=== PATIENT | female | born 1995 | race Two or more races ===

== ENCOUNTER 2016-04-21 17:56 | Emergency (ER) | payer SELFPAY ==
[2016-04-21 18:32] VITALS: BP 106/60
== END 2016-04-21 19:15 | disposition left against medical advice (07) ==
LOC: ED 17:56
DX: F41.0 Panic disorder [episodic paroxysmal anxiety] (principal)

== ENCOUNTER → 2016-10-16 14:54 | Emergency (ER) | payer SELFPAY ==
[2016-10-16 15:16] VITALS: BP 111/80
== END | disposition left against medical advice (07) ==
LOC: ED 14:54
DX: R30.9 Painful micturition, unspecified (principal); Z53.21 Procedure and treatment not carried out due to patient leaving prior to being seen by health care provider

== ENCOUNTER 2016-11-11 11:49 | Emergency (ER) | payer SELFPAY ==
[2016-11-11] MEDS ORDERED: Ondansetron INJ* 2 MG/ML VIAL IV ONE (13:29)
[2016-11-11] MEDS ORDERED: NS 0.9% 1000 ML* 1,000 ML IV ONE (13:29)
[2016-11-11 14:02] LABS: Hematocrit 39 % (35-47); Mean Corpuscular HGB Conc 33 g/dl (31-36); Mean Corpuscular Hemoglobin 30 pg (27-31); Mean Corpuscular Volume 92 fL (80-97); Mean Platelet Volume 11 um3 (7.4-10.4); Red Cell Distribution Width 13 % (10.5-15); White Blood Count 7.3 10^3/ul (3.5-10.8)
[2016-11-11 14:24] LABS: ALT 8 U/L (7-52); AST 11 U/L (13-39); Albumin 4.5 g/dL (3.2-5.2); Alkaline Phosphatase 53 U/L (34-104); Anion Gap 6 mmol/L (2-11); BUN/Creatinine Ratio 18.8 (8-20); Blood Urea Nitrogen 15 mg/dL (6-24); C Reactive Protein < 1.00 mg/L (< 5.00); CO2 Carbon Dioxide 25 mmol/L (22-32); Calcium 9.3 mg/dL (8.6-10.3); Chloride 109 mmol/L (101-111); EGFR African American 117.6 (>60); EGFR Non-African American 91.4 (>60); Globulin 2.3 g/dL (2-4); Glucose 73 mg/dL (70-100); Lipase 22 U/L (11.0-82.0); Magnesium 1.9 mg/dL (1.9-2.7); Potassium 3.8 mmol/L (3.5-5.0); Sodium 140 mmol/L (133-145); Total Protein 6.8 g/dL (6.4-8.9)
[2016-11-11] MEDS ORDERED: Ketorolac INJ* 30 MG/ML 1 ML VIAL IV ONE (15:24)
[2016-11-11] MEDS ORDERED: Morphine INJ* 4 MG/ML 1 ML SYRINGE IV ONE (15:24)
[2016-11-11 15:40] LABS: Urine Bacteria 1+ (Absent); Urine Bilirubin Negative (Negative); Urine Glucose Negative (Negative); Urine Nitrite Negative (Negative)
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
[2016-11-11 18:46] VITALS: BP 101/56
== END 2016-11-11 18:45 | disposition home or self-care (01) ==
LOC: ED 11:49
DX: R10.2 Pelvic and perineal pain (principal); R11.0 Nausea
CPT/HCPCS: 36415; 80053; 81003; 81015; 83690; 83735; 84702; 85025; 86140; 87077; 87086; 87186; 87480; 87491; 87510; 87591; 87661; 96374; 96375; 99282; J1885; J2270; J2405

== ENCOUNTER 2016-11-12 13:33 | Emergency (ER) | payer SELFPAY ==
[2016-11-12 16:37] LABS: Hematocrit 37 % (35-47); Hemoglobin 12.4 g/dl (12.0-16.0); Mean Corpuscular HGB Conc 33 g/dl (31-36); Mean Corpuscular Hemoglobin 30 pg (27-31); Mean Corpuscular Volume 90 fL (80-97); Mean Platelet Volume 10 um3 (7.4-10.4); Red Blood Count 4.15 10^6/ul (4.0-5.4); Red Cell Distribution Width 13 % (10.5-15); White Blood Count 6.1 10^3/ul (3.5-10.8)
[2016-11-12 17:10] LABS: ALT 7 U/L (7-52); AST 11 U/L (13-39); Albumin 4.3 g/dL (3.2-5.2); Alkaline Phosphatase 50 U/L (34-104); Anion Gap 5 mmol/L (2-11); BUN/Creatinine Ratio 16.9 (8-20); Blood Urea Nitrogen 12 mg/dL (6-24); C Reactive Protein < 1.00 mg/L (< 5.00); CO2 Carbon Dioxide 26 mmol/L (22-32); Calcium 9.2 mg/dL (8.6-10.3); Chloride 108 mmol/L (101-111); Glucose 82 mg/dL (70-100); Potassium 4.1 mmol/L (3.5-5.0); Sodium 139 mmol/L (133-145); Total Protein 6.3 g/dL (6.4-8.9)
--- NOTE | 2016-11-12 17:57 | RAD ---
Indication: Pelvic pain. Real-time sonography of the pelvis was performed. The uterus measures 7.0 x 3.5 x 4.0 cm. Endometrial echo measures 6 mm. The right ovary measures 3.1 x 2.7 x 2.2 cm. Left ovary measures 3.7 x 2.4 x 1.1 cm. Trace amount of free fluid is noted in the cul-de-sac. Doppler interrogation demonstrates flow in both ovaries. IMPRESSION: Unremarkable pelvic sonogram with trace free fluid.
[2016-11-12 19:21] LABS: Urine Bacteria 1+ (Absent); Urine Bilirubin Negative (Negative); Urine Glucose Negative (Negative); Urine Nitrite Negative (Negative)
[2016-11-12 19:43] VITALS: BP 104/70
--- NOTE | 2016-11-15 09:45 | PN ---
Progress Note - Progress Note Date of Service: 11/14/16 Note: Urine culture grew E. Coli Patient placed on Bactrim prior to discharge Bactrim is sensitive to organism. Nothing further at this time. Arabella Mak PA-C
--- NOTE | 2016-11-26 07:34 | ED ---
Berlin Castle Thomas, scribed for Emre Hamilton MD on 11/12/16 at 1617 . Abdominal Pain/Female - HPI Summary HPI Summary: The pt is a 20 y/o F presenting to the ED c/o lower abd pain that began weeks ago but has worsened since yesterday. She [place] [facility] [place], when she was seen by Dr. Alvarenga for the same complaint. The pain radiates into her pelvic region. The pain is rated 10/10. The pain is aggravated by lying on her R side. The pain is alleviated by nothing. Pt additionally c/o R-sided numbness, pleuritic CP, nausea, and vomiting. Pt denies vaginal discharge and vaginal bleeding. The patient had a kidney infection two months ago. PMHx: kidney infection, ovarian cysts. PSHx: none. SHx: smoking, no alcohol, no illicit drugs. The patient reports that her constellation of symptoms is very similar to her last kidney infection. The patient has not had a menstrual period in multiple months because she has Nexplanon implant. - History of Current Complaint Chief Complaint: EDGeneral Stated Complaint: RT SIDE BODY NUMBNESS Time Seen by Provider: 11/12/16 16:02 Hx Obtained From: Patient, Medical Records Onset/Duration: Lasting Weeks, Still Present, Worse Since - yesterday Timing: Constant Severity Currently: Severe Pain Intensity: 10 Pain Scale Used: 0-10 Numeric Location: Other - Lower abd Radiates: Yes Radiates to: Other - Pelvic Aggravating Factor(s): Other: - lying on her R side Alleviating Factor(s): Nothing Associated Signs and Symptoms: Positive: Chest Pain - pleuritic, Nausea, Vomiting, Other: - POS: R-sided numbness. Negative: Fever, Vaginal Bleeding, Vaginal Discharge Allergies/Adverse Reactions: Allergies Allergy/AdvReac Type Severity Reaction Status Date / Time No Known Allergies Allergy Verified 11/12/16 16:35 PMH/Surg Hx/FS Hx/Imm Hx Previously Healthy: No Endocrine/Hematology History: Denies: Hx Anticoagulant Therapy, Hx Blood Disorders Respiratory History: Denies: Hx Asthma History: Reports: Hx Kidney Infection, Other Problems/Disorders - HX PCOS Musculoskeletal History: Reports: Other Musculoskeletal History - Lt foot fx Psychiatric History: Reports: Hx Anxiety, Hx Depression - Surgical History Surgery Procedure, Year, and Place: none Infectious Disease History: Denies: Traveled Outside the [place] in Last 30 Days - Family History Known Family History: Positive: Unknown - Patient is adopted - Social History Alcohol Use: None Hx Substance Use: No Substance Use Type: Reports: None Hx Tobacco Use: No Smoking Status (MU): Never Smoked Tobacco Review of Systems Constitutional: Negative Negative: Fever Positive: Chest Pain - pleuritic Positive: Abdominal Pain - lower abd, 10/10, worse since yesterday, radiates to pelvic region, Vomiting, Nausea Negative: discharge, other - NEG: vaginal bleeding Positive: Numbness - R-sided All Other Systems Reviewed And Are Negative: Yes Physical Exam - Summary Physical Exam Summary: VITAL SIGNS: Reviewed. GENERAL: Patient is a well-developed and nourished female who is lying comfortable in the stretcher. ~Patient is not in any acute respiratory distress. HEAD AND FACE: Normocephalic and atraumatic. EYES: PERRLA, EOMI x 2, No injected conjunctiva. EARS: Hearing grossly intact. Ear canals and tympanic membranes are WNL. MOUTH: Oropharynx within normal limits. NECK: Supple, trachea is midline, no adenopathy, no JVD. CHEST: Symmetric, no tenderness at palpation LUNGS: Clear to auscultation bilaterally. No wheezing or crackles. CVS: RRR, S1 and S2 present, no murmurs or gallops appreciated. ABDOMEN: There is some tenderness to the pelvic area. Soft, no signs of distention. Positive bowel sounds. No rebound no guarding, and no masses palpated. No abdominal bruit or pulsations. EXTREMITIES: FROM in all major joints, no edema, no cyanosis or clubbing. NEURO: Alert and oriented x 3. No acute neurological deficits. Speech is normal. SKIN: Dry and warm Triage Information Reviewed: Yes Vital Signs On Initial Exam: Initial Vitals Temp Pulse Resp BP Pulse Ox 98.4 F 97 18 105/78 100 11/12/16 13:41 11/12/16 13:41 11/12/16 13:41 11/12/16 13:41 11/12/16 13:41 Vital Signs Reviewed: Yes Diagnostics - Vital Signs Vital Signs Temp Pulse Resp BP Pulse Ox 11/12/16 13:41 98.4 F 97 18 105/78 100 - Laboratory Lab Results: Lab Results 0811/12/16 11/12/16 Range/Units 16:30 16:30 18:44 WBC 6.1 (3.5-10.8) 10^3/ul RBC 4.15 (4.0-5.4) 10^6/ul Hgb 12.4 (12.0-16.0) g/dl Hct 37 (35-47) % MCV 90 (80-97) fL MCH 30 (27-31) pg MCHC 33 (31-36) g/dl RDW 13 (10.5-15) % Plt Count 161 (150-450) 10^3/ul MPV 10 (7.4-10.4) um3 Neut % (Auto) 40.5 (38-83) % Lymph % (Auto) 45.7 (25-47) % [place] % (Auto) 8.5 (1-9) % Eos % (Auto) 4.4 (0-6) % Baso % (Auto) 0.9 (0-2) % Absolute Neuts (auto) 2.5 (1.5-7.7) 10^3/ul Absolute Lymphs (auto) 2.8 (1.0-4.8) 10^3/ul Absolute Monos (auto) 0.5 (0-0.8) 10^3/ul Absolute Eos (auto) 0.3 (0-0.6) 10^3/ul Absolute Basos (auto) 0.1 (0-0.2) 10^3/ul Absolute Nucleated RBC 0.01 10^3/ul Nucleated RBC % 0.2 Sodium 139 (133-145) mmol/L Potassium 4.1 (3.5-5.0) mmol/L Chloride 108 (101-111) mmol/L Carbon Dioxide 26 (22-32) mmol/L Anion Gap 5 (2-11) mmol/L BUN 12 (6-24) mg/dL Creatinine 0.71 (0.51-0.95) mg/dL Est GFR ( Amer) 135.0 (>60) Est GFR (Non-Af Amer) 105.0 (>60) BUN/Creatinine Ratio 16.9 (8-20) Glucose 82 (70-100) mg/dL Calcium 9.2 (8.6-10.3) mg/dL Total Bilirubin 0.60 (0.2-1.0) mg/dL AST 11 L (13-39) U/L ALT 7 (7-52) U/L Alkaline Phosphatase 50 (34-104) U/L C-Reactive Protein < 1.00 (< 5.00) mg/L Total Protein 6.3 L (6.4-8.9) g/dL Albumin 4.3 (3.2-5.2) g/dL Globulin 2.0 (2-4) g/dL Albumin/Globulin Ratio 2.2 (1-3) Urine Color Straw Urine Appearance Clear Urine pH 8.0 (5-9) Ur Specific [place] 1.009 L (1.010-1.030) Urine Protein Negative (Negative) Urine Ketones Negative (Negative) Urine Blood 1+ H (Negative) Urine Nitrate Negative (Negative) Urine Bilirubin Negative (Negative) Urine Urobilinogen Negative (Negative) Ur Leukocyte Esterase Negative (Negative) Urine WBC (Auto) Trace(0-5/hpf) (Absent) Urine RBC (Auto) Trace(0-2/hpf) (Absent) Ur Squamous Epith Cells Present H (Absent) Urine Bacteria 1+ H (Absent) Urine Glucose Negative (Negative) C.trachomatis (Amp Det) (Negative) N.gonorrhoeae (Amp Det) (Negative) 11/12/16 Range/Units 18:44 WBC (3.5-10.8) 10^3/ul RBC (4.0-5.4) 10^6/ul Hgb (12.0-16.0) g/dl Hct (35-47) % MCV (80-97) fL MCH (27-31) pg MCHC (31-36) g/dl RDW (10.5-15) % Plt Count (150-450) 10^3/ul MPV (7.4-10.4) um3 Neut % (Auto) (38-83) % Lymph % (Auto) (25-47) % [place] % (Auto) (1-9) % Eos % (Auto) (0-6) % Baso % (Auto) (0-2) % Absolute Neuts (auto) (1.5-7.7) 10^3/ul Absolute Lymphs (auto) (1.0-4.8) 10^3/ul Absolute Monos (auto) (0-0.8) 10^3/ul Absolute Eos (auto) (0-0.6) 10^3/ul Absolute Basos (auto) (0-0.2) 10^3/ul Absolute Nucleated RBC 10^3/ul Nucleated RBC % Sodium (133-145) mmol/L Potassium (3.5-5.0) mmol/L Chloride (101-111) mmol/L Carbon Dioxide (22-32) mmol/L Anion Gap (2-11) mmol/L BUN (6-24) mg/dL Creatinine (0.51-0.95) mg/dL Est GFR ( Amer) (>60) Est GFR (Non-Af Amer) (>60) BUN/Creatinine Ratio (8-20) Glucose (70-100) mg/dL Calcium (8.6-10.3) mg/dL Total Bilirubin (0.2-1.0) mg/dL AST (13-39) U/L ALT (7-52) U/L Alkaline Phosphatase (34-104) U/L C-Reactive Protein (< 5.00) mg/L Total Protein (6.4-8.9) g/dL Albumin (3.2-5.2) g/dL Globulin (2-4) g/dL Albumin/Globulin Ratio (1-3) Urine Color Urine Appearance Urine pH (5-9) Ur Specific Brandon (1.010-1.030) Urine Protein (Negative) Urine Ketones (Negative) Urine Blood (Negative) Urine Nitrate (Negative) Urine Bilirubin (Negative) Urine Urobilinogen (Negative) Ur Leukocyte Esterase (Negative) Urine WBC (Auto) (Absent) Urine RBC (Auto) (Absent) Ur Squamous Epith Cells (Absent) Urine Bacteria (Absent) Urine Glucose (Negative) C.trachomatis (Amp Det) Negative (Negative) N.gonorrhoeae (Amp Det) Negative (Negative) Result Diagrams: 11/12/16 16:30 11/12/16 16:30 Lab Statement: Any lab studies that have been ordered have been reviewed, and results considered in the medical decision making process. - Additional Comments Diagnostic Additional Comments: Transvaginal US. Interpreted by radiologist. Impression: Unremarkable pelvic sonogram with trace free fluid. Re-Evaluation - Re-Evaluation First Eval Re-Evaluation Time: 18:02 Change: Improved Comment: She is feeling better and her symptoms have resolved. At this point, we are only waiting on UA. She is ambulating and eating and drinking without N/ V. Abdominal Pain Fem Course/Dx - Course Course Of Treatment: The pt is a 20 y/o F presenting to the ED c/o lower abd pain that began weeks ago but has worsened since yesterday. She was a patient [place] [facility] [place], when she was seen by Dr. Alvarenga for the same complaint. The pain radiates into her pelvic region. The pain is rated 10/10. The pain is aggravated by lying on her R side. The pain is alleviated by nothing. Pt additionally c/o R-sided numbness, pleuritic CP, nausea, and vomiting. Pt denies vaginal discharge and vaginal bleeding. The patient had a kidney infection two months ago. PMHx: kidney infection, ovarian cysts. PSHx: none. SHx : smoking, no alcohol, no illicit drugs. The patient reports that her constellation of symptoms is very similar to her last kidney infection. The patient has not had a menstrual period in multiple months because she has Nexplanon implant. Tests are without significant abnormality. Transvaginal US reveals Unremarkable pelvic sonogram with trace free fluid. The patient is asymptomatic in the ED. She had a pelvic exam yesterday for which GC and chlamydia was sent, but they are still pending. The UA is still pending, results are nehative for UTI. At this point, since the patient is asymptomatic, we will discharge the patient with follow up by PCP. The patient declined another pelvic exam. The patient is alert and oriented x3 and rates her current level of pain 0/10. The patient is ambulating in the ED and eating and drinking without nausea and vomiting. - Diagnoses Provider Diagnoses: Back pain Discharge - Discharge Plan Condition: Stable Disposition: HOME Patient Education Materials: Back Pain (ED) Referrals: [facility] [place] - 3 Days The documentation as recorded by the [place] liang Thomas accurately reflects the service I personally performed and the decisions made by me, Emre Hamilton MD.
== END 2016-11-12 19:41 | disposition home or self-care (01) ==
LOC: ED 13:33
DX: M54.9 Dorsalgia, unspecified (principal); N39.0 Urinary tract infection, site not specified; B96.20 Unspecified Escherichia coli [E. coli] as the cause of diseases classified elsewhere; R10.30 Lower abdominal pain, unspecified; R07.9 Chest pain, unspecified; R11.2 Nausea with vomiting, unspecified
CPT/HCPCS: 36415; 76830; 80053; 81003; 81015; 85025; 86140; 87077; 87086; 87186; 87491; 87591; 99282

== ENCOUNTER 2016-12-01 14:19 | Emergency (ER) | payer SELFPAY ==
[2016-12-01 14:31] VITALS: BP 117/59
[2016-12-01] MEDS ORDERED: NS 0.9% 1000 ML* 1,000 ML IV ONE (16:21)
[2016-12-01] MEDS ORDERED: diPHENhydraMINE IV* 50 MG/ML 1 ml VIAL (BENADRYL) IV ONE (16:21)
[2016-12-01] MEDS ORDERED: Ondansetron INJ* 2 MG/ML VIAL IV ONE (16:21)
[2016-12-01 16:36] LABS: Hematocrit 42 % (35-47); Hemoglobin 14.2 g/dl (12.0-16.0); Mean Corpuscular HGB Conc 34 g/dl (31-36); Mean Corpuscular Hemoglobin 30 pg (27-31); Mean Corpuscular Volume 89 fL (80-97); Mean Platelet Volume 10 um3 (7.4-10.4); Red Blood Count 4.71 10^6/ul (4.0-5.4); Red Cell Distribution Width 14 % (10.5-15); White Blood Count 7.6 10^3/ul (3.5-10.8)
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
[2016-12-01] MEDS ORDERED: Ketorolac INJ* 30 MG/ML 1 ML VIAL IV PUSH ONE (17:12)
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
== END 2016-12-01 20:05 | disposition home or self-care (01) ==
LOC: ED 14:19
DX: S06.0X9A Concussion with loss of consciousness of unspecified duration, initial encounter (principal); S05.12XA Contusion of eyeball and orbital tissues, left eye, initial encounter; R51 Headache; R11.2 Nausea with vomiting, unspecified; Z72.0 Tobacco use; Y09 Assault by unspecified means; Y93.9 Activity, unspecified; Y92.9 Unspecified place or not applicable; M26.609 Unspecified temporomandibular joint disorder, unspecified side
CPT/HCPCS: 36415; 70450; 70486; 85025; 85610; 85730; 96374; 96375; 99283; J1200; J1885; J2405

== ENCOUNTER 2017-03-03 16:49 | Emergency (ER) | payer MEDICAID ==
[2017-03-03 19:28] LABS: Hematocrit 38 % (35-47); Hemoglobin 12.7 g/dl (12.0-16.0); Mean Corpuscular HGB Conc 33 g/dl (31-36); Mean Corpuscular Hemoglobin 30 pg (27-31); Mean Corpuscular Volume 90 fL (80-97); Mean Platelet Volume 11 um3 (7.4-10.4); Red Blood Count 4.24 10^6/ul (4.0-5.4); Red Cell Distribution Width 14 % (10.5-15)
[2017-03-03 19:44] LABS: ALT 10 U/L (7-52); AST 14 U/L (13-39); Albumin 4.4 g/dL (3.2-5.2); Alkaline Phosphatase 55 U/L (34-104); Anion Gap 4 mmol/L (2-11); BUN/Creatinine Ratio 16.9 (8-20); Blood Urea Nitrogen 12 mg/dL (6-24); CO2 Carbon Dioxide 28 mmol/L (22-32); Calcium 9.2 mg/dL (8.6-10.3); Chloride 104 mmol/L (101-111); EGFR African American 133.6 (>60); EGFR Non-African American 103.9 (>60); Globulin 2.7 g/dL (2-4); Glucose 85 mg/dL (70-100); Potassium 3.7 mmol/L (3.5-5.0); Sodium 136 mmol/L (133-145); Total Protein 7.1 g/dL (6.4-8.9)
[2017-03-03 20:34] LABS: Urine Bacteria Absent (Absent); Urine Bilirubin Negative (Negative); Urine Glucose Negative (Negative); Urine Nitrite Negative (Negative)
[2017-03-03 21:46] VITALS: BP 104/68
--- NOTE | 2017-03-03 22:01 | ED ---
Blade Castle Gabriel, scribed for Jose Perry MD on 03/03/17 at 1829 . Abdominal Pain/Female - HPI Summary HPI Summary: This patient is a 21 year old F presenting to [facility] with a chief complaint of ABD pain since 2 days ago. The patient rates the pain 8/10 in severity and describes it as constant. Symptoms aggravated by sleeping on her stomach. Patients LNMP was 02/07/17 and only lasted one day. Patient denies urination problems and bm problems. - History of Current Complaint Chief Complaint: EDAbdPain Stated Complaint: ABD PAIN Time Seen by Provider: 03/03/17 18:08 Hx Obtained From: Patient Hx Last Menstrual Period: 02/07/17 Onset/Duration: Lasting Days - 2, Still Present Timing: Constant Pain Intensity: 8 Pain Scale Used: 0-10 Numeric Location: Diffuse Aggravating Factor(s): Other: - position Associated Signs and Symptoms: Positive: Negative - problems urinating and bm problems Allergies/Adverse Reactions: Allergies Allergy/AdvReac Type Severity Reaction Status Date / Time No Known Allergies Allergy Verified 12/01/16 14:31 PMH/Surg Hx/FS Hx/Imm Hx Previously Healthy: No Endocrine/Hematology History: Denies: Hx Anticoagulant Therapy, Hx Blood Disorders Respiratory History: Denies: Hx Asthma History: Reports: Hx Kidney Infection, Other Problems/Disorders - HX PCOS Musculoskeletal History: Reports: Other Musculoskeletal History - Lt foot fx Neurological History: Reports: Other Neuro Impairments/Disorders - 5 concussions Psychiatric History: Reports: Hx Anxiety - no meds, has counselor - does not feel she's interactive, Hx Depression - Surgical History Surgery Procedure, Year, and Place: none Infectious Disease History: No Infectious Disease History: Denies: Traveled Outside the [place] in Last 30 Days - Family History Known Family History: Positive: Unknown - Patient is adopted - Social History Alcohol Use: None Hx Substance Use: Yes Substance Use Type: Reports: Marijuana Hx Tobacco Use: Yes Smoking Status (MU): Current Some Day Smoker Review of Systems Gastrointestinal: Negative - BM problems Positive: Abdominal Pain Positive: no symptoms reported All Other Systems Reviewed And Are Negative: Yes Physical Exam - Summary Physical Exam Summary: Appearance: The patient is well-nourished in no acute distress and in no acute pain. Skin: The skin is warm and dry and skin color reflects adequate perfusion. HEENT: ~The head is normocephalic and atraumatic. The pupils are equal and reactive. The conjunctivae are clear and without drainage. ~Nares are patent and without drainage. ~Mouth reveals moist mucous membranes and the throat is without erythema and exudate. ~The external ears are intact. The ear canals are patent and without drainage. The tympanic membranes are intact. Neck: the neck is supple with full range of motion and non-tender. There are no carotid bruits. ~There is no neck vein distension. Respiratory: Chest is non-tender. ~Lungs are clear to auscultation and breath sounds are symmetrical and equal. Cardiovascular: Heart is regular rate and rhythm. ~There is no murmur or rub auscultated. ~~There is no peripheral edema and pulses are symmetrical and equal. Abdomen: The abdomen is soft. ~There are normal bowel sounds heard in all four quadrants and there is no organomegaly palpated. Mild periumbilical tenderness Musculoskeletal: There is no back tenderness noted. ~Extremities are non-tender with full range of motion. ~There is good capillary refill. ~There is no peripheral edema or calf tenderness elicited. Neurological: Patient is alert and oriented to person, place and time. ~The patient has symmetrical motor strength in all four extremities. ~Cranial nerves are grossly intact. Deep tendon reflexes are symmetrical and equal in all four extremities. Psychiatric: The patient has an appropriate affect and does not exhibit any anxiety or depression. Triage Information Reviewed: Yes Vital Signs On Initial Exam: Initial Vitals Temp Pulse Resp BP Pulse Ox 98.2 F 80 16 105/60 99 03/03/17 16:51 03/03/17 16:51 03/03/17 16:51 03/03/17 16:51 03/03/17 16:51 Vital Signs Reviewed: Yes Diagnostics - Vital Signs Vital Signs Temp Pulse Resp BP Pulse Ox 03/03/17 16:51 98.2 F 80 16 105/60 99 - Laboratory Lab Results: Lab Results 03/03/17 03/03/17 03/03/17 Range/Units 19:20 19:20 20:00 WBC 9.0 (3.5-10.8) 10^3/ul RBC 4.24 (4.0-5.4) 10^6/ul Hgb 12.7 (12.0-16.0) g/dl Hct 38 (35-47) % MCV 90 (80-97) fL MCH 30 (27-31) pg MCHC 33 (31-36) g/dl RDW 14 (10.5-15) % Plt Count 170 (150-450) 10^3/ul MPV 11 H (7.4-10.4) um3 Neut % (Auto) 52.7 (38-83) % Lymph % (Auto) 36.9 (25-47) % [place] % (Auto) 8.2 (1-9) % Eos % (Auto) 1.4 (0-6) % Baso % (Auto) 0.8 (0-2) % Absolute Neuts (auto) 4.7 (1.5-7.7) 10^3/ul Absolute Lymphs (auto) 3.3 (1.0-4.8) 10^3/ul Absolute Monos (auto) 0.7 (0-0.8) 10^3/ul Absolute Eos (auto) 0.1 (0-0.6) 10^3/ul Absolute Basos (auto) 0.1 (0-0.2) 10^3/ul Absolute Nucleated RBC 0 10^3/ul Nucleated RBC % 0 Sodium 136 (133-145) mmol/L Potassium 3.7 (3.5-5.0) mmol/L Chloride 104 (101-111) mmol/L Carbon Dioxide 28 (22-32) mmol/L Anion Gap 4 (2-11) mmol/L BUN 12 (6-24) mg/dL Creatinine 0.71 (0.51-0.95) mg/dL Est GFR ( Amer) 133.6 (>60) Est GFR (Non-Af Amer) 103.9 (>60) BUN/Creatinine Ratio 16.9 (8-20) Glucose 85 (70-100) mg/dL Calcium 9.2 (8.6-10.3) mg/dL Total Bilirubin 0.60 (0.2-1.0) mg/dL AST 14 (13-39) U/L ALT 10 (7-52) U/L Alkaline Phosphatase 55 (34-104) U/L C-Reactive Protein 1.10 (< 5.00) mg/L Total Protein 7.1 (6.4-8.9) g/dL Albumin 4.4 (3.2-5.2) g/dL Globulin 2.7 (2-4) g/dL Albumin/Globulin Ratio 1.6 (1-3) Beta HCG, Quant < 0.60 mIU/mL Urine Color Yellow Urine Appearance Cloudy Urine pH 6.0 (5-9) Ur Specific [place] 1.021 (1.010-1.030) Urine Protein Negative (Negative) Urine Ketones Negative (Negative) Urine Blood Negative (Negative) Urine Nitrate Negative (Negative) Urine Bilirubin Negative (Negative) Urine Urobilinogen Negative (Negative) Ur Leukocyte Esterase 1+ H (Negative) Urine WBC (Auto) 2+(11-20/hpf) H (Absent) Urine RBC (Auto) Absent (Absent) Ur Squamous Epith Cells Present H (Absent) Amorphous Crystals Present H (Absent) Urine Bacteria Absent (Absent) Urine Glucose Negative (Negative) Urine Ascorbic Acid * H (Negative) Result Diagrams: 03/03/17 19:20 03/03/17 19:20 Lab Statement: Any lab studies that have been ordered have been reviewed, and results considered in the medical decision making process. Abdominal Pain Fem Course/Dx - Course Course Of Treatment: Ms. Jerez presented with abdominal pain for several days which she said was quite bad. She did not look uncomfortable and was barely tender. Her W/U was normal. She may need further testing if she doesn't improve or if she worsens but at this point, I see no evidence for a dangerous process. - Diagnoses Provider Diagnoses: Abdominal pain Discharge - Discharge Plan Condition: Stable Disposition: HOME Patient Education Materials: Acute Abdominal Pain (ED) Referrals: No Primary Care Phys,NOPCP [Primary Care Provider] - Additional Instructions: Follow up with primary care provider in 3-4 days. RETURN TO THE EMERGENCY DEPARTMENT FOR CHANGING OR WORSENING SYMPTOMS. The documentation as recorded by the Blade liang Gabriel accurately reflects the service I personally performed and the decisions made by me, Jose Perry MD.
--- NOTE | 2017-03-06 09:03 | PN ---
Progress Note - Progress Note Date of Service: 03/06/17 Note: Patient urine culture grew Gardnerella vaginalis >100,000. left vm telling to call back if having any symptoms and will send script flagyl 500mg bid x7 days.
== END 2017-03-03 21:16 | disposition home or self-care (01) ==
LOC: ED 16:49
DX: R10.9 Unspecified abdominal pain (principal); F17.200 Nicotine dependence, unspecified, uncomplicated; N39.0 Urinary tract infection, site not specified; B96.89 Other specified bacterial agents as the cause of diseases classified elsewhere
CPT/HCPCS: 36415; 80053; 81003; 81015; 84702; 85025; 86140; 87077; 87086; 99282

== ENCOUNTER 2017-04-25 10:26 | Emergency (ER) | payer MEDICAID, OTHER ==
[2017-04-25 13:36] VITALS: BP 0/0
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
== END 2017-04-25 13:30 | disposition left against medical advice (07) ==
LOC: ED 10:26
DX: S10.91XA Abrasion of unspecified part of neck, initial encounter (principal); Z53.21 Procedure and treatment not carried out due to patient leaving prior to being seen by health care provider; Z72.0 Tobacco use; X58.XXXA Exposure to other specified factors, initial encounter; Y92.9 Unspecified place or not applicable
CPT/HCPCS: 99282

== ENCOUNTER 2017-05-16 16:59 | Emergency (ER) | payer OTHER ==
[2017-05-16 19:17] LABS: ABS Basophils 0.1 10^3/ul (0-0.2); ABS Eosinophils 0.3 10^3/ul (0-0.6); ABS Monocytes 1.2 10^3/ul (0-0.8); ABS Neutrophils 4.8 10^3/ul (1.5-7.7); ABS Nucleated RBC 0 10^3/ul; Hematocrit 37 % (35-47); Hemoglobin 12.5 g/dl (12.0-16.0); Lymphocyte % 38.3 % (25-47); Mean Corpuscular HGB Conc 34 g/dl (31-36); Mean Corpuscular Hemoglobin 30 pg (27-31); Mean Corpuscular Volume 89 fL (80-97); Mean Platelet Volume 10 um3 (7.4-10.4); Nucleated Red Blood Cells % 0.1; Platelet Count 188 10^3/ul (150-450); Red Blood Count 4.13 10^6/ul (4.0-5.4); Red Cell Distribution Width 13 % (10.5-15); White Blood Count 10.3 10^3/ul (3.5-10.8)
[2017-05-16] MEDS ORDERED: Metoclopramide IV* 5 MG/ML 2 ML VIAL IV SLOW PU ONE (19:26)
[2017-05-16 19:35] LABS: EGFR Non-African American 100.6 (>60)
[2017-05-16 20:08] LABS: Urine Appearance Cloudy; Urine Blood Negative (Negative); Urine Color Yellow; Urine Ketones Negative (Negative); Urine Protein Negative (Negative); Urine Specific Gravity 1.019 (1.010-1.030); Urine Urobilinogen Negative (Negative)
[2017-05-16 21:56] VITALS: BP 103/65
--- NOTE | 2017-05-16 21:58 | RAD ---
HISTORY: Pelvic pain in a female COMPARISONS: None TECHNIQUE: Multiple transverse and longitudinal ultrasound images were obtained of the pelvis using grayscale, color flow, spectral and M-mode sonographic imaging. FINDINGS: UTERUS: The uterus is normal in shape, size, contour, and echotexture. GESTATION: A gestational sac with a mean diameter of 5 mm is seen this corresponds to a gestational age of 5 weeks and 0 days. No pole or other products of conception are visualized. CUL-DE-SAC: There is a large amount of free fluid in the cul-de-sac. RIGHT OVARY: The right ovary measures 3.5 x 2.4 x 2.6 cm. Within the right ovary there is a mostly anechoic and avascular structure measuring 2.1 cm in greatest dimension most consistent with a corpus luteum in this clinical setting. LEFT OVARY: The left ovary measures 3.1 x 1.1 x 3.2 cm. IMPRESSION: Empty 5 mm gestational sac as described above. Differential diagnosis includes too early to visualize, spontaneous or ectopic . Please correlate to serial beta-hCG. There is also a large amount of free fluid in the cul-de-sac.
--- NOTE | 2017-05-16 22:05 | ED ---
[place] [facility], scribed for Amrit Castaneda MD on 05/16/17 at 1928 . Abdominal Pain/Female - HPI Summary HPI Summary: The patient is a 21 year old female presenting with intermittent abdominal pain for the last two days. She complains of nausea, vomiting, and diarrhea. She denies dysuria. LMP 04/07/17 (5.5 weeks ago). The patient is sexually active and does not use preventive measures. She denies prior pregnancies. - History of Current Complaint Chief Complaint: EDAbdPain Stated Complaint: ABD PAIN Time Seen by Provider: 05/16/17 19:08 Hx Obtained From: Patient Hx Last Menstrual Period: 04/07/17 Onset/Duration: Lasting Days - 2, Still Present Timing: Intermittent Episode Lasting Severity Currently: Moderate Pain Intensity: 3 Pain Scale Used: 0-10 Numeric Aggravating Factor(s): Nothing Alleviating Factor(s): Nothing Associated Signs and Symptoms: Positive: Nausea, Vomiting, Diarrhea. Negative: Urinary Symptoms Allergies/Adverse Reactions: Allergies Allergy/AdvReac Type Severity Reaction Status Date / Time No Known Allergies Allergy Verified 12/01/16 14:31 PMH/Surg Hx/FS Hx/Imm Hx Endocrine/Hematology History: Denies: Hx Anticoagulant Therapy, Hx Blood Disorders Respiratory History: Denies: Hx Asthma History: Reports: Hx Kidney Infection, Other Problems/Disorders - HX PCOS Musculoskeletal History: Reports: Other Musculoskeletal History - Lt foot fx Neurological History: Reports: Other Neuro Impairments/Disorders - 5 concussions Psychiatric History: Reports: Hx Anxiety - no meds, has counselor - does not feel she's interactive, Hx Depression - Surgical History Surgery Procedure, Year, and Place: none Infectious Disease History: No Infectious Disease History: Denies: Traveled Outside the [place] in Last 30 Days - Family History Known Family History: Positive: Unknown - Patient is adopted - Social History Alcohol Use: None Hx Substance Use: Yes Substance Use Type: Reports: Marijuana Hx Tobacco Use: Yes Smoking Status (MU): Current Some Day Smoker Review of Systems Negative: Fever Positive: Abdominal Pain, Vomiting, Diarrhea, Nausea Negative: dysuria All Other Systems Reviewed And Are Negative: Yes Physical Exam - Summary Physical Exam Summary: VITAL SIGNS: Reviewed. GENERAL:~Patient is a well-developed and nourished FEMALE who is lying comfortable in the stretcher. Patient is not in any acute respiratory distress. HEAD AND FACE: No signs of trauma. No ecchymosis, hematomas or skull depressions. No sinus tenderness. EYES: PERRLA, EOMI x 2, No injected conjunctiva, no nystagmus. EARS: Hearing grossly intact. Ear canals and tympanic membranes are within normal limits. MOUTH: Oropharynx within normal limits. NECK: Supple, trachea is midline, no adenopathy, no JVD, no carotid bruit, no c- spine tenderness, neck with full ROM. CHEST: Symmetric, no tenderness at palpation LUNGS: Clear to auscultation bilaterally. No wheezing or crackles. CVS: Regular rate and rhythm, S1 and S2 present, no murmurs or gallops appreciated. ABDOMEN: Soft, non-tender. No signs of distention. No rebound no guarding, and no masses palpated. Bowel sounds are normal. EXTREMITIES: FROM in all major joints, no edema, no cyanosis or clubbing. NEURO: Alert and oriented x 3. No acute neurological deficits. Speech is normal and follows commands. SKIN: Dry and warm Triage Information Reviewed: Yes Vital Signs On Initial Exam: Initial Vitals Temp Pulse Resp BP Pulse Ox 98.3 F 80 16 117/55 100 05/16/17 17:02 05/16/17 17:02 05/16/17 17:02 05/16/17 17:02 05/16/17 17:02 Vital Signs Reviewed: Yes Diagnostics - Vital Signs Vital Signs Temp Pulse Resp BP Pulse Ox 05/16/17 17:02 98.3 F 80 16 117/55 100 - Laboratory Lab Results: Lab Results 05/16/17 Range/Units 19:05 WBC 10.3 (3.5-10.8) 10^3/ul RBC 4.13 (4.0-5.4) 10^6/ul Hgb 12.5 (12.0-16.0) g/dl Hct 37 (35-47) % MCV 89 (80-97) fL MCH 30 (27-31) pg MCHC 34 (31-36) g/dl RDW 13 (10.5-15) % Plt Count 188 (150-450) 10^3/ul MPV 10 (7.4-10.4) um3 Neut % (Auto) 46.5 (38-83) % Lymph % (Auto) 38.3 (25-47) % [place] % (Auto) 11.2 H (1-9) % Eos % (Auto) 3.0 (0-6) % Baso % (Auto) 1.0 (0-2) % Absolute Neuts (auto) 4.8 (1.5-7.7) 10^3/ul Absolute Lymphs (auto) 4.0 (1.0-4.8) 10^3/ul Absolute Monos (auto) 1.2 H (0-0.8) 10^3/ul Absolute Eos (auto) 0.3 (0-0.6) 10^3/ul Absolute Basos (auto) 0.1 (0-0.2) 10^3/ul Absolute Nucleated RBC 0 10^3/ul Nucleated RBC % 0.1 Result Diagrams: 05/16/17 19:05 05/16/17 19:05 Lab Statement: Any lab studies that have been ordered have been reviewed, and results considered in the medical decision making process. - Additional Comments Diagnostic Additional Comments: Ultrasound Fetus: According to the electronic technologist, the ultrasound pelvis shows an intrauterine sac with no pole Abdominal Pain Fem Course/Dx - Course Course Of Treatment: The patient is a 21 year old female presenting with intermittent abdominal pain for the last two days. She complains of nausea, vomiting, and diarrhea. She denies dysuria. Bloodwork was obtained. Beta HCG is 4561. Urinalysis is negative for UTI. She was given a liter of LR and Reglan. According to the electronic technologist, the ultrasound pelvis shows an intrauterine sac with no pole. The patient will be discharged home with OB /DECORATING MACHINE TENDER follow up. - Diagnoses Provider Diagnoses: Early stage of Discharge - Discharge Plan Condition: Stable Disposition: HOME Prescriptions: Metoclopramide TAB* [Reglan TAB*] 10 mg PO Q6H PRN #20 tab PRN Reason: Nausea/Vomiting Patient Education Materials: First Trimester (ED) Referrals: [facility] PHYSICIAN REFERRAL [Outside] - 3 Days Christiano Khan MD [Medical Doctor] - 3 Days Additional Instructions: Please use the [facility] Physician Referral Service to make an appointment with an OB/ DECORATING MACHINE TENDER and follow up in the next three days. I have given you a referral to Dr. Khan, and you can follow up with him if you like. Return to the emergency department for any new or worsening symptoms. The documentation as recorded by the [place] liang Thomas accurately reflects the service I personally performed and the decisions made by me, Amrit Castaneda MD.
== END 2017-05-16 22:03 | disposition home or self-care (01) ==
LOC: ED 16:59
DX: O26.891 Other specified pregnancy related conditions, first trimester (principal); R10.9 Unspecified abdominal pain; O21.0 Mild hyperemesis gravidarum; O99.331 Smoking (tobacco) complicating pregnancy, first trimester; Z3A.01 Less than 8 weeks gestation of pregnancy
CPT/HCPCS: 36415; 76801; 80053; 81003; 83690; 84702; 85025; 86141; 96361; 96374; 99283; J2765

== ENCOUNTER 2017-05-22 11:32 | Emergency (ER) | payer OTHER ==
[2017-05-22 13:01] LABS: ABS Basophils 0 10^3/ul (0-0.2); ABS Eosinophils 0.1 10^3/ul (0-0.6); ABS Lymphocytes 2.8 10^3/ul (1.0-4.8); ABS Monocytes 0.8 10^3/ul (0-0.8); ABS Neutrophils 8.8 10^3/ul (1.5-7.7); ABS Nucleated RBC 0 10^3/ul; Eosinophil % 0.9 % (0-6); Hematocrit 38 % (35-47); Hemoglobin 12.8 g/dl (12.0-16.0); Mean Corpuscular HGB Conc 34 g/dl (31-36); Mean Corpuscular Hemoglobin 30 pg (27-31); Mean Corpuscular Volume 89 fL (80-97); Mean Platelet Volume 10 um3 (7.4-10.4); Nucleated Red Blood Cells % 0; Platelet Count 182 10^3/ul (150-450); Red Blood Count 4.26 10^6/ul (4.0-5.4); Red Cell Distribution Width 13 % (10.5-15); White Blood Count 12.5 10^3/ul (3.5-10.8)
[2017-05-22 13:15] LABS: INR 0.95 (0.77-1.02)
[2017-05-22 13:15] LABS: Urine Appearance Clear; Urine Blood Negative (Negative); Urine Color Yellow; Urine Ketones 1+ (Negative); Urine Protein Negative (Negative); Urine Specific Gravity 1.019 (1.010-1.030); Urine Urobilinogen Negative (Negative)
[2017-05-22 13:25] LABS: EGFR Non-African American 109.2 (>60)
--- NOTE | 2017-05-22 14:34 | RAD ---
INDICATION: Early with bleeding COMPARISON: None TECHNIQUE: Transvaginal scans were performed for early determination. FINDINGS: There is an early intrauterine gestational sac corresponding to a 5 week 6 day gestation. A yolk sac, pole, and cardiac pulsations are confirmed. An accurate heart rate could not be obtained due to the early age of the gestation. An estimate of age based on crown-rump length cannot be obtained due to the early age of the gestation. The adnexa appear normal with a 2.3 cm right-sided corpus luteum cyst. Overall measurements the right ovary 3.5 a 2.2 x 2.6 cm and measures left ovary are 3.0 x 1.3 x 2.2 cm. There is a small amount of fluid in cul-de-sac. IMPRESSION: EARLY INTRAUTERINE GESTATION ESTIMATED AT APPROXIMATELY 5 WEEKS 6 DAYS. CLOSE FOLLOW-UP AND CORRELATION WITH SERIAL BETA-HCGS IS REQUIRED.
--- NOTE | 2017-05-22 16:09 | ED ---
[place] Thomas, scribed for Jose Perry MD on 05/22/17 at 1325 . - HPI Summary HPI Summary: The patient is a 6-week 21 year old female complaining of vaginal bleeding. This is the patients first and her last menstrual period was in early April. The patient additionally complains of cramping earlier in the week. The patient denies dysuria. G1,P0. - History of Current Complaint Chief Complaint: EDOBProblems Stated Complaint: VAGINAL BLEEDING/6 WKS BLEEDING Time Seen by Provider: 05/22/17 12:57 Hx Obtained From: Patient Chief Complaint: Vaginal Bleeding Onset/Duration: Started Hours Ago Severity: Mild Current Severity: Mild Pain Intensity: 5 Associated Signs and Symptoms: Positive: Vaginal Bleeding or Discharge. Negative: Urinary Symptoms - Allergies/Home Medications Allergies/Adverse Reactions: Allergies Allergy/AdvReac Type Severity Reaction Status Date / Time No Known Allergies Allergy Verified 12/01/16 14:31 PMH/Surg Hx/FS Hx/Imm Hx Endocrine/Hematology History: Denies: Hx Anticoagulant Therapy, Hx Blood Disorders Respiratory History: Denies: Hx Asthma History: Reports: Hx Kidney Infection, Other Problems/Disorders - HX PCOS Musculoskeletal History: Reports: Other Musculoskeletal History - Lt foot fx Neurological History: Reports: Other Neuro Impairments/Disorders - 5 concussions Psychiatric History: Reports: Hx Anxiety - no meds, has counselor - does not feel she's interactive, Hx Depression - Surgical History Surgery Procedure, Year, and Place: none Infectious Disease History: No Infectious Disease History: Denies: Traveled Outside the [place] in Last 30 Days - Family History Known Family History: Positive: Unknown - Patient is adopted - Social History Alcohol Use: None Hx Substance Use: Yes Substance Use Type: Reports: Marijuana Hx Tobacco Use: Yes Smoking Status (MU): Current Some Day Smoker Review of Systems Negative: Epistaxis Positive: other - vaginal bleeding. Negative: dysuria All Other Systems Reviewed And Are Negative: Yes Physical Exam - Summary Physical Exam Summary: Appearance: The patient is well-nourished in no acute distress and in no acute pain. Skin: The skin is warm and dry and skin color reflects adequate perfusion. HEENT: ~The head is normocephalic and atraumatic. The pupils are equal and reactive. The conjunctivae are clear and without drainage. ~Nares are patent and without drainage. ~Mouth reveals moist mucous membranes and the throat is without erythema and exudate. ~The external ears are intact. The ear canals are patent and without drainage. The tympanic membranes are intact. Neck: the neck is supple with full range of motion and non-tender. There are no carotid bruits. ~There is no neck vein distension. Respiratory: Chest is non-tender. ~Lungs are clear to auscultation and breath sounds are symmetrical and equal. Cardiovascular: Heart is regular rate and rhythm. ~There is no murmur or rub auscultated. ~~There is no peripheral edema and pulses are symmetrical and equal. Abdomen: The abdomen is soft and non-tender. ~There are normal bowel sounds heard in all four quadrants and there is no organomegaly palpated. Musculoskeletal: There is no back tenderness noted. ~Extremities are non-tender with full range of motion. ~There is good capillary refill. ~There is no peripheral edema or calf tenderness elicited. Neurological: Patient is alert and oriented to person, place and time. ~The patient has symmetrical motor strength in all four extremities. ~Cranial nerves are grossly intact. Deep tendon reflexes are symmetrical and equal in all four extremities. Psychiatric: The patient has an appropriate affect and does not exhibit any anxiety or depression. - Physical Exam Triage Information Reviewed: Yes Vital Signs Reviewed: Yes Diagnostics - Vital Signs Vital Signs Temp Pulse Resp BP Pulse Ox 05/22/17 11:34 97.8 F 106 16 131/61 100 - Laboratory Lab Results: Lab Results 05/22/17 05/22/17 05/22/17 Range/Units 12:40 12:40 12:42 WBC 12.5 H (3.5-10.8) 10^3/ul RBC 4.26 (4.0-5.4) 10^6/ul Hgb 12.8 (12.0-16.0) g/dl Hct 38 (35-47) % MCV 89 (80-97) fL MCH 30 (27-31) pg MCHC 34 (31-36) g/dl RDW 13 (10.5-15) % Plt Count 182 (150-450) 10^3/ul MPV 10 (7.4-10.4) um3 Neut % (Auto) 70.2 (38-83) % Lymph % (Auto) 22.0 L (25-47) % [place] % (Auto) 6.5 (1-9) % Eos % (Auto) 0.9 (0-6) % Baso % (Auto) 0.4 (0-2) % Absolute Neuts (auto) 8.8 H (1.5-7.7) 10^3/ul Absolute Lymphs (auto) 2.8 (1.0-4.8) 10^3/ul Absolute Monos (auto) 0.8 (0-0.8) 10^3/ul Absolute Eos (auto) 0.1 (0-0.6) 10^3/ul Absolute Basos (auto) 0 (0-0.2) 10^3/ul Absolute Nucleated RBC 0 10^3/ul Nucleated RBC % 0 INR (Anticoag Therapy) 0.95 (0.77-1.02) APTT 32.1 (26.0-36.3) seconds Urine Color Yellow Urine Appearance Clear Urine pH 6.0 (5-9) Ur Specific [place] 1.019 (1.010-1.030) Urine Protein Negative (Negative) Urine Ketones 1+ H (Negative) Urine Blood Negative (Negative) Urine Nitrate Negative (Negative) Urine Bilirubin Negative (Negative) Urine Urobilinogen Negative (Negative) Ur Leukocyte Esterase Negative (Negative) Urine Glucose Negative (Negative) Urine Ascorbic Acid * H (Negative) Result Diagrams: 05/22/17 12:40 05/22/17 12:40 Lab Statement: Any lab studies that have been ordered have been reviewed, and results considered in the medical decision making process. - Additional Comments Diagnostic Additional Comments: Transvaginal ultrasound Interpreted by radiologist. Impression: EARLY INTRAUTERINE GESTATION ESTIMATED AT APPROXIMATELY 5 WEEKS 6 DAYS. CLOSE FOLLOW-UP AND CORRELATION WITH SERIAL BETA-HCGS IS REQUIRED. Dr. Perry has reviewed this report. Course/Dx - Course Course Of Treatment: Ms. Jerez saw some blood today and has been cramping intermittently for 2 days. She denies any other symptoms such as dysuria although she admits she hasn't been drinking a lot of fluids. She had an equivocal U/S about a week ago when she found out she was . Today she clearly has a viable IUP on U/S and a negative U/A. I advised her to drink a lot of fluids and to keep her staying machine operator appointment tomorrow. - Diagnoses Provider Diagnoses: Vaginal bleeding affecting early Discharge - Discharge Plan Condition: Stable Disposition: HOME Patient Education Materials: First Trimester Vaginal Bleed (ED) Referrals: Christiano Khan MD [Medical Doctor] - 05/23/17 Additional Instructions: Keep your appointment with Dr. Khan tomorrow. Drink lots of fluids. Return to the emergency department for any new or worsening symptoms. The documentation as recorded by the [place] [facility] Thomas accurately reflects the service I personally performed and the decisions made by me, Jose Perry MD.
[2017-05-22 16:15] VITALS: BP 106/54
== END 2017-05-22 16:14 | disposition home or self-care (01) ==
LOC: ED 11:32
DX: O20.9 Hemorrhage in early pregnancy, unspecified (principal); O99.331 Smoking (tobacco) complicating pregnancy, first trimester; Z3A.01 Less than 8 weeks gestation of pregnancy
CPT/HCPCS: 36415; 76817; 80053; 81003; 83605; 84702; 85025; 85610; 85730; 86850; 86900; 86901; 99282

== ENCOUNTER 2017-07-11 15:13 | Emergency (ER) | payer OTHER ==
[2017-07-11] MEDS ORDERED: Metoclopramide IV* 5 MG/ML 2 ML VIAL IV ONE (18:46)
[2017-07-11] MEDS ORDERED: NS 0.9% 1000 ML* 1,000 ML IV ONE (18:57)
[2017-07-11 19:02] LABS: ABS Basophils 0.2 10^3/ul (0-0.2); ABS Eosinophils 0.1 10^3/ul (0-0.6); ABS Lymphocytes 2.8 10^3/ul (1.0-4.8); ABS Monocytes 0.8 10^3/ul (0-0.8); ABS Neutrophils 8.4 10^3/ul (1.5-7.7); ABS Nucleated RBC 0 10^3/ul; Eosinophil % 1.2 % (0-6); Hematocrit 34 % (35-47); Hemoglobin 11.5 g/dl (12.0-16.0); Lymphocyte % 22.8 % (25-47); Mean Corpuscular HGB Conc 34 g/dl (31-36); Mean Corpuscular Hemoglobin 31 pg (27-31); Mean Corpuscular Volume 89 fL (80-97); Nucleated Red Blood Cells % 0; Platelet Count 173 10^3/ul (150-450); Red Blood Count 3.76 10^6/ul (4.0-5.4); Red Cell Distribution Width 13 % (10.5-15); White Blood Count 12.3 10^3/ul (3.5-10.8)
--- NOTE | 2017-07-11 19:03 | ED ---
GI/ HPI - HPI Summary HPI Summary: a p and 13 week patient here with nausea vomiting and diarrhea since Monday. Reports this started as "hunger pains" and when she tried to eat she started vomiting. States she's not been able to hold down anything including water and Cheerios since Monday. Has episodes or she feels hot alternating with cold and occasionally is dizzy. Denies vaginal bleeding, spotting, contractions. She is followed by Dr. Kelly with her [facility]. No known sick contacts. Immunizations are up-to-date. She has not been taking a vitamin as it makes her nauseous. She is currently not working and resides at a safe house. Denies alcohol, tobacco and drugs. She is otherwise healthy with no previous abdominal surgeries. No history of kidney stones. This does not feel the same. Denies dysuria, urinary frequency, flank pain, hematuria. - History of Current Complaint Chief Complaint: EDNauseaVomitDiarrh Time Seen by Provider: 07/11/17 18:10 Stated Complaint: VOMITING/FEVER Hx Obtained From: Patient Hx Last Menstrual Period: 04/07/17 Pain Intensity: 0 - Allergy/Home Medications Allergies/Adverse Reactions: Allergies Allergy/AdvReac Type Severity Reaction Status Date / Time No Known Allergies Allergy Verified 07/11/17 15:20 Home Medications: Home Medications Tablet 1 tab PO DAILY 07/11/17 [History Confirmed 07/11/17] PMH/Surg Hx/FS Hx/Imm Hx Previously Healthy: Yes Endocrine/Hematology History: Denies: Hx Anticoagulant Therapy, Hx Blood Disorders, Hx Diabetes, Hx Thyroid Disease, Autoimmune Disease Respiratory History: Denies: Hx Asthma GI History: Denies: Hx Gall Bladder Disease, Hx Gastroesophageal Reflux Disease, Hx Hiatal Hernia, Hx Irritable Bowel, Hx Ulcer History: Reports: Hx Kidney Infection, Hx Kidney Stones, Other Problems/ Disorders - HX PCOS Musculoskeletal History: Reports: Other Musculoskeletal History - Lt foot fx Neurological History: Reports: Other Neuro Impairments/Disorders - 5 concussions Psychiatric History: Reports: Hx Anxiety - no meds, has counselor - does not feel she's interactive, Hx Depression - Surgical History Surgery Procedure, Year, and Place: none - Immunization History Immunizations Up to Date: Yes Infectious Disease History: No Infectious Disease History: Denies: Traveled Outside the [place] in Last 30 Days - Family History Known Family History: Positive: Unknown - Patient is adopted - Social History Occupation: Unemployed - plans on starting work next week Lives: Assisted - safe house Alcohol Use: None Hx Substance Use: No Substance Use Type: Reports: None Hx Tobacco Use: Yes - not currently Smoking Status (MU): Former Smoker Review of Systems Positive: Fever - subjective, Chills - subjective, Fatigue Eyes: Negative Positive: Ear Ache - right side. Negative: Dental Pain, Sore Throat, Nasal Discharge Cardiovascular: Negative Respiratory: Negative Positive: Abdominal Pain - right lower quadrant, Vomiting, Diarrhea, Nausea Genitourinary: Negative Musculoskeletal: Negative Skin: Negative Positive: Weakness - generalized weakness and fatigue Psychological: Normal All Other Systems Reviewed And Are Negative: Yes Physical Exam Triage Information Reviewed: Yes Vital Signs On Initial Exam: Initial Vitals Temp Pulse Resp BP Pulse Ox 99.0 F 73 14 106/50 98 07/11/17 15:16 07/11/17 15:16 07/11/17 15:16 07/11/17 15:16 07/11/17 15:16 Vital Signs Reviewed: Yes Appearance: Positive: No Pain Distress - Appears fatigued however color is good , Well-Nourished Skin: Positive: Warm, Skin Color Reflects Adequate Perfusion, Dry Head/Face: Positive: Normal Head/Face Inspection Eyes: Positive: Normal, EOMI, Conjunctiva Clear - Anicteric sclera ENT: Positive: Normal ENT inspection, Hearing grossly normal, Pharynx normal - [place] moist, TMs normal, Uvula midline. Negative: Nasal congestion, Nasal drainage, TM bulging, TM dull, TM red, Tonsillar swelling, Tonsillar exudate, Trismus, Muffled voice, Hoarse voice, Sinus tenderness Neck: Positive: Supple, Nontender, No Lymphadenopathy Respiratory/Lung Sounds: Positive: Clear to Auscultation, Breath Sounds Present. Negative: Rales, Rhonchi, Wheezes Cardiovascular: Positive: Normal, RRR, S1, S2. Negative: Murmur, Rub Abdomen Description: Positive: No Organomegaly, Soft, Other: - Mild right lower quadrant tenderness to palpationno rebounding, negative so as, negative obturator. Negative: CVA Tenderness (R), CVA Tenderness (L), Distended, Guarding Bowel Sounds: Positive: Present Pelvic Exam: Positive: Other - Deferred Musculoskeletal: Positive: Normal, Strength/ROM Intact Neurological: Positive: Normal, Sensory/Motor Intact, Alert, Oriented to Person Place, Time, CN Intact II-III Psychiatric: Positive: Normal - Concerned but calm and cooperative Diagnostics - Vital Signs Vital Signs Temp Pulse Resp BP Pulse Ox 07/11/17 18:00 70 104/51 97 07/11/17 17:30 65 106/47 96 07/11/17 17:22 75 100/44 98 07/11/17 17:21 70 99 07/11/17 15:16 99.0 F 73 14 106/50 98 - Laboratory Result Diagrams: 07/11/17 18:51 07/11/17 18:51 Lab Statement: Any lab studies that have been ordered have been reviewed, and results considered in the medical decision making process. 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 BP improved after 1 Liter NS Discharge - Discharge Plan Referrals: No Primary Care Phys,NOPCP [Primary Care Provider] -
[2017-07-11 19:19] LABS: EGFR Non-African American 139.5 (>60)
--- NOTE | 2017-07-11 19:34 | RAD ---
INDICATION: RIGHT lower quadrant pain. 13 weeks . COMPARISON: March 24, 2016 CT. TECHNIQUE: Ultrasound of the right lower quadrant. Multiple cine loops obtained. REPORT AND IMPRESSION: Body habitus limits acoustic window. Only peristalsing bowel loops visualized at the RIGHT lower quadrant. Nondiagnostic exam due to nonvisualization of the appendix. No free fluid or lymphadenopathy visualized.
[2017-07-11 20:35] LABS: Urine Appearance Clear; Urine Blood Negative (Negative); Urine Color Yellow; Urine Ketones 2+ (Negative); Urine Protein Negative (Negative); Urine Specific Gravity 1.026 (1.010-1.030); Urine Urobilinogen Negative (Negative)
[2017-07-11] MEDS ORDERED: Potassium Chlor TAB* 20 MEQ TAB.ER PO ONE (21:11)
[2017-07-11 21:48] VITALS: BP 111/64
[2017-07-12] MEDS ORDERED: Magnesium Oxide TAB* 400 MG PO ONE (21:11)
== END 2017-07-11 21:53 | disposition home or self-care (01) ==
LOC: ED 15:13
DX: O26.91 Pregnancy related conditions, unspecified, first trimester (principal); Z3A.13 13 weeks gestation of pregnancy; R11.2 Nausea with vomiting, unspecified; R42 Dizziness and giddiness; Z87.891 Personal history of nicotine dependence; H92.01 Otalgia, right ear; R50.9 Fever, unspecified; R53.1 Weakness
CPT/HCPCS: 36415; 76705; 80053; 81003; 83605; 83690; 83735; 84443; 85025; 86140; 87502; 93005; 96361; 96374; 99284; A9270-GY; J2765

== ENCOUNTER 2017-07-18 17:05 | Emergency (ER) | payer SELFPAY ==
[2017-07-18 17:16] VITALS: BP 98/62
--- NOTE | 2017-07-18 18:14 | UC ---
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 First noticed 3d ago. She had a small blister develop over the knuckle with some localized redness and swelling. The blister popped and swelling and redness resolved. No known injury. No fever, n/v. No pain in the joint. - History of Current Complaint Hx Last Menstrual Period: 04/07/17 Pain Intensity: 3 <Greg Price - Last Filed: 07/18/17 18:09> <Mariam Grey - Last Filed: 07/18/17 18:54> - History of Current Complaint Chief Complaint: UCUpperExtremity Stated Complaint: R HAND FINGER INJURY - Allergies/Home Medications Allergies/Adverse Reactions: Allergies Allergy/AdvReac Type Severity Reaction Status Date / Time No Known Allergies Allergy Verified 07/18/17 17:16 PMH/Surg Hx/FS Hx/Imm Hx Previously Healthy: Yes Other History Of: Negative For: Anticoagulant Therapy - Surgical History Surgical History: Yes Surgery Procedure, Year, and Place: wisdom teeth extraction, t&a - Family History Known Family History: Positive: Unknown - Patient is adopted - Social History Alcohol Use: None Substance Use Type: None Smoking Status (MU): Former Smoker <Greg Price - Last Filed: 07/18/17 18:09> Review of Systems Constitutional: Negative Skin: Negative Eyes: Negative ENT: Negative Respiratory: Negative Cardiovascular: Negative Gastrointestinal: Negative Genitourinary: Negative Motor: Negative Neurovascular: Negative Musculoskeletal: Arthralgia Neurological: Negative Psychological: Negative Is Patient Immunocompromised?: No All Other Systems Reviewed And Are Negative: Yes <Greg Price - Last Filed: 07/18/17 18:09> Physical Exam Triage Information Reviewed: Yes Appearance: Well-Appearing Vital Signs: Initial Vital Signs Temp 98.8 F 07/18/17 17:12 Pulse 81 07/18/17 17:12 Resp 18 07/18/17 17:12 BP 98/62 07/18/17 17:12 Pulse Ox 100 07/18/17 17:12 Vital Signs Reviewed: Yes ENT Exam: Normal Neck exam: Normal Respiratory Exam: Normal Respiratory: Positive: Lungs clear Cardiovascular Exam: Normal Cardiovascular: Positive: RRR Abdominal Exam: Normal Musculoskeletal Exam: Normal Musculoskeletal: Positive: Other: - small effusion of R 3rd PIPJ, no erythema, FROM, non TTP Neurological Exam: Normal Psychological Exam: Normal Skin Exam: Normal <Greg Price - Last Filed: 07/18/17 18:09> Vital Signs: Initial Vital Signs Temp 98.8 F 07/18/17 17:12 Pulse 81 07/18/17 17:12 Resp 18 07/18/17 17:12 BP 98/62 07/18/17 17:12 Pulse Ox 100 07/18/17 17:12 <Mariam Grey - Last Filed: 07/18/17 18:54> Upper Extremity Course/Dx - Course Course Of Treatment: Otherwise healthy 21 yo female with recent effusion and erythema of R 3rd PIPJ which has resolved spontaneously without systemic symptoms. No further intervention required. - Differential Dx/Diagnosis Differential Diagnosis/HQI/PQRI: Bursitis, Fracture (Closed), Hematoma, Strain, Sprain Provider Diagnoses: 1. PIPJ effusion - resolving injury or superficial infection <Greg Price - Last Filed: 07/18/17 18:09> Discharge - Sign-Out/Discharge Documenting (check all that apply): Discharge - Billing Disposition and Condition Condition: STABLE Disposition: HOME <Greg Price - Last Filed: 07/18/17 18:09> - Billing Disposition and Condition Condition: STABLE Disposition: HOME <Mariam Grey - Last Filed: 07/18/17 18:54> - Discharge Plan Condition: Stable Disposition: HOME Patient Education Materials: Finger Sprain (ED) Forms: *Work Release Referrals: No Primary Care Phys,NOPCP [Primary Care Provider] - Additional Instructions: Instructions: 1. No further treatment needed, you may resume usual activities Attestation Statement User Type: Provider - I was available for consult. This patient was seen by the TIMOTHY. The patient was not presented to, seen by, or examined by me. -Ljj <Mariam Grey - Last Filed: 07/18/17 18:54>
== END 2017-07-18 18:13 | disposition home or self-care (01) ==
LOC: UCEAST 17:05
DX: M25.441 Effusion, right hand (principal); Z87.891 Personal history of nicotine dependence
CPT/HCPCS: 99211; G0463

== ENCOUNTER 2017-08-07 10:29 | Inpatient (IN) | payer OTHER ==
[2017-08-07] MEDS ORDERED: Ondansetron ODT TAB* 4 MG ONE (11:14)
[2017-08-07] MEDS ORDERED: NS 0.9% 1000 ML* 2,000 ML IV ONE ×2 (11:14→15:41)
[2017-08-07] MEDS ORDERED: Ondansetron ODT TAB* 4 MG PO ONE (11:14)
[2017-08-07 11:47] LABS: ABS Basophils 0.1 10^3/ul (0-0.2); ABS Eosinophils 0.2 10^3/ul (0-0.6); ABS Lymphocytes 1.9 10^3/ul (1.0-4.8); ABS Monocytes 0.5 10^3/ul (0-0.8); ABS Neutrophils 8.3 10^3/ul (1.5-7.7); ABS Nucleated RBC 0 10^3/ul; Eosinophil % 1.7 % (0-6); Hematocrit 33 % (35-47); Hemoglobin 11.5 g/dl (12.0-16.0); Lymphocyte % 17.7 % (25-47); Mean Corpuscular HGB Conc 35 g/dl (31-36); Mean Corpuscular Hemoglobin 31 pg (27-31); Mean Corpuscular Volume 90 fL (80-97); Mean Platelet Volume 10.5 um3 (7.4-10.4); Nucleated Red Blood Cells % 0; Platelet Count 160 10^3/ul (150-450); Red Blood Count 3.66 10^6/ul (4.0-5.4); Red Cell Distribution Width 13 % (10.5-15); White Blood Count 10.9 10^3/ul (3.5-10.8)
[2017-08-07 11:55] LABS: INR 0.9 (0.77-1.02)
[2017-08-07 12:02] LABS: EGFR Non-African American 152.2 (>60)
--- NOTE | 2017-08-07 13:34 | RAD ---
INDICATION: Right lower quadrant pain. COMPARISON: There are no prior studies available for comparison. TECHNIQUE: Multiple real-time images of the right lower quadrant were obtained using a graded compression technique. FINDINGS: There is a small amount of free intraperitoneal fluid adjacent to the right ovary. No localized fluid collection is seen. The appendix was not visualized limiting the study. IMPRESSION: THE APPENDIX WAS NOT VISUALIZED LIMITING THE STUDY.
--- NOTE | 2017-08-07 13:37 | RAD ---
INDICATION: Lower abdominal pain right greater than left, , history of kidney stones. COMPARISON: Correlation is made with a prior CT of the abdomen and pelvis from March 24, 2016. TECHNIQUE: Multiple real-time images of the kidneys were obtained. FINDINGS: The kidneys are normal in size shape and echogenicity. The right kidney measured 10.8 x 3.9 x 5.0 cm and the left kidney measured 10.8 x 5.0 x 5.1 cm. There are small echogenic foci measuring 3 to 4 mm in the upper pole of the right kidney and lower pole of the left kidney possibly representing small calculi. There is mild right hydronephrosis. There are bilateral ureteral vesicle jets. IMPRESSION: 1. MILD RIGHT HYDRONEPHROSIS. 2. POSSIBLE SMALL BILATERAL RENAL CALCULI.
--- NOTE | 2017-08-07 13:44 | RAD ---
INDICATION: Pelvic pain and bleeding Last menstrual period: Unknown Comparison: Pelvic ultrasound dated May 22, 2017 that yielded measurements corresponding to 5 weeks and 1 day gestation. Expected date of delivery as derived from the prior ultrasound is January 14, 2018 Multiple transabdominal real time images of the gravid uterus were obtained. This exam demonstrates a single intrauterine in the breech presentation. heart and limb motion were noted. The heart rate was 153 beats per minute. The placenta was located Posterior. There is no placenta previa. The amniotic fluid volume appeared to be within normal limits measuring 13.58 cm. The cervix is closed measuring 5 cm in length. Biparietal diameter (cm) 3.82 which corresponds to a gestational age of 17 weeks and 5 days. Head circumference (cm) 13.46 which corresponds to a gestational age of 17 weeks and 0 days. abdominal circumference(cm) 11.22 which corresponds to a gestational age of 7 weeks and 1. femur length (cm) 2.28 which corresponds to a gestational age of 17 weeks and 2 days. The composite estimated gestational age was 17 weeks and 2 days. The estimated weight at this time is 176 grams +/- 26 grams. IMPRESSION: Normal single intrauterine gestation in the breech position with composite growth parameters yielding an average gestational age of 7 weeks and 2 days.
[2017-08-07 13:54] LABS: Urine Appearance Clear; Urine Blood 1+ (Negative); Urine Color Yellow; Urine Ketones 1+ (Negative); Urine Protein Negative (Negative); Urine Red Blood Cell 3+(>10/hpf) (Absent); Urine Specific Gravity 1.013 (1.010-1.030); Urine Urobilinogen Negative (Negative); Urine White Blood Cell Trace(0-5/hpf) (Absent)
[2017-08-07] MEDS ORDERED: Morphine INJ* 10 MG/ML 1 ML CARPUJECT IV ONE ×3 (14:19→20:05)
[2017-08-07] MEDS ORDERED: Morphine VIAL* 4 MG/ML VIAL (1 ml vial) IV ONE ×2 (14:23→14:27)
[2017-08-07] MEDS: RHO D Immune Globulin (HUMAN)* 300 MCG = 1,500 I.U. INJ IM ONE ×2 (15:25→17:18)
[2017-08-07] MEDS ORDERED: NS 0.9% 1000 ML* 1,000 ML IV ONE (17:34)
--- NOTE | 2017-08-07 20:42 | RAD ---
INDICATION: Worsening right lower quadrant pain in a female. COMPARISON: Same day ultrasound of the right lower quadrant there was unable to visualize the appendix TECHNIQUE: Noncontrast MR imaging of the abdomen was acquired with axial T1, axial T2, coronal T1, coronal T2 and sagittal T2 imaging. No contrast was administered. FINDINGS: The appendix is most likely identified in the right lower quadrant just anterolateral to the right psoas muscle measuring 5 mm in diameter (axial image 23 series 7). On the same image there are trace foci of pericecal fluid. There is mild to moderate right-sided hydronephrosis. The gravid uterus contains a single intrauterine gestation. IMPRESSION: 1. Although there is trace fluid adjacent to the cecum and the appendix, the appendix is otherwise normal in appearance and normal in size. Acute appendicitis appears to be unlikely from an imaging perspective. 2. Mild to moderate right-sided hydronephrosis.
[2017-08-07 20:51] LABS: Urine Appearance Cloudy; Urine Blood Negative (Negative); Urine Color Yellow; Urine Ketones 2+ (Negative); Urine Protein Negative (Negative); Urine Specific Gravity 1.013 (1.010-1.030); Urine Urobilinogen Negative (Negative)
[2017-08-07] MEDS ORDERED: oxyCODONE TAB* 5 MG TAB PO ONE (21:58)
[2017-08-07] MEDS ORDERED: HYDROmorphone INJ* 2 MG/ML CARPUJECT SYRINGE IV SLOW PU PRN (23:17)
[2017-08-07] MEDS ORDERED: Ondansetron INJ* 2 MG/ML VIAL IV PRN (23:17)
--- NOTE | 2017-08-07 23:23 | CONSULT ---
Consult Consult: CITY DISPATCH SUPERVISOR Consult HPI: 21yo at 17 wks EGLety presents with worsening flank and especially RLQ since Monday. Unable to sleep over the weekend. Intermittent nausea with the pain. Pt has a history significant for kidney stones (left and bilateral) two previous times over the last couple years. Both times, admitted for pain mgmt. Last time, was in the hospital for 2 weeks. Never had surgery done. Pain today is consistent with prior admissions. ROS Gen: +nausea, no fever/chills CV: neg Resp: neg GI: nausea, difficulty with bowel movements due to pain from bearing down : noted a drop of blood on underwear previously this AM Neuro: neg Psych: neg PMH: kidney stones PSH: tonsils Soc: no tob/etoh/drugs All: NKDA Meds: PNV OB: , early SAB x2 VS: normal, afebrile Chest: CTA bilat CV: RRR Abd: gravid, top of fundus nontender, tender in entire lower abd RLQ > LLQ, bladder is tender Back: ++ CVAT bilateral Laboratory Tests 08/07/17 08/07/17 08/07/17 11:30 11:30 11:30 WBC 10.9 H RBC 3.66 L Hgb 11.5 L Hct 33 L MCV 90 MCH 31 MCHC 35 RDW 13 Plt Count 160 MPV 10.5 H Neut % (Auto) 75.8 Lymph % (Auto) 17.7 L [place] % (Auto) 4.2 Eos % (Auto) 1.7 Baso % (Auto) 0.6 Absolute Neuts (auto) 8.3 H Absolute Lymphs (auto) 1.9 Absolute Monos (auto) 0.5 Absolute Eos (auto) 0.2 Absolute Basos (auto) 0.1 Absolute Nucleated RBC 0 Nucleated RBC % 0 INR (Anticoag Therapy) 0.90 APTT 27.5 Sodium 136 L Potassium 3.5 Chloride 107 Carbon Dioxide 24 Anion Gap 5 BUN 5 L Creatinine 0.51 Est GFR ( Amer) 195.8 Est GFR (Non-Af Amer) 152.2 BUN/Creatinine Ratio 9.8 Glucose 78 Lactic Acid Calcium 8.9 Total Bilirubin 0.50 AST 10 L ALT 7 Alkaline Phosphatase 47 C-Reactive Protein 4.70 Total Protein 6.1 L Albumin 3.7 Globulin 2.4 Albumin/Globulin Ratio 1.5 Lipase < 10 L Urine Color Urine Appearance Urine pH Ur Specific [place] Urine Protein Urine Ketones Urine Blood Urine Nitrate Urine Bilirubin Urine Urobilinogen Ur Leukocyte Esterase Urine WBC (Auto) Urine RBC (Auto) Ur Squamous Epith Cells Urine Bacteria Urine Glucose Blood Type Antibody Screen 08/07/17 08/07/17 08/07/17 11:30 11:30 13:30 WBC RBC Hgb Hct MCV MCH MCHC RDW Plt Count MPV Neut % (Auto) Lymph % (Auto) [place] % (Auto) Eos % (Auto) Baso % (Auto) Absolute Neuts (auto) Absolute Lymphs (auto) Absolute Monos (auto) Absolute Eos (auto) Absolute Basos (auto) Absolute Nucleated RBC Nucleated RBC % INR (Anticoag Therapy) APTT Sodium Potassium Chloride Carbon Dioxide Anion Gap BUN Creatinine Est GFR ( Amer) Est GFR (Non-Af Amer) BUN/Creatinine Ratio Glucose Lactic Acid 0.7 Calcium Total Bilirubin AST ALT Alkaline Phosphatase C-Reactive Protein Total Protein Albumin Globulin Albumin/Globulin Ratio Lipase Urine Color Yellow Urine Appearance Clear Urine pH 7.0 Ur Specific [place] 1.013 Urine Protein Negative Urine Ketones 1+ A Urine Blood 1+ A Urine Nitrate Negative Urine Bilirubin Negative Urine Urobilinogen Negative Ur Leukocyte Esterase Negative Urine WBC (Auto) Trace(0-5/hpf) Urine RBC (Auto) 3+(>10/hpf) A Ur Squamous Epith Cells Present A Urine Bacteria Absent Urine Glucose Negative Blood Type O Negative Antibody Screen Negative 08/07/17 20:41 WBC RBC Hgb Hct MCV MCH MCHC RDW Plt Count MPV Neut % (Auto) Lymph % (Auto) [place] % (Auto) Eos % (Auto) Baso % (Auto) Absolute Neuts (auto) Absolute Lymphs (auto) Absolute Monos (auto) Absolute Eos (auto) Absolute Basos (auto) Absolute Nucleated RBC Nucleated RBC % INR (Anticoag Therapy) APTT Sodium Potassium Chloride Carbon Dioxide Anion Gap BUN Creatinine Est GFR ( Amer) Est GFR (Non-Af Amer) BUN/Creatinine Ratio Glucose Lactic Acid Calcium Total Bilirubin AST ALT Alkaline Phosphatase C-Reactive Protein Total Protein Albumin Globulin Albumin/Globulin Ratio Lipase Urine Color Yellow Urine Appearance Cloudy Urine pH 5.0 Ur Specific [place] 1.013 Urine Protein Negative Urine Ketones 2+ A Urine Blood Negative Urine Nitrate Negative Urine Bilirubin Negative Urine Urobilinogen Negative Ur Leukocyte Esterase Negative Urine WBC (Auto) Urine RBC (Auto) Ur Squamous Epith Cells Urine Bacteria Urine Glucose Negative Blood Type Antibody Screen US: normal 17 wk IUP, no abnormalities seen + renal calculi bilateral, +urine jets bilat Appy not visualized. MRI: Appendix appears unremarkable other than some surrounding fluid Imp: 21yo at 17 wks EGA with history of 2 prior kidney stone episodes and similar symptoms again now. Exam without any evidence of issues, and realistically there are no complications that result in this pattern of pain. Suspect the single spot of blood was likely from urine. Clean catch was without blood but also 8 hours later. Rec: Hospitalist service to admit for pain mgmt. Discussed with them at length. Only OB care recommended is daily heart tones. Recommend pain mgmt with acetaminophen and narcotics as needed and as it would be with a non patient. Since it has worked best for her in the past, Toradol at 17 weeks is reasonable. Would give 15-30mg IV Q6hrs prn. Recommend against continued NSAIDs after admission since it is not advised in later . Please do not hesitate to contact OB instrumentation tech if any questions during admission.
--- NOTE | 2017-08-07 23:24 | ED ---
Natalee Castle Nilda, scribed for Darinel Mariano MD on 08/07/17 at 1114 . Abdominal Pain/Female - HPI Summary HPI Summary: This patient is a 21 year old F presenting to [facility] with a chief complaint of constant severe lower-abd cramping with mild spotting for the past 4 days. Pt states pain was so severe 3 days ago that she could not ambulate, or lay on her back or her side without pain. Vaginal spotting occurred this morning. The patient rates the pain 8/10 in severity. Symptoms aggravated by movement and alleviated by nothing. Patient reports diarrhea (green, 4 days ago), N/V ( vomiting water, no food). Patient denies loss of appetite, decreased fluid intake, fever, chills, urinary burning or frequency, SOB, rhinorrhea, sore throat, and abnormal vaginal discharge. Pt states shes 17 weeks ( first , OB is Dr. Khan). Jan 14, 2018 is pts due date. PMHx renal calculi (hospitalized 3x, last was 6 months ago). No PSHx abd. Pt states symptoms (pain with ambulation) is similar to previous episode of renal calculi. - History of Current Complaint Chief Complaint: EDOBProblems Stated Complaint: CRAMPING/17 WEEKS PREG Hx Obtained From: Patient Hx Last Menstrual Period: 04/07/17 ?: Yes - 17 weeks Onset/Duration: Sudden Onset, Lasting Days, Still Present Timing: Constant Severity Currently: Severe Pain Intensity: 8 Pain Scale Used: 0-10 Numeric Location: Discrete At: LUQ, Discrete At: LLQ Radiates: No Character: Cramping Aggravating Factor(s): Movement Alleviating Factor(s): Nothing Associated Signs and Symptoms: Positive: Other: - vaginal spotting, diarrhea ( green, 4 days ago), N/V (vomiting water, no food). Patient denies loss of appetite, decreased fluid intake, fever, chills, urinary burning or frequency, SOB, rhinorrhea, sore throat, and abnormal vaginal discharge. Allergies/Adverse Reactions: Allergies Allergy/AdvReac Type Severity Reaction Status Date / Time No Known Allergies Allergy Verified 08/07/17 10:34 Home Medications: Home Medications Vit No.129/Iron/Folic [ One Daily] 1 tab PO DAILY 08/07/17 [ History Confirmed 08/07/17] PMH/Surg Hx/FS Hx/Imm Hx Endocrine/Hematology History: Denies: Hx Anticoagulant Therapy, Hx Blood Disorders, Hx Diabetes, Hx Thyroid Disease Respiratory History: Denies: Hx Asthma GI History: Denies: Hx Gall Bladder Disease, Hx Gastroesophageal Reflux Disease, Hx Hiatal Hernia, Hx Irritable Bowel, Hx Ulcer History: Reports: Hx Kidney Infection, Hx Kidney Stones, Other Problems/ Disorders - HX PCOS Musculoskeletal History: Reports: Other Musculoskeletal History - Lt foot fx Neurological History: Reports: Other Neuro Impairments/Disorders - 5 concussions Psychiatric History: Reports: Hx Anxiety - no meds, has counselor - does not feel she's interactive, Hx Depression - Surgical History Surgery Procedure, Year, and Place: wisdom teeth extraction, t&a Infectious Disease History: No Infectious Disease History: Denies: Traveled Outside the [place] in Last 30 Days - Family History Known Family History: Positive: Unknown - Patient is adopted - Social History Alcohol Use: None Hx Substance Use: No Substance Use Type: Reports: None Hx Tobacco Use: Yes - not currently Smoking Status (MU): Former Smoker Review of Systems Negative: Fever, Chills Negative: Sore Throat, Nasal Discharge Negative: Shortness Of Breath Positive: Abdominal Pain, Vomiting, Diarrhea, Nausea, Other - negative loss of appetite, decreased fluid intake Genitourinary: Other - , mild vaginal spotting Negative: burning, discharge, frequency All Other Systems Reviewed And Are Negative: Yes Physical Exam - Summary Physical Exam Summary: General: well-appearing, no pain distress Skin: warm, color reflects adequate perfusion, dry Head: normal Eyes: EOMI, LUISA ENT: normal, Oral mucosa is moist Neck: supple, nontender Respiratory: CTA, breath sounds present Cardiovascular: RRR Abdomen: soft, Gravid uterus just below the umbilicus. Tender all lower abd ( most tender in RUQ and suprapubic region) Bowel sounds: present Musculoskeletal: normal, strength/ROM intact Neurological: normal, sensory/motor intact, A&O x3 Psychological: affect/mood appropriate Triage Information Reviewed: Yes Vital Signs On Initial Exam: Initial Vitals Temp Pulse Resp BP Pulse Ox 98.2 F 75 16 103/52 100 08/07/17 10:32 08/07/17 10:32 08/07/17 10:32 08/07/17 10:32 08/07/17 10:32 Vital Signs Reviewed: Yes Diagnostics - Vital Signs Vital Signs Temp Pulse Resp BP Pulse Ox 08/07/17 10:32 98.2 F 75 16 103/52 100 - Laboratory Lab Results: Lab Results 08/07/17 08/07/17 08/07/17 Range/Units 11:30 11:30 11:30 WBC 10.9 H (3.5-10.8) 10^3/ul RBC 3.66 L (4.0-5.4) 10^6/ul Hgb 11.5 L (12.0-16.0) g/dl Hct 33 L (35-47) % MCV 90 (80-97) fL MCH 31 (27-31) pg MCHC 35 (31-36) g/dl RDW 13 (10.5-15) % Plt Count 160 (150-450) 10^3/ul MPV 10.5 H (7.4-10.4) um3 Neut % (Auto) 75.8 (38-83) % Lymph % (Auto) 17.7 L (25-47) % [place] % (Auto) 4.2 (0-7) % Eos % (Auto) 1.7 (0-6) % Baso % (Auto) 0.6 (0-2) % Absolute Neuts (auto) 8.3 H (1.5-7.7) 10^3/ul Absolute Lymphs (auto) 1.9 (1.0-4.8) 10^3/ul Absolute Monos (auto) 0.5 (0-0.8) 10^3/ul Absolute Eos (auto) 0.2 (0-0.6) 10^3/ul Absolute Basos (auto) 0.1 (0-0.2) 10^3/ul Absolute Nucleated RBC 0 10^3/ul Nucleated RBC % 0 INR (Anticoag Therapy) 0.90 (0.77-1.02) APTT 27.5 (26.0-36.3) seconds Sodium 136 L (139-145) mmol/L Potassium 3.5 (3.5-5.0) mmol/L Chloride 107 (101-111) mmol/L Carbon Dioxide 24 (22-32) mmol/L Anion Gap 5 (2-11) mmol/L BUN 5 L (6-24) mg/dL Creatinine 0.51 (0.51-0.95) mg/dL Est GFR ( Amer) 195.8 (>60) Est GFR (Non-Af Amer) 152.2 (>60) BUN/Creatinine Ratio 9.8 (8-20) Glucose 78 (70-100) mg/dL Lactic Acid (0.5-2.0) mmol/L Calcium 8.9 (8.6-10.3) mg/dL Total Bilirubin 0.50 (0.2-1.0) mg/dL AST 10 L (13-39) U/L ALT 7 (7-52) U/L Alkaline Phosphatase 47 (34-104) U/L C-Reactive Protein 4.70 (< 5.00) mg/L Total Protein 6.1 L (6.4-8.9) g/dL Albumin 3.7 (3.2-5.2) g/dL Globulin 2.4 (2-4) g/dL Albumin/Globulin Ratio 1.5 (1-3) Lipase < 10 L (11.0-82.0) U/L Urine Color Urine Appearance Urine pH (5-9) Ur Specific [place] (1.010-1.030) Urine Protein (Negative) Urine Ketones (Negative) Urine Blood (Negative) Urine Nitrate (Negative) Urine Bilirubin (Negative) Urine Urobilinogen (Negative) Ur Leukocyte Esterase (Negative) Urine WBC (Auto) (Absent) Urine RBC (Auto) (Absent) Ur Squamous Epith Cells (Absent) Urine Bacteria (Absent) Urine Glucose (Negative) Blood Type Antibody Screen 08/07/17 08/07/17 08/07/17 Range/Units 11:30 11:30 13:30 WBC (3.5-10.8) 10^3/ul RBC (4.0-5.4) 10^6/ul Hgb (12.0-16.0) g/dl Hct (35-47) % MCV (80-97) fL MCH (27-31) pg MCHC (31-36) g/dl RDW (10.5-15) % Plt Count (150-450) 10^3/ul MPV (7.4-10.4) um3 Neut % (Auto) (38-83) % Lymph % (Auto) (25-47) % [place] % (Auto) (0-7) % Eos % (Auto) (0-6) % Baso % (Auto) (0-2) % Absolute Neuts (auto) (1.5-7.7) 10^3/ul Absolute Lymphs (auto) (1.0-4.8) 10^3/ul Absolute Monos (auto) (0-0.8) 10^3/ul Absolute Eos (auto) (0-0.6) 10^3/ul Absolute Basos (auto) (0-0.2) 10^3/ul Absolute Nucleated RBC 10^3/ul Nucleated RBC % INR (Anticoag Therapy) (0.77-1.02) APTT (26.0-36.3) seconds Sodium (139-145) mmol/L Potassium (3.5-5.0) mmol/L Chloride (101-111) mmol/L Carbon Dioxide (22-32) mmol/L Anion Gap (2-11) mmol/L BUN (6-24) mg/dL Creatinine (0.51-0.95) mg/dL Est GFR ( Amer) (>60) Est GFR (Non-Af Amer) (>60) BUN/Creatinine Ratio (8-20) Glucose (70-100) mg/dL Lactic Acid 0.7 (0.5-2.0) mmol/L Calcium (8.6-10.3) mg/dL Total Bilirubin (0.2-1.0) mg/dL AST (13-39) U/L ALT (7-52) U/L Alkaline Phosphatase (34-104) U/L C-Reactive Protein (< 5.00) mg/L Total Protein (6.4-8.9) g/dL Albumin (3.2-5.2) g/dL Globulin (2-4) g/dL Albumin/Globulin Ratio (1-3) Lipase (11.0-82.0) U/L Urine Color Yellow Urine Appearance Clear Urine pH 7.0 (5-9) Ur Specific [place] 1.013 (1.010-1.030) Urine Protein Negative (Negative) Urine Ketones 1+ A (Negative) Urine Blood 1+ A (Negative) Urine Nitrate Negative (Negative) Urine Bilirubin Negative (Negative) Urine Urobilinogen Negative (Negative) Ur Leukocyte Esterase Negative (Negative) Urine WBC (Auto) Trace(0-5/hpf) (Absent) Urine RBC (Auto) 3+(>10/hpf) A (Absent) Ur Squamous Epith Cells Present A (Absent) Urine Bacteria Absent (Absent) Urine Glucose Negative (Negative) Blood Type O Negative Antibody Screen Negative 08/07/17 Range/Units 20:41 WBC (3.5-10.8) 10^3/ul RBC (4.0-5.4) 10^6/ul Hgb (12.0-16.0) g/dl Hct (35-47) % MCV (80-97) fL MCH (27-31) pg MCHC (31-36) g/dl RDW (10.5-15) % Plt Count (150-450) 10^3/ul MPV (7.4-10.4) um3 Neut % (Auto) (38-83) % Lymph % (Auto) (25-47) % [place] % (Auto) (0-7) % Eos % (Auto) (0-6) % Baso % (Auto) (0-2) % Absolute Neuts (auto) (1.5-7.7) 10^3/ul Absolute Lymphs (auto) (1.0-4.8) 10^3/ul Absolute Monos (auto) (0-0.8) 10^3/ul Absolute Eos (auto) (0-0.6) 10^3/ul Absolute Basos (auto) (0-0.2) 10^3/ul Absolute Nucleated RBC 10^3/ul Nucleated RBC % INR (Anticoag Therapy) (0.77-1.02) APTT (26.0-36.3) seconds Sodium (139-145) mmol/L Potassium (3.5-5.0) mmol/L Chloride (101-111) mmol/L Carbon Dioxide (22-32) mmol/L Anion Gap (2-11) mmol/L BUN (6-24) mg/dL Creatinine (0.51-0.95) mg/dL Est GFR ( Amer) (>60) Est GFR (Non-Af Amer) (>60) BUN/Creatinine Ratio (8-20) Glucose (70-100) mg/dL Lactic Acid (0.5-2.0) mmol/L Calcium (8.6-10.3) mg/dL Total Bilirubin (0.2-1.0) mg/dL AST (13-39) U/L ALT (7-52) U/L Alkaline Phosphatase (34-104) U/L C-Reactive Protein (< 5.00) mg/L Total Protein (6.4-8.9) g/dL Albumin (3.2-5.2) g/dL Globulin (2-4) g/dL Albumin/Globulin Ratio (1-3) Lipase (11.0-82.0) U/L Urine Color Yellow Urine Appearance Cloudy Urine pH 5.0 (5-9) Ur Specific [place] 1.013 (1.010-1.030) Urine Protein Negative (Negative) Urine Ketones 2+ A (Negative) Urine Blood Negative (Negative) Urine Nitrate Negative (Negative) Urine Bilirubin Negative (Negative) Urine Urobilinogen Negative (Negative) Ur Leukocyte Esterase Negative (Negative) Urine WBC (Auto) (Absent) Urine RBC (Auto) (Absent) Ur Squamous Epith Cells (Absent) Urine Bacteria (Absent) Urine Glucose Negative (Negative) Blood Type Antibody Screen Result Diagrams: 08/07/17 11:30 08/07/17 11:30 Lab Statement: Any lab studies that have been ordered have been reviewed, and results considered in the medical decision making process. - Radiology Abd MRI Radiology Interpretation Completed By: Radiologist - 1. Although there is trace fluid adjacent to the cecum and the appendix, the appendix is otherwise normal in appearance and normal in size. Acute appendicitis appears to be unlikely from an imaging perspective. 2. Mild to moderate right-sided hydronephrosis. Dr. Mariano has reviewed this report. - Additional Comments Diagnostic Additional Comments: US Appendix reveals appendix was not visualized limiting the study. Dr. Mariano has reviewed this radiology report. US Renal reveals 1. MILD RIGHT HYDRONEPHROSIS. 2. POSSIBLE SMALL BILATERAL RENAL CALCULI. Dr. Mariano has reviewed this radiology report. US reveals Normal single intrauterine gestation in the breech position with composite growth parameters yielding an average gestational age of [address] Mariano has reviewed this radiology report. Re-Evaluation - Re-Evaluation First Eval Re-Evaluation Time: 14:19 Comment: Pt still in a lot of pain. Second Eval Re-Evaluation Time: 16:51 Comment: Pt still with RLQ pain Third Eval Re-Evaluation Time: 17:43 Comment: Reviewed plan for MRI. Fourth Eval Re-Evaluation Time: 22:33 Comment: On re-examination, pt is tender across lower abd, mostly at RLQ, least LLQ, also tender at midline. Abdominal Pain Fem Course/Dx - Course Course Of Treatment: Medications reviewed. [15:35] Dr. Soto (EXTRUSION ENGINEER) states sounds like baby sounds good. [15:36] Dr. Freire (surgery) agrees to see pt in ED. Dr. Freire states low possibility of appendicitis though only way to make sure would be CT. [17:06] Dr. Soto (EXTRUSION ENGINEER) recommends MRI. [18:20] Dr. Phipps (Hospitalist) consulted for admission. [22:33] Dr. Soto (EXTRUSION ENGINEER) agrees to see pt in ED. ADMIT HOSPITALIST - Diagnoses Provider Diagnoses: Abdominal pain during , Hematuria, Hydronephrosis - Provider Notifications Discussed Care Of Patient With: Thomas Borges - Urology Time Discussed With Above Provider: 15:00 Instructed by Provider To: Other - could be small stone but because US said good bilat ureteral jets would not intervene with stent. Pt would be seen out patient. Discharge - Sign-Out/Discharge Documenting (check all that apply): Discharge/Admit/Transfer - Discharge Plan Condition: Stable Disposition: ADMITTED TO [facility] Referrals: Christiano Khan MD [Primary Care Provider] - - Billing Disposition and Condition Condition: STABLE [place] [facility] [place] The documentation as recorded by the Natalee liang Nilda accurately reflects the service I personally performed and the decisions made by me, Darinel Mariano MD.
--- NOTE | 2017-08-08 00:29 | CONS ---
ADDENDUM NOW INCLUDED ON THIS REPORT CC: Christiano Khan MD * CONSULTATION REPORT: DATE OF CONSULT: 08/07/17 REFERRING PROVIDER: Dr. Darinel Mariano, emergency room physician. REASON FOR CONSULT: Lower abdominal pain. HISTORY OF PRESENT ILLNESS: Ms. Adalgisa Jerez is a very pleasant 21-year-old woman who is 17 weeks with her first and has been doing well with the so far until this past Monday. 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 She stated that later that evening she developed a sudden onset of right lower quadrant suprapubic crampy pain radiating over to her left groin area as well. She had no flank discomfort. This was not associated with nausea or vomiting and the pain was what she described as colicky, coming and going with pain-free periods of time. She had no vaginal bleeding at that time and had no urinary complaints. Her last bowel movement was on Monday. She has had no diarrhea since that time. She said she slept well on Monday night and then Monday developed some recurrence of the discomfort which was described as intermittent but seemed to worsen when she was walking or lying on her right side. Once again she had a good appetite and would eat well but then also developed a little bit of vomiting which was sporadic but she was never anorexic and continued to eat without difficulty. She did not work on Monday or Monday. She states that she had no fevers, shakes, or chills. She has had no blood in her urine. She had a small amount of vaginal bleeding this morning, which was unusual for her. The pain had persisted intermittently and she then presented to the emergency room. While in the emergency room she had the following workup. 1. She had a white blood cell count of 10,900 which is essentially normal. There is no left shift. Electrolytes, BUN and creatinine were all within normal limits. Lactic acid of 0.7. Her urinalysis showed 1+ blood with greater than 10 red cells per high power field. There was no bacteria or leukocyte esterase. CRP was normal 2. She underwent an ultrasound of the appendix. The appendix was not visualized limiting the study. 3. She underwent a ultrasound. This showed normal single intrauterine gestation in the breech position of approximately 17 weeks. 4. She underwent a renal ultrasound which showed some mild right hydronephrosis and probable small bilateral renal calculi. Other than above, her has been going well and she has been receiving care on a scheduled basis. She gives a history of what she describes as pyelonephritis and/or urosepsis about a year ago and was treated in a hospital in [place] and was hospitalized for 2 weeks. She does not feel that she had any interventions for kidney stones, however. I do also note that she has had several visits to the emergency room over the past several years for lower abdominal discomfort, and had undergone a gallbladder ultrasound and CAT scan of the abdomen and pelvis which has been unremarkable, but during one visit she mentions, she states that her chief complaint was lower abdominal crampy intermittent abdominal pain, worse when lying on the right side. This was prior to her being . After Dr. Mariano had talked with both OB and Urology, general surgical consultation was obtained for evaluation of possible acute appendicitis or other surgical cause of her discomfort. PAST MEDICAL HISTORY: Unremarkable. PAST SURGICAL HISTORY: Tonsillectomy. MEDICATIONS: None. ALLERGIES: She has no known drug allergies. SOCIAL HISTORY: She lives alone. She does not use tobacco or alcohol. 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 REVIEW OF SYSTEMS: Cerebrovascular: No dizziness or visual disturbance. Cardiovascular: No chest pain, shortness of breath. Pulmonary: No wheezing or hemoptysis. GI: As per above. She has had no diarrhea or blood per rectum. She has had no vomiting. : As per above. She has a history of apparent renal stones and possible pyelonephritis. PHYSICAL EXAM: Temperature is 98.2, pulse 77, blood pressure 110/50. In general, she is a well-developed, well-nourished female who appears to be in no apparent distress, [facility] and is quite alert and pleasant. HEENT: Her sclera is anicteric. Oral mucosa is slightly dry. Lungs: Clear to auscultation with normal respiratory effort. Heart: Regular rate and rhythm without murmurs, rubs or gallops. Abdomen: Soft and nondistended. She had normoactive bowel sounds throughout. I appreciate no hernias or prior incisions. She has some mild tenderness in the suprapubic area, the left lower quadrant and the right lower quadrant without rebound, guarding, or rigidity. There is no flank pain on either side. There is no peritoneal irritation noted. DIAGNOSTIC STUDIES/LAB DATA: Labs are as noted above and were reviewed as well as the radiologic studies. IMPRESSION: Abdominal pain of intermittent, crampy type nature. This has been present at least for the past 72 hours. She is 17 weeks and had an episode of vaginal bleeding this morning. Laboratory workup and radiologic studies are reviewed and are as above. I do not believe that she has acute appendicitis at this point. On review of her history, she gives no history of anorexia and has been eating well other than having what she describes as intermittent vomiting, which did not prevent her form eating. Her pain started in the right lower quadrant suprapubic area i.e., she had no epigastric or periumbilical discomfort that migrated to the right lower quadrant and her pain was also of a rather sudden onset which would be atypical for acute appendicitis. She has essentially normal white blood cell count. She has had no fevers. Physical exam showed no evidence of localizing right lower quadrant pain with peritoneal irritation or guarding. I had a long discussion with her regarding this. At this point, I do not believe that she would warrant a laparoscopy at this point for diagnosis. I did discuss a CAT scan of the abdomen and pelvis with her, but I think this is going to be a low yield and will submit her and her baby to a radiation dose that is not completely indicated. I discussed all of the above with Dr. Mariano. I think that she is fine to be discharged home as long as she can tolerate liquids with close followup with Obstetrics and if her pain worsens or she develops different characterization of symptoms or discomfort, that she should return to the emergency room and at that point, I would recommend that we proceed with a CAT scan of the abdomen and pelvis. Thank you very much for this consultation. ADDENDUM: DATE OF CONSULT: 08/07/17 I reviewed the MRI that was done early this evening. The appendix appears to be normal. There is a very trace amount of right-sided abdominal fluid. I reviewed this with Dr. Hanson personally. He does not feel that this represents acute appendicitis. At the present time, I reevaluated the patient. She was sitting upright in bed eating a turkey sandwich. She states her pain comes in waves and radiates from the right side around to the left side. She appears very comfortable at this time. Her exam basically is the same without evidence of right lower quadrant abdominal pain, localized peritoneal irritation or tenderness. She does state that she has had some persistent vaginal bleeding since this morning and she is wearing a panty liner. With the constellation of her symptoms and in addition to the history and the MRI, I do not believe she has acute appendicitis or any other acute general surgical condition that requires intervention. We are presently awaiting OB consultation and at this point, I will defer to them for evaluation of her abdominal discomfort, which may be obstetric in nature. [id number]/[facility] #: [id number] Lety- [id number]/[facility] #: [id number] RONALD
[2017-08-08] MEDS: Ondansetron 40 MG VIAL* 2 MG/ML 20 ML VIAL IV PRN ×2 (01:00→16:32)
[2017-08-08] MEDS: NS 0.9% 1000 ML* 1,000 ML IV SCH ×4 (01:04→18:30)
[2017-08-08] MEDS: oxyCODONE/Acetamin 5/325 MG* TAB PO PRN ×5 (02:15→20:22)
[2017-08-08] MEDS ORDERED: Heparin VIAL(*) 5000 UNITS/ML VIAL (FIVE THOUSAND) SUBCUT SCH (06:00)
[2017-08-08 06:12] LABS: ABS Basophils 0.1 10^3/ul (0-0.2); ABS Eosinophils 0.3 10^3/ul (0-0.6); ABS Lymphocytes 2.9 10^3/ul (1.0-4.8); ABS Monocytes 0.6 10^3/ul (0-0.8); ABS Neutrophils 5.4 10^3/ul (1.5-7.7); ABS Nucleated RBC 0 10^3/ul; Eosinophil % 3.5 % (0-6); Hematocrit 28 % (35-47); Hemoglobin 9.8 g/dl (12.0-16.0); Lymphocyte % 30.8 % (25-47); Mean Corpuscular HGB Conc 35 g/dl (31-36); Mean Corpuscular Hemoglobin 32 pg (27-31); Mean Corpuscular Volume 91 fL (80-97); Mean Platelet Volume 10.6 um3 (7.4-10.4); Nucleated Red Blood Cells % 0; Platelet Count 139 10^3/ul (150-450); Red Cell Distribution Width 13 % (10.5-15); White Blood Count 9.3 10^3/ul (3.5-10.8)
[2017-08-08 06:17] LABS: INR 0.9 (0.77-1.02)
[2017-08-08 06:29] LABS: EGFR Non-African American 145.6 (>60)
--- NOTE | 2017-08-08 06:41 | HP ---
CC: Dr. Borges; Dr. Soto; Dr. Khan * HISTORY AND PHYSICAL: DATE OF ADMISSION: 08/07/17 PRIMARY CARE PROVIDER: None. ATTENDING PHYSICIAN WHILE IN THE HOSPITAL: Priyanka Koenig MD * (report dictated by Giancarlo Arroyo NP). CONSULTING UROLOGIST: Dr. Borges. CONSULTING SURVEYOR CHAIN HELPER: Dr. Soto. PRIMARY SURVEYOR CHAIN HELPER: Dr. Khan. CHIEF COMPLAINT: Abdominal pain. HISTORY OF PRESENTING ILLNESS: Ms. Jerez is a 21-year-old female patient. She has a history of nephrolithiasis x2 prior to today. In addition to this, she also carries a history of . She is a G3, P1. She comes into the ER today stating that over the weekend she started developing severe abdominal pain mostly in her back, right lower quadrant, also into the left side as well. She did notice that she was having some blood, she thinks in her urine. She states she had not had any fevers or chills, but she states the pain was coming and going in waves. She felt nauseated with this, she did not vomit, but she states the pain just was not getting any better, so she decided to come in. She denied having any fevers or chills. She denied having any chest pain or shortness of breath. She denied any dysuria, no frequency. She denied any vaginal discharge to me. She states the pain felt similar to the pain that she had with her previous kidney stone. She states that the pain got so bad at one point that she just could not even move because she was having so much pain. She denied again any chest pain, shortness of breath. No urinary symptoms. She came into the ER today, the pain was mostly on the right side, ultimately was found to have mild hydronephrosis. In addition to this, found to have a nephrolithiasis. We were asked to evaluate for admission for pain management. PAST MEDICAL HISTORY: Include: 1. Nephrolithiasis. 2. G3, P1. PAST SURGICAL HISTORY: She has had tonsillectomy, wisdom teeth extraction. HOME MEDICATIONS: Include vitamin. ALLERGIES TO MEDICATIONS: Include no known drug allergies. FAMILY HISTORY: She is adopted. SOCIAL HISTORY: She does not smoke or drink. She does not appoint a surrogate decision maker at this point. REVIEW OF SYSTEMS: There is no documented fever. She denies having any significant weight change. There is no double vision. She denies having any ear discharge. There is no rhinorrhea. No sore throat or thyroid enlargement. Denied any chest pain. There is no orthopnea. No nocturnal dyspnea. There is abdominal pain per my HPI. There is no dysuria, no frequency, no seizure. No loss of consciousness. No pruritus and no skin ulcerations. Review of 14 systems completed, all others negative. PHYSICAL EXAMINATION GENERAL: At this time, Ms. Jerez is a 21-year-old female patient. She appears to be well nourished, well developed. She is sitting in the ED stretcher. She does not appear to be in any acute distress. VITAL SIGNS: Blood pressure 129/68, pulse 72, respirations 18, O2 sat 99%, temperature 98.2. HEENT: Head: Atraumatic, normocephalic. Eyes: EOMs are intact. Sclerae anicteric, not pale. NECK: Supple. Throat: Oral mucosa appears to be moist. No oropharyngeal erythema. LUNGS: Clear to auscultation bilaterally. No wheezes, rales, or rhonchi. HEART: Sounds S1, S2. Regular rate and rhythm. No murmurs, rubs or gallops. ABDOMEN: Soft, it was flat. She did have tenderness along the right lower quadrant and right CVA tenderness. She was tender in the left CVA as well. EXTREMITIES: Pulses were 2+ throughout. She is moving all 4 extremities with 5 /5 strength. NEUROLOGICAL: She is awake, alert, oriented x3. No gross focal deficits. SKIN: Grossly intact. DIAGNOSTIC STUDIES/LAB DATA: Labs today revealed a WBC of 10.9, RBC 3.66, hemoglobin 11.5, hematocrit 33, platelet count of 160,000. INR was 0.90, PTT was 27.5. Sodium 136, potassium 3.5, chloride 107, bicarb 24, BUN 5, creatinine 0.51, glucose 78, lactic 0.7, calcium 8.9. Total bili 0.5, AST 10, ALT 7, alk phos 47. CRP 4.7. Albumin 3.7. Lipase negative. Initial urine showed 1+ ketone, 1+ blood, 2+ RBC. Repeat urine showed 2+ ketones. She had appendix ultrasound. Impression: Appendix was not visualized, limiting the study. ultrasound was obtained which showed normal single intrauterine gestation in the breech position with composite growth parameters yielding an average gestational age of 17 weeks and 2 days. The impression did read 7 weeks, but in the body of the report it does read 17 weeks. The renal ultrasound obtained today showed mild right hydronephrosis, possible mild bilateral renal calculi. Abdominal MRI revealed, although there is trace fluid adjacent to the cecum and appendix, the appendix otherwise is normal in appearance normal in size. Acute appendicitis appears to be unlikely from imaging perspective, [id number] right-sided hydronephrosis. Old medical records reviewed. ASSESSMENT AND PLAN: Ms. Jerez is a 21-year-old female patient coming into the ED today with complaint of abdominal pain and 17 weeks . We were asked to evaluate for admission and she will be admitted under observation status for: 1. Abdominal pain. I suspect this is related to nephrolithiasis particularly on the right side with [id number] hydronephrosis. The patient was evaluated by WATER RESOURCES PROJECT MANAGER. In addition to this, also evaluated by Surgery and the case was discussed with Urology. Plan will be to admit the patient for pain control. There were bilateral jets, so she will be admitted for pain control at this point. I will go ahead and repeat her BMP in the morning, monitoring the creatinine; should it go up, we will consider repeat renal ultrasound and formally touch base with Urology tomorrow, but the ER did touch base with them already. I did place the consult to Urology, but the plan will be for pain control, monitor for any fevers. She does not appear to be infected. The pain appears to be stable now and I will continue to follow. 2. . Again, WATER RESOURCES PROJECT MANAGER has been consulted. I will stick to narcotics for pain management, Tylenol and p.r.n. Zofran. 3. DVT prophylaxis. She will be placed on SCDs. 4. Code status. Full code. 5. Fluids, electrolytes, and nutrition: She can have a regular diet. TIME SPENT: On this admission was 60 minutes, greater than half the time was spent [id number]-[id number] with the patient obtaining my history and physical, other half of the time was spent going over the plan of care with the patient and implementing the plan of care. I discussed the plan of care with my attending, Dr. Koenig, she is in agreement. GIANCARLO ARROYO NP [id number]/[facility] #: [id number] [facility]
--- NOTE | 2017-08-08 07:14 | CONS ---
CONSULTATION REPORT: DATE OF CONSULT: 08/07/17 ADDENDUM: I reviewed the MRI that was done early this evening. The appendix appears to be normal. There is a very trace amount of right-sided abdominal fluid. I reviewed this with Dr. Hanson personally. Does not feel that this represents acute appendicitis. At the present time, I reevaluated the patient. She was sitting upright in bed eating a turkey sandwich. She states her pain comes in waves and radiates from the right side around to the left side. Her exam basically is the same without evidence of right lower quadrant abdominal pain, localized peritoneal irritation or tenderness. She does state that she has had some persistent vaginal bleeding since this morning and she is wearing a panty liner. With the constellation of her symptoms and in addition to the history and the MRI, I do not believe she has acute appendicitis or any other acute general surgical condition that requires intervention. We are presently awaiting OB consultation and at this point, I will defer to them for evaluation of her abdominal discomfort, which I believe is obstetric in nature. [id number]/[facility] #: [id number] RONALD
[2017-08-08] MEDS ORDERED: Prenatal Vitamin TAB PO SCH (09:00)
--- NOTE | 2017-08-08 09:13 | PN ---
Subjective Date of Service: 08/08/17 Interval History: Pt feels "not any better". C/o b/l lower abd pain raditing to b/l flanks r>L. no problems with urination. Vaginal bloody spotting x 4 days noted. Last BM 3 days ago. good appetite, denies nausea Refuses to take Percocet since "her fathers told her that it may hurt the baby" and Dilaudid is not relieving the pain that much Objective Active Medications: Acetaminophen (Tylenol Tab*) 650 mg PO Q4H PRN PRN Reason: FEVER/PAIN Hydromorphone HCl (Dilaudid Inj*) 0.5 mg IV SLOW PU Q4H PRN PRN Reason: PAIN Sodium Chloride (Ns 0.9% 1000 Ml*) 1,000 mls @ 125 mls/hr IV PER RATE [facility] Last Admin: 08/08/17 09:01 Dose: 125 mls/hr Multivitamins ( Vitamin Tab*) 1 tab PO DAILY [facility] Last Admin: 08/08/17 09:04 Dose: 1 tab Ondansetron HCl (Zofran Inj*) 4 mg IV Q6H PRN PRN Reason: NAUSEA/VOMITING Last Admin: 08/08/17 01:00 Dose: 4 mg Oxycodone/Acetaminophen (Percocet 5/325 Tab*) 1 tab PO Q4H PRN PRN Reason: PAIN Last Admin: 08/08/17 06:14 Dose: 1 tab Vital Signs - 8 hr 08/08/17 08/08/17 08/08/17 02:15 03:50 04:30 Temperature 98.1 F Pulse Rate 67 Respiratory 18 16 16 Rate Blood Pressure 101/40 (mmHg) O2 Sat by Pulse 99 Oximetry 08/08/17 08/08/17 06:14 08:00 Temperature Pulse Rate Respiratory 18 18 Rate Blood Pressure (mmHg) O2 Sat by Pulse Oximetry Oxygen Devices in Use Now: None Appearance: 21 yo f in nAD, anxous appearing, AAOx3 Eyes: No Scleral Icterus, PERRLA Ears/Nose/Mouth/Throat: NL Teeth, Lips, Gums, Mucous Membranes Moist Neck: NL Appearance and Movements; NL JVP, Trachea Midline Respiratory: Symmetrical Chest Expansion and Respiratory Effort, Clear to Auscultation Cardiovascular: NL Sounds; No Murmurs; No JVD, RRR Abdominal: No Hepatosplenomegaly, - - soft, mildly tender in b/l LQ's, b/l flank tenderness noted, no rebound, no guarding, BS+ Lymphatic: No Cervical Adenopathy Extremities: No Edema, No Clubbing, Cyanosis Skin: No Rash or Ulcers, No Nodules or Sclerosis Neurological: Alert and Oriented x 3, NL Muscle Strength and Tone Result Diagrams: 08/08/17 05:57 08/08/17 05:58 Additional Lab and Data: Lab Results 08/07/17 08/07/17 08/07/17 Range/Units 11:30 11:30 11:30 WBC 10.9 H (3.5-10.8) 10^3/ul RBC 3.66 L (4.0-5.4) 10^6/ul Hgb 11.5 L (12.0-16.0) g/dl Hct 33 L (35-47) % MCV 90 (80-97) fL MCH 31 (27-31) pg MCHC 35 (31-36) g/dl RDW 13 (10.5-15) % Plt Count 160 (150-450) 10^3/ul MPV 10.5 H (7.4-10.4) um3 Neut % (Auto) 75.8 (38-83) % Lymph % (Auto) 17.7 L (25-47) % [place] % (Auto) 4.2 (0-7) % Eos % (Auto) 1.7 (0-6) % Baso % (Auto) 0.6 (0-2) % Absolute Neuts (auto) 8.3 H (1.5-7.7) 10^3/ul Absolute Lymphs (auto) 1.9 (1.0-4.8) 10^3/ul Absolute Monos (auto) 0.5 (0-0.8) 10^3/ul Absolute Eos (auto) 0.2 (0-0.6) 10^3/ul Absolute Basos (auto) 0.1 (0-0.2) 10^3/ul Absolute Nucleated RBC 0 10^3/ul Nucleated RBC % 0 INR (Anticoag Therapy) 0.90 (0.77-1.02) APTT 27.5 (26.0-36.3) seconds Sodium 136 L (139-145) mmol/L Potassium 3.5 (3.5-5.0) mmol/L Chloride 107 (101-111) mmol/L Carbon Dioxide 24 (22-32) mmol/L Anion Gap 5 (2-11) mmol/L BUN 5 L (6-24) mg/dL Creatinine 0.51 (0.51-0.95) mg/dL Est GFR ( Amer) 195.8 (>60) Est GFR (Non-Af Amer) 152.2 (>60) BUN/Creatinine Ratio 9.8 (8-20) Glucose 78 (70-100) mg/dL Lactic Acid (0.5-2.0) mmol/L Calcium 8.9 (8.6-10.3) mg/dL Total Bilirubin 0.50 (0.2-1.0) mg/dL AST 10 L (13-39) U/L ALT 7 (7-52) U/L Alkaline Phosphatase 47 (34-104) U/L C-Reactive Protein 4.70 (< 5.00) mg/L Total Protein 6.1 L (6.4-8.9) g/dL Albumin 3.7 (3.2-5.2) g/dL Globulin 2.4 (2-4) g/dL Albumin/Globulin Ratio 1.5 (1-3) Lipase < 10 L (11.0-82.0) U/L Urine Color Urine Appearance Urine pH (5-9) Ur Specific [place] (1.010-1.030) Urine Protein (Negative) Urine Ketones (Negative) Urine Blood (Negative) Urine Nitrate (Negative) Urine Bilirubin (Negative) Urine Urobilinogen (Negative) Ur Leukocyte Esterase (Negative) Urine WBC (Auto) (Absent) Urine RBC (Auto) (Absent) Ur Squamous Epith Cells (Absent) Urine Bacteria (Absent) Urine Glucose (Negative) Blood Type Antibody Screen 08/07/17 08/07/17 08/07/17 Range/Units 11:30 11:30 13:30 WBC (3.5-10.8) 10^3/ul RBC (4.0-5.4) 10^6/ul Hgb (12.0-16.0) g/dl Hct (35-47) % MCV (80-97) fL MCH (27-31) pg MCHC (31-36) g/dl RDW (10.5-15) % Plt Count (150-450) 10^3/ul MPV (7.4-10.4) um3 Neut % (Auto) (38-83) % Lymph % (Auto) (25-47) % [place] % (Auto) (0-7) % Eos % (Auto) (0-6) % Baso % (Auto) (0-2) % Absolute Neuts (auto) (1.5-7.7) 10^3/ul Absolute Lymphs (auto) (1.0-4.8) 10^3/ul Absolute Monos (auto) (0-0.8) 10^3/ul Absolute Eos (auto) (0-0.6) 10^3/ul Absolute Basos (auto) (0-0.2) 10^3/ul Absolute Nucleated RBC 10^3/ul Nucleated RBC % INR (Anticoag Therapy) (0.77-1.02) APTT (26.0-36.3) seconds Sodium (139-145) mmol/L Potassium (3.5-5.0) mmol/L Chloride (101-111) mmol/L Carbon Dioxide (22-32) mmol/L Anion Gap (2-11) mmol/L BUN (6-24) mg/dL Creatinine (0.51-0.95) mg/dL Est GFR ( Amer) (>60) Est GFR (Non-Af Amer) (>60) BUN/Creatinine Ratio (8-20) Glucose (70-100) mg/dL Lactic Acid 0.7 (0.5-2.0) mmol/L Calcium (8.6-10.3) mg/dL Total Bilirubin (0.2-1.0) mg/dL AST (13-39) U/L ALT (7-52) U/L Alkaline Phosphatase (34-104) U/L C-Reactive Protein (< 5.00) mg/L Total Protein (6.4-8.9) g/dL Albumin (3.2-5.2) g/dL Globulin (2-4) g/dL Albumin/Globulin Ratio (1-3) Lipase (11.0-82.0) U/L Urine Color Yellow Urine Appearance Clear Urine pH 7.0 (5-9) Ur Specific [place] 1.013 (1.010-1.030) Urine Protein Negative (Negative) Urine Ketones 1+ A (Negative) Urine Blood 1+ A (Negative) Urine Nitrate Negative (Negative) Urine Bilirubin Negative (Negative) Urine Urobilinogen Negative (Negative) Ur Leukocyte Esterase Negative (Negative) Urine WBC (Auto) Trace(0-5/hpf) (Absent) Urine RBC (Auto) 3+(>10/hpf) A (Absent) Ur Squamous Epith Cells Present A (Absent) Urine Bacteria Absent (Absent) Urine Glucose Negative (Negative) Blood Type O Negative Antibody Screen Negative 08/07/17 Range/Units 20:41 WBC (3.5-10.8) 10^3/ul RBC (4.0-5.4) 10^6/ul Hgb (12.0-16.0) g/dl Hct (35-47) % MCV (80-97) fL MCH (27-31) pg MCHC (31-36) g/dl RDW (10.5-15) % Plt Count (150-450) 10^3/ul MPV (7.4-10.4) um3 Neut % (Auto) (38-83) % Lymph % (Auto) (25-47) % [place] % (Auto) (0-7) % Eos % (Auto) (0-6) % Baso % (Auto) (0-2) % Absolute Neuts (auto) (1.5-7.7) 10^3/ul Absolute Lymphs (auto) (1.0-4.8) 10^3/ul Absolute Monos (auto) (0-0.8) 10^3/ul Absolute Eos (auto) (0-0.6) 10^3/ul Absolute Basos (auto) (0-0.2) 10^3/ul Absolute Nucleated RBC 10^3/ul Nucleated RBC % INR (Anticoag Therapy) (0.77-1.02) APTT (26.0-36.3) seconds Sodium (139-145) mmol/L Potassium (3.5-5.0) mmol/L Chloride (101-111) mmol/L Carbon Dioxide (22-32) mmol/L Anion Gap (2-11) mmol/L BUN (6-24) mg/dL Creatinine (0.51-0.95) mg/dL Est GFR ( Amer) (>60) Est GFR (Non-Af Amer) (>60) BUN/Creatinine Ratio (8-20) Glucose (70-100) mg/dL Lactic Acid (0.5-2.0) mmol/L Calcium (8.6-10.3) mg/dL Total Bilirubin (0.2-1.0) mg/dL AST (13-39) U/L ALT (7-52) U/L Alkaline Phosphatase (34-104) U/L C-Reactive Protein (< 5.00) mg/L Total Protein (6.4-8.9) g/dL Albumin (3.2-5.2) g/dL Globulin (2-4) g/dL Albumin/Globulin Ratio (1-3) Lipase (11.0-82.0) U/L Urine Color Yellow Urine Appearance Cloudy Urine pH 5.0 (5-9) Ur Specific [place] 1.013 (1.010-1.030) Urine Protein Negative (Negative) Urine Ketones 2+ A (Negative) Urine Blood Negative (Negative) Urine Nitrate Negative (Negative) Urine Bilirubin Negative (Negative) Urine Urobilinogen Negative (Negative) Ur Leukocyte Esterase Negative (Negative) Urine WBC (Auto) (Absent) Urine RBC (Auto) (Absent) Ur Squamous Epith Cells (Absent) Urine Bacteria (Absent) Urine Glucose Negative (Negative) Blood Type Antibody Screen Assess/Plan/Problems-Billing Assessment: 21 yo f , 17 weeks presented with b/l lower abd pain and vaginal spotting x 4 days. - Patient Problems (1) Abdominal pain Comment: Pt has mild R hydronephrosis with b/l ureterla jest visualised. D/w urology. There is no urologist environmental services tech today. will repeat renal US in AM. for now willl tx with IVF and pain meds. It is also questionable if pain is in fact related to a renal problem. Pt has a mild hydro on R and pain is bilateral. Asked Dr. Khan to see pt in [employer] f/ u. MRI abd unremarkable apart for mild to moderate R hydronephrosis UA unremarkable. CRP 4, no leukocytosis no suggest infection (2) Comment: As per Dr. Khan HR ordered Q shift (3) DVT prophylaxis Comment: ambulation Status and Disposition: OBV
--- NOTE | 2017-08-08 10:02 | PN ---
Medicine Progress Note - Date of Service Date of Service: 08/08/17 - Obstetric service - Objective Objective: Vital Signs 08/08/17 08/08/17 08/08/17 00:01 00:54 02:15 Temperature 97.9 F 98.2 F Pulse Rate 72 59 Respiratory 16 16 18 Rate Blood Pressure 129/68 97/47 (mmHg) O2 Sat by Pulse 100 100 Oximetry 08/08/17 08/08/17 08/08/17 03:50 04:30 06:14 Temperature 98.1 F Pulse Rate 67 Respiratory 16 16 18 Rate Blood Pressure 101/40 (mmHg) O2 Sat by Pulse 99 Oximetry 08/08/17 08/08/17 07:41 08:00 Temperature 97.8 F Pulse Rate 62 Respiratory 16 18 Rate Blood Pressure 94/47 (mmHg) O2 Sat by Pulse 100 Oximetry Current Medications Acetaminophen (Tylenol Tab*) 650 mg PO Q4H PRN PRN Reason: FEVER/PAIN Hydromorphone HCl (Dilaudid Inj*) 0.5 mg IV SLOW PU Q4H PRN PRN Reason: PAIN Sodium Chloride (Ns 0.9% 1000 Ml*) 1,000 mls @ 125 mls/hr IV PER RATE [facility] Last Admin: 08/08/17 09:01 Dose: 125 mls/hr Multivitamins ( Vitamin Tab*) 1 tab PO DAILY [facility] Last Admin: 08/08/17 09:04 Dose: 1 tab Ondansetron HCl (Zofran Inj*) 4 mg IV Q6H PRN PRN Reason: NAUSEA/VOMITING Last Admin: 08/08/17 01:00 Dose: 4 mg Oxycodone/Acetaminophen (Percocet 5/325 Tab*) 1 tab PO Q4H PRN PRN Reason: PAIN Last Admin: 08/08/17 06:14 Dose: 1 tab Intake & Output 08/06/17 08/07/17 08/08/17 08/09/17 06:59 06:59 06:59 06:59 Intake Total 150 950 Output Total 1000 400 Balance -850 550 Weight 125 lb Intake: IV Fluids 950 NS (0.9%) 950 Oral 150 Output: Urine 1000 400 ADLs: Meal Record Start: 08/08/17 00: 00 Freq: Status: Active Protocol: Created 08/08/17 00:00 System (Rec: 08/08/17 00:00 System [id number]) Intake and Output Start: 08/08/17 00: 00 Freq: DAILY@0600,1400,2200 Status: Active Protocol: Created 08/08/17 00:00 System (Rec: 08/08/17 00:00 System [id number]) Document 08/08/17 05:28 [id number] (Rec: 08/08/17 05:29 [id number]) Document 08/08/17 05:28 [id number] (Rec: 08/08/17 05:28 [id number]) Document 08/08/17 06:11 [id number] (Rec: 08/08/17 06:11 [id number]) Document 08/08/17 09:08 (Rec: 08/08/17 09:08 [id number]) Last Finger Stick Glucose Documented by Nursing: General:Patient is lying in bed in no distress but uncomfortable from b/l flank pain. Lungs:deferred Cardiovascular:deferred Abdomen:Soft, gravid, not distended, no uterine tenderness noted, normal bowels sounds. Bilateral CVA tenderness right>left. Extremities:N/A Neuro:AAOx3 - Labs Labs: Laboratory Results - last 24 hr 08/08/17 08/08/17 08/08/17 05:57 05:57 05:58 WBC 9.3 RBC 3.10 L Hgb 9.8 L Hct 28 L MCV 91 MCH 32 H MCHC 35 RDW 13 Plt Count 139 L MPV 10.6 H Neut % (Auto) 58.5 Lymph % (Auto) 30.8 [place] % (Auto) 6.3 Eos % (Auto) 3.5 Baso % (Auto) 0.9 Absolute Neuts (auto) 5.4 Absolute Lymphs (auto) 2.9 Absolute Monos (auto) 0.6 Absolute Eos (auto) 0.3 Absolute Basos (auto) 0.1 Absolute Nucleated RBC 0 Nucleated RBC % 0 INR (Anticoag Therapy) 0.90 Sodium 136 L Potassium 3.4 L Chloride 109 Carbon Dioxide 22 Anion Gap 5 BUN 5 L Creatinine 0.53 Est GFR ( Amer) 187.3 Est GFR (Non-Af Amer) 145.6 BUN/Creatinine Ratio 9.4 Glucose 80 Calcium 8.0 L - Assessment Assessment: AMINATA SILVERIO is a 21 year old lady with an intrauterine at 17+ weeks EGA. Patient's diagnosis is NEPHROLITHIASIS with b/l flank pain with s/ sx consisitent with pain secondary to passage of renal stones.. - Plan Plan: 1. -continue current management, monitor with daily heart tones. I reviewed pain medications with the patient and reassured her that for her current condition and limited use, these will pose no complications to her or her fetus. 2. Renal lithiasis and hydronephrosis. agree with current management. patient did admit to better pain control, albeit slow but imrpoving. As long her condition is not worsening, I look forward to her repeat renal ultrasound tomorrow and Urology input.
[2017-08-09] MEDS: NS 0.9% 1000 ML* 1,000 ML IV SCH ×4 (03:53→20:58)
[2017-08-09 06:28] LABS: ABS Basophils 0 10^3/ul (0-0.2); ABS Eosinophils 0.3 10^3/ul (0-0.6); ABS Lymphocytes 2.5 10^3/ul (1.0-4.8); ABS Monocytes 0.5 10^3/ul (0-0.8); ABS Neutrophils 5.8 10^3/ul (1.5-7.7); ABS Nucleated RBC 0 10^3/ul; Eosinophil % 3.5 % (0-6); Hematocrit 31 % (35-47); Hemoglobin 10.9 g/dl (12.0-16.0); Lymphocyte % 27.3 % (25-47); Mean Corpuscular HGB Conc 35 g/dl (31-36); Mean Corpuscular Hemoglobin 32 pg (27-31); Mean Corpuscular Volume 91 fL (80-97); Mean Platelet Volume 10.4 um3 (7.4-10.4); Nucleated Red Blood Cells % 0.1; Platelet Count 152 10^3/ul (150-450); Red Blood Count 3.45 10^6/ul (4.0-5.4); Red Cell Distribution Width 14 % (10.5-15); White Blood Count 9.2 10^3/ul (3.5-10.8)
[2017-08-09 06:49] LABS: EGFR Non-African American 142.5 (>60)
[2017-08-09] MEDS: oxyCODONE/Acetamin 5/325 MG* TAB PO PRN (09:23)
[2017-08-09] MEDS: Prenatal Vitamin TAB PO SCH (09:24)
[2017-08-09] MEDS: KCL 10 MEQ/50 ML IVPREMIX* 10 MEQ/50 ML BAG IV SCH ×2 (09:25→13:08)
--- NOTE | 2017-08-09 09:31 | RAD ---
Indication: Follow-up hydronephrosis. Real-time sonography of the kidneys was performed. The right kidney measures 10.5 x 4.5 x 5.2 cm. Moderate hydronephrosis is noted. Rounded calcification measuring 6 mm is noted in the right renal collecting system which does not appear to be causing obstruction. The left kidney measures 9.9 x 5.2 x 5.50 cm with moderate hydronephrosis. The urinary bladder demonstrates post void residual of 34 mL. Bladder wall measures 2 mm with no bladder wall masses. Bilateral ureteral jets are noted. IMPRESSION: Bilateral ureteral jets are identified. Moderate hydronephrosis bilaterally with likely nonobstructing calculi in the midpole of the right kidney.
[2017-08-09] MEDS ORDERED: oxyCODONE/Acetamin 5/325 MG* TAB PO PRN (11:02)
--- NOTE | 2017-08-09 15:22 | PN ---
Subjective Date of Service: 08/09/17 Interval History: Pt still c/o b/l lower abd pain radiating to back. spoke with pt's biological father Karan who was upset that pt was receiving narcotics. I reassured the father that pt has a choice of not taking narcotics, but that pain control may be difficult without them. Also that the [employer] service OK'ed narcotics Pt stated that she was hospitalized at [facility] for similar problem for 2 weeks 8 months ago and 1 yr ago was at [facility] also for the same problem. Never had a cystoscopy and never was told what exactly is happening. She has had back pain ever since that got exacerbated during Objective Active Medications: Acetaminophen (Tylenol Tab*) 650 mg PO Q4H PRN PRN Reason: FEVER/PAIN Sodium Chloride (Ns 0.9% 1000 Ml*) 1,000 mls @ 125 mls/hr IV PER RATE [facility] Last Admin: 08/09/17 11:56 Dose: 125 mls/hr Multivitamins ( Vitamin Tab*) 1 tab PO DAILY [facility] Last Admin: 08/09/17 09:24 Dose: 1 tab Ondansetron HCl (Zofran Inj*) 4 mg IV Q6H PRN PRN Reason: NAUSEA/VOMITING Last Admin: 08/08/17 16:32 Dose: 4 mg Oxycodone/Acetaminophen (Percocet 5/325 Tab*) 1 tab PO Q8H PRN PRN Reason: PAIN Vital Signs - 8 hr 08/09/17 08/09/17 08/09/17 07:44 09:23 13:10 Temperature 98.5 F Pulse Rate 69 Respiratory 16 18 18 Rate Blood Pressure 109/54 (mmHg) O2 Sat by Pulse 100 Oximetry Oxygen Devices in Use Now: None Appearance: 21 yo f in nAD, aAOx3 Eyes: No Scleral Icterus, PERRLA Neck: NL Appearance and Movements; NL JVP, Trachea Midline Respiratory: Symmetrical Chest Expansion and Respiratory Effort, Clear to Auscultation Cardiovascular: NL Sounds; No Murmurs; No JVD, RRR Abdominal: No Hepatosplenomegaly, - - tender in b/l lower quadrants, + CVA tenderness B/L, no rebound, no guarding, BS+ Lymphatic: No Cervical Adenopathy Extremities: No Edema, No Clubbing, Cyanosis Skin: No Rash or Ulcers, No Nodules or Sclerosis Neurological: Alert and Oriented x 3, NL Muscle Strength and Tone Result Diagrams: 08/09/17 06:05 08/09/17 06:05 Additional Lab and Data: Lab Results 08/07/17 08/07/17 08/07/17 Range/Units 11:30 11:30 11:30 WBC 10.9 H (3.5-10.8) 10^3/ul RBC 3.66 L (4.0-5.4) 10^6/ul Hgb 11.5 L (12.0-16.0) g/dl Hct 33 L (35-47) % MCV 90 (80-97) fL MCH 31 (27-31) pg MCHC 35 (31-36) g/dl RDW 13 (10.5-15) % Plt Count 160 (150-450) 10^3/ul MPV 10.5 H (7.4-10.4) um3 Neut % (Auto) 75.8 (38-83) % Lymph % (Auto) 17.7 L (25-47) % [place] % (Auto) 4.2 (0-7) % Eos % (Auto) 1.7 (0-6) % Baso % (Auto) 0.6 (0-2) % Absolute Neuts (auto) 8.3 H (1.5-7.7) 10^3/ul Absolute Lymphs (auto) 1.9 (1.0-4.8) 10^3/ul Absolute Monos (auto) 0.5 (0-0.8) 10^3/ul Absolute Eos (auto) 0.2 (0-0.6) 10^3/ul Absolute Basos (auto) 0.1 (0-0.2) 10^3/ul Absolute Nucleated RBC 0 10^3/ul Nucleated RBC % 0 INR (Anticoag Therapy) 0.90 (0.77-1.02) APTT 27.5 (26.0-36.3) seconds Sodium 136 L (139-145) mmol/L Potassium 3.5 (3.5-5.0) mmol/L Chloride 107 (101-111) mmol/L Carbon Dioxide 24 (22-32) mmol/L Anion Gap 5 (2-11) mmol/L BUN 5 L (6-24) mg/dL Creatinine 0.51 (0.51-0.95) mg/dL Est GFR ( Amer) 195.8 (>60) Est GFR (Non-Af Amer) 152.2 (>60) BUN/Creatinine Ratio 9.8 (8-20) Glucose 78 (70-100) mg/dL Lactic Acid (0.5-2.0) mmol/L Calcium 8.9 (8.6-10.3) mg/dL Total Bilirubin 0.50 (0.2-1.0) mg/dL AST 10 L (13-39) U/L ALT 7 (7-52) U/L Alkaline Phosphatase 47 (34-104) U/L C-Reactive Protein 4.70 (< 5.00) mg/L Total Protein 6.1 L (6.4-8.9) g/dL Albumin 3.7 (3.2-5.2) g/dL Globulin 2.4 (2-4) g/dL Albumin/Globulin Ratio 1.5 (1-3) Lipase < 10 L (11.0-82.0) U/L Urine Color Urine Appearance Urine pH (5-9) Ur Specific [place] (1.010-1.030) Urine Protein (Negative) Urine Ketones (Negative) Urine Blood (Negative) Urine Nitrate (Negative) Urine Bilirubin (Negative) Urine Urobilinogen (Negative) Ur Leukocyte Esterase (Negative) Urine WBC (Auto) (Absent) Urine RBC (Auto) (Absent) Ur Squamous Epith Cells (Absent) Urine Bacteria (Absent) Urine Glucose (Negative) Blood Type Antibody Screen 08/07/17 08/07/17 08/07/17 Range/Units 11:30 11:30 13:30 WBC (3.5-10.8) 10^3/ul RBC (4.0-5.4) 10^6/ul Hgb (12.0-16.0) g/dl Hct (35-47) % MCV (80-97) fL MCH (27-31) pg MCHC (31-36) g/dl RDW (10.5-15) % Plt Count (150-450) 10^3/ul MPV (7.4-10.4) um3 Neut % (Auto) (38-83) % Lymph % (Auto) (25-47) % Jay % (Auto) (0-7) % Eos % (Auto) (0-6) % Baso % (Auto) (0-2) % Absolute Neuts (auto) (1.5-7.7) 10^3/ul Absolute Lymphs (auto) (1.0-4.8) 10^3/ul Absolute Monos (auto) (0-0.8) 10^3/ul Absolute Eos (auto) (0-0.6) 10^3/ul Absolute Basos (auto) (0-0.2) 10^3/ul Absolute Nucleated RBC 10^3/ul Nucleated RBC % INR (Anticoag Therapy) (0.77-1.02) APTT (26.0-36.3) seconds Sodium (139-145) mmol/L Potassium (3.5-5.0) mmol/L Chloride (101-111) mmol/L Carbon Dioxide (22-32) mmol/L Anion Gap (2-11) mmol/L BUN (6-24) mg/dL Creatinine (0.51-0.95) mg/dL Est GFR ( Amer) (>60) Est GFR (Non-Af Amer) (>60) BUN/Creatinine Ratio (8-20) Glucose (70-100) mg/dL Lactic Acid 0.7 (0.5-2.0) mmol/L Calcium (8.6-10.3) mg/dL Total Bilirubin (0.2-1.0) mg/dL AST (13-39) U/L ALT (7-52) U/L Alkaline Phosphatase (34-104) U/L C-Reactive Protein (< 5.00) mg/L Total Protein (6.4-8.9) g/dL Albumin (3.2-5.2) g/dL Globulin (2-4) g/dL Albumin/Globulin Ratio (1-3) Lipase (11.0-82.0) U/L Urine Color Yellow Urine Appearance Clear Urine pH 7.0 (5-9) Ur Specific [place] 1.013 (1.010-1.030) Urine Protein Negative (Negative) Urine Ketones 1+ A (Negative) Urine Blood 1+ A (Negative) Urine Nitrate Negative (Negative) Urine Bilirubin Negative (Negative) Urine Urobilinogen Negative (Negative) Ur Leukocyte Esterase Negative (Negative) Urine WBC (Auto) Trace(0-5/hpf) (Absent) Urine RBC (Auto) 3+(>10/hpf) A (Absent) Ur Squamous Epith Cells Present A (Absent) Urine Bacteria Absent (Absent) Urine Glucose Negative (Negative) Blood Type O Negative Antibody Screen Negative 08/07/17 Range/Units 20:41 WBC (3.5-10.8) 10^3/ul RBC (4.0-5.4) 10^6/ul Hgb (12.0-16.0) g/dl Hct (35-47) % MCV (80-97) fL MCH (27-31) pg MCHC (31-36) g/dl RDW (10.5-15) % Plt Count (150-450) 10^3/ul MPV (7.4-10.4) um3 Neut % (Auto) (38-83) % Lymph % (Auto) (25-47) % Jay % (Auto) (0-7) % Eos % (Auto) (0-6) % Baso % (Auto) (0-2) % Absolute Neuts (auto) (1.5-7.7) 10^3/ul Absolute Lymphs (auto) (1.0-4.8) 10^3/ul Absolute Monos (auto) (0-0.8) 10^3/ul Absolute Eos (auto) (0-0.6) 10^3/ul Absolute Basos (auto) (0-0.2) 10^3/ul Absolute Nucleated RBC 10^3/ul Nucleated RBC % INR (Anticoag Therapy) (0.77-1.02) APTT (26.0-36.3) seconds Sodium (139-145) mmol/L Potassium (3.5-5.0) mmol/L Chloride (101-111) mmol/L Carbon Dioxide (22-32) mmol/L Anion Gap (2-11) mmol/L BUN (6-24) mg/dL Creatinine (0.51-0.95) mg/dL Est GFR ( Amer) (>60) Est GFR (Non-Af Amer) (>60) BUN/Creatinine Ratio (8-20) Glucose (70-100) mg/dL Lactic Acid (0.5-2.0) mmol/L Calcium (8.6-10.3) mg/dL Total Bilirubin (0.2-1.0) mg/dL AST (13-39) U/L ALT (7-52) U/L Alkaline Phosphatase (34-104) U/L C-Reactive Protein (< 5.00) mg/L Total Protein (6.4-8.9) g/dL Albumin (3.2-5.2) g/dL Globulin (2-4) g/dL Albumin/Globulin Ratio (1-3) Lipase (11.0-82.0) U/L Urine Color Yellow Urine Appearance Cloudy Urine pH 5.0 (5-9) Ur Specific [place] 1.013 (1.010-1.030) Urine Protein Negative (Negative) Urine Ketones 2+ A (Negative) Urine Blood Negative (Negative) Urine Nitrate Negative (Negative) Urine Bilirubin Negative (Negative) Urine Urobilinogen Negative (Negative) Ur Leukocyte Esterase Negative (Negative) Urine WBC (Auto) (Absent) Urine RBC (Auto) (Absent) Ur Squamous Epith Cells (Absent) Urine Bacteria (Absent) Urine Glucose Negative (Negative) Blood Type Antibody Screen Assess/Plan/Problems-Billing Assessment: 21 yo f , 17 weeks presented with b/l lower abd pain and vaginal spotting x 4 days. - Patient Problems (1) Abdominal pain Comment: Pt has mild R hydronephrosis with b/l ureteral jet was visualised. D/w urology. Dr. Borges saw pt this aM. Repeat US shows still the same hydronephrosis ( that is unchanged when pt's bladder is empty) symmetrical and no evidence of obstruction. As per urology there is no indication for cystoscopy while weighing the beneficts of cystoscopy vs the risks of the procedure to pt's . Pt understands that and would agree to nothing that could compromise her baby. For now will tx with IVF and Tylenol. Ok to use Perocet if pt requests. Med records from [facility] requested. (2) Comment: As per Dr. Khan HR ordered Q shift (3) Anemia Comment: likely hemodilutional. Vaginal spotting stopped (4) DVT prophylaxis Comment: ambulation Status and Disposition: OBV
[2017-08-09] MEDS: Acetaminophen TAB* 325 MG PO PRN (18:30)
[2017-08-09] MEDS: Ondansetron 40 MG VIAL* 2 MG/ML 20 ML VIAL IV PRN (22:29)
[2017-08-10] MEDS: Acetaminophen TAB* 325 MG PO PRN ×2 (02:56→09:11)
[2017-08-10] MEDS: NS 0.9% 1000 ML* 1,000 ML IV SCH (05:34)
--- NOTE | 2017-08-10 05:51 | CONS ---
CONSULTATION NOTE: DATE OF CONSULT: 08/09/17 HISTORY OF PRESENT ILLNESS: I was asked by Dr. To to see this 21-year-old white female because of right abdominal and right flank pain. Ms. Jerez is 17 weeks' and presented to the emergency room complaining of right lower quadrant and right flank pain. She noted some blood, however It was unsure if it was vaginal or hematuria. She did not have any fever or chills. She was worked up with a cath urinalysis, which showed a small amount of microscopic hematuria, no infection. Her CBC and chemistries were normal. She had a renal ultrasound, which showed [id number] right hydronephrosis and bilateral small echogenic foci in the lower poles of both kidneys suggestive of small renal calculi. There were good bilateral ureteral jets noted. The patient was evaluated or was seen in consultation by Obstetrics and by General Surgery and no significant findings were noted to require intervention. The patient was admitted and started on IV fluids and pain medications. MRI was reported as showing moderate Rt hydronephrosis, however reviewing the images it looked only mild hydro, and no other abnormalities, and no ureteral calculi were seen. The renal ultrasound was repeated this morning. It showed bilateral equal mild- to-moderate hydronephrosis and good bilateral ureteral jets. The bladder was fairly full. PHYSICAL EXAM: On examination, she is lying in bed and looked mildly uncomfortable. Her vital signs are normal. There is moderate right flank and right lower quadrant tenderness, but no guarding. Her past history is relevant for a similar episodes of flank and abdominal pain, and she was hospitalized in [place] for 2 weeks 2 years ago. These records were requested bt Dr To, but are are not available as of yet. The patient however, reported that she was not taken to the operating room, and did not have a cystoscopy or stent placement. That strongly suggests that there was no documentation of an obstructive uropathy as cause of her pain. IMPRESSION: On reviewing the above imaging, there is not enough justification to take the patient to the operating room for right ureteroscopy and right stent placement. The [id number]-dd-[id number] hydronephrosis can be physiologic with . The presence of bilateral equal ureteral jets is suggestive that obstructive uropathy is not the cause of her pain. PLAN: I recommend continued conservative management with observation and pain management as needed. If there are more findings to suggest right obstructive uropathy, then we will proceed with right ureteroscopy and stent placement. Thank you [id number]/SANDEEP #: [id number] RONALD
[2017-08-10 06:15] LABS: ABS Basophils 0 10^3/ul (0-0.2); ABS Eosinophils 0.4 10^3/ul (0-0.6); ABS Lymphocytes 2.2 10^3/ul (1.0-4.8); ABS Monocytes 0.6 10^3/ul (0-0.8); ABS Neutrophils 5.2 10^3/ul (1.5-7.7); ABS Nucleated RBC 0 10^3/ul; Eosinophil % 4.4 % (0-6); Hematocrit 28 % (35-47); Hemoglobin 9.8 g/dl (12.0-16.0); Lymphocyte % 26.1 % (25-47); Mean Corpuscular HGB Conc 35 g/dl (31-36); Mean Corpuscular Hemoglobin 32 pg (27-31); Mean Corpuscular Volume 90 fL (80-97); Mean Platelet Volume 10.5 um3 (7.4-10.4); Nucleated Red Blood Cells % 0; Platelet Count 140 10^3/ul (150-450); Red Cell Distribution Width 13 % (10.5-15); White Blood Count 8.4 10^3/ul (3.5-10.8)
[2017-08-10 06:36] LABS: EGFR Non-African American 145.6 (>60)
[2017-08-10] MEDS: Prenatal Vitamin TAB PO SCH (09:11)
[2017-08-10 11:37] VITALS: BP 104/56
[2017-08-10] MEDS ORDERED: Magnesium Hydroxide LIQ* 30 ML UDC PO PRN (12:08)
--- NOTE | 2017-08-10 12:37 | RAD ---
INDICATION: Hydronephrosis. COMPARISON: Comparison is made with the prior study from August 09, 2017. TECHNIQUE: Multiple real-time images of the kidneys were obtained. FINDINGS: The kidneys are normal in size shape and echogenicity. The right kidney measured 10.3 x 4.1 x 5.0 cm and the left kidney measured 11.0 x 4.9 x 4.9 cm. There is mild to moderate right hydronephrosis and mild left hydronephrosis which appear unchanged. There are echogenic foci in the upper pole of the right kidney and lower pole of the left kidney measuring 6 x 7 and 5 x 5 mm each suggestive of small calculi. There are symmetric bilateral ureteral vesicle jets. IMPRESSION: 1. MILD TO MODERATE BILATERAL HYDRONEPHROSIS, UNCHANGED. 2. POSSIBLE SMALL RENAL CALCULI.
--- NOTE | 2017-08-11 10:08 | DS ---
CC: Dr. Christiano Khan; Dr. Borges; Dr. Norton; Dr. Soto * DISCHARGE SUMMARY: DATE OF ADMISSION: 08/07/17 DATE OF DISCHARGE: 08/10/17 PRIMARY CARE PROVIDER: Dr. Christiano Khan. DISCHARGE DIAGNOSES: 1. Bilateral lower abdominal pain radiating to bilateral flanks likely due to mild bilateral hydronephrosis. 2. at 17 weeks. MEDICATIONS AT DISCHARGE: Include: 1. vitamin one tablet daily. 2. Tylenol 650 mg every 6 hours p.r.n. pain. CONSULTATIONS DURING THE HOSPITAL STAY: Included Dr. Soto and Dr. Khan from Obstetrics and Gynecology as well as Dr. Borges from Urology. TESTING PENDING AT THE TIME OF DICTATION: HIV self referred testing that is pending. REMAINING LABORATORY DATA AND STUDIES PERFORMED DURING THE HOSPITAL STAY: Included on 08/10/17, sodium of 136, potassium 3.6, chloride 109, carbon dioxide 21, BUN 4, creatinine 0.53. Patient's liver function tests that were obtained at admission were unremarkable with lipase of below 10. On 08/10/17, white blood cell count of 8.4, hemoglobin 9.8, hematocrit 28, platelets of 140. The drop in hemoglobin from 11.5 to 9.8 by the time of discharge was felt to be due to hemodilution since the patient had no evidence of bleeding. Urinalysis on 08/07/17 showed +2 ketones, otherwise unremarkable. Patient had three renal ultrasounds during her hospital stay and all of them showed [id number] bilateral hydronephrosis with no evidence of obstruction and possible small bilateral renal calculi. Abdomen MRI obtained at admission, impression: "Although there is trace fluid adjacent to the cecum and the appendix, the appendix is otherwise normal in appearance and normal size. Acute appendicitis appears to be likely from imaging perspective. Cuxo-wj-zfwkibuo right-sided hydronephrosis." ultrasound noted on 08/07/17, impression: "Normal single intrauterine gestation in the breech position with composite growth parameters yielding an average gestational age of 17 weeks and 2 days." HOSPITALIZATION COURSE: Adalgisa Jerez is a 21-year-old 3, para 0, who is 17 weeks who presented to the hospital complaining of bilateral flank abdominal pain, worse in the right. The patient was noted to have mild bilateral hydronephrosis and she was initially observed with suspicion of maybe obstructing renal stone. Despite multiple visualizations of patient's kidneys including MRI of the abdomen as well as three renal ultrasounds, it failed to disclose a specific obstruction of the ureters. Despite that patient continued to have mild bilateral hydronephrosis that appears to be symmetrical. Patient was seen by Dr. Borges from Urology. At this point, there was no indication for cystoscopy in patient who is 17 weeks . Weighing the risks versus benefits, patient does not appear to have any acute abnormality necessitating procedure could be risky for her . Patient understands that and stated that she was never agree to a procedure due to the risk of at this point. In addition to that patient stated that she has been having chronic b/l flank pain that was exacerbated now with her for the past year. Initially, she was evaluated by [facility] approximately a year ago and then she spent two weeks in a hospital in [place] for the same problem. She stated that she never had cystoscopy and "nothing was found out." During the patient's hospital stay, patient was evaluated by Dr. Christiano Khan as well as Dr. Soto. Both the gynecology specialists noted that the patient is safe to use narcotics throughout her hospital stay, but advised occasional use of narcotics after discharge. They also noted the patient a normally developed 17- week . By the time of discharge, patient still complained of bilateral lower abdominal pain, but was controlled with Tylenol. Patient's repeat ultrasound on the day of discharge showed still mild bilateral hydronephrosis unchanged from prior. At this point, patient is going to be discharged home with recommendation to follow up with her primary care provider , which at this point her solid waste disposal manager, Dr. Khan as well as with Dr. Borges if needed. Patient self referred HIV testing is pending at the time of dictation. Please also note during her hospital stay patient had urine cultures that were negative. She had anemia that was noted to be dilutional due to her IV fluids throughout her hospital stay. She had no evidence of renal failure and her CRP was 2.44 on 08/09/17. PHYSICAL EXAMINATION AT THE TIME OF DISCHARGE: Blood pressure of 104/56, heart rate of 86 and regular, respiratory rate 16, oxygen saturation 100% on room air , temperature of 98.5. General: Patient is a very pleasant 21-year-old female who is in no acute distress. Alert, awake, and oriented x3. HEENT: Head: Atraumatic, normocephalic. Eyes: Pupils equal and reactive to light and accommodation. Oropharynx clear. Mucosa moist. Neck: Supple. No JVD. No bruit bilaterally. Cardiovascular: Regular rate and rhythm. No murmur. Respiratory: Clear to auscultation bilaterally. Abdomen: Gravid, soft, minimally tender in bilateral flanks with no rebound, no guarding. Bowel sounds are present in all 4 quadrants. Extremities: There is no edema. Pulses +2 bilaterally. There is no clubbing or cyanosis. On evaluation of the skin, no ecchymotic areas or rashes are noted. Please note that this is a short summary of patient's hospitalization. Please refer to further medical records for details. TIME SPENT: Approximately 45 minutes were spent on preparation of patient's discharge. [id number]/[facility] #: [id number] MTDD
== END 2017-08-10 15:15 | disposition home or self-care (01) | DRG 566 ==
LOC: ED 10:29 → SSU 23:14 → UNDOADMOB 23:14 → SSU 08-09 21:49 → OBSVTOIN 08-09 21:49 → INTOOBSV 08-09 21:49
PROVIDERS: ADMIT Pediatrics; ATTEND Internal Medicine
DX: O99.89 Other specified diseases and conditions complicating pregnancy, childbirth and the puerperium (principal); N13.30 Unspecified hydronephrosis; F41.9 Anxiety disorder, unspecified; F32.9 Major depressive disorder, single episode, unspecified; O99.012 Anemia complicating pregnancy, second trimester; O99.341 Other mental disorders complicating pregnancy, first trimester; R31.9 Hematuria, unspecified; Z87.442 Personal history of urinary calculi; Z3A.17 17 weeks gestation of pregnancy; Z87.820 Personal history of traumatic brain injury; Z87.891 Personal history of nicotine dependence
CPT/HCPCS: 36415; 74181; 76705; 76770; 76775; 76815; 80048; 80053; 81003; 81015; 83605; 83690; 85025; 85610; 85730; 86140; 86703; 86850; 86900; 86901; 87086; 99284; A9270-GY; G0378; J2270; J2405; J2790; J3480

== ENCOUNTER 2017-08-12 16:39 | Observation (INO) | payer OTHER ==
[2017-08-12] MEDS ORDERED: NS 0.9% 1000 ML* 1,000 ML IV ONE (17:04)
[2017-08-12 17:30] LABS: ABS Basophils 0 10^3/ul (0-0.2); ABS Eosinophils 0.2 10^3/ul (0-0.6); ABS Lymphocytes 2.1 10^3/ul (1.0-4.8); ABS Monocytes 0.6 10^3/ul (0-0.8); ABS Neutrophils 8.3 10^3/ul (1.5-7.7); ABS Nucleated RBC 0 10^3/ul; Eosinophil % 2.1 % (0-6); Hematocrit 35 % (35-47); Hemoglobin 12.2 g/dl (12.0-16.0); Lymphocyte % 18.6 % (25-47); Mean Corpuscular HGB Conc 35 g/dl (31-36); Mean Corpuscular Hemoglobin 32 pg (27-31); Mean Corpuscular Volume 91 fL (80-97); Mean Platelet Volume 10.2 um3 (7.4-10.4); Nucleated Red Blood Cells % 0; Platelet Count 171 10^3/ul (150-450); Red Blood Count 3.86 10^6/ul (4.0-5.4); Red Cell Distribution Width 13 % (10.5-15); White Blood Count 11.4 10^3/ul (3.5-10.8)
[2017-08-12 17:30] LABS: Urine Appearance Clear; Urine Blood Negative (Negative); Urine Color Yellow; Urine Ketones Trace (Negative); Urine Protein Negative (Negative); Urine Specific Gravity 1.014 (1.010-1.030); Urine Urobilinogen Negative (Negative)
[2017-08-12 17:37] LABS: INR 0.96 (0.77-1.02)
[2017-08-12 17:49] LABS: EGFR Non-African American 142.5 (>60)
[2017-08-12] MEDS ORDERED: Acetaminophen TAB* 325 MG PO ONE (19:27)
--- NOTE | 2017-08-12 19:47 | RAD ---
Indication: Right costovertebral angle tenderness. Real-time sonography of the right kidney was performed. The right kidney measures 10.8 x 5.4 x 5.3 cm. There appears to be moderate degree of right hydronephrosis. No definite calculi is noted. It is felt that there is extrinsic compression of the ureter from . Evaluation of the urinary bladder demonstrates no ureteral jet from the right orifice. IMPRESSION: Moderate right hydronephrosis with no evidence of a right ureteral jet.
[2017-08-12] MEDS ORDERED: HYDROcodone/ACETAMIN 5-325 MG* 1 TAB PO ONE (20:12)
[2017-08-12] MEDS ORDERED: Ondansetron ODT TAB* 4 MG SL PRN (22:02)
[2017-08-12] MEDS ORDERED: Potassium Chlor TAB* 20 MEQ TAB.ER PO ONE (22:58)
[2017-08-12] MEDS ORDERED: Magnesium Sulfate 2 GM IV* 2 GM/50 ML BAG IVPB ONE (22:58)
[2017-08-12] MEDS ORDERED: Potassium Chloride LIQUID* 20 MEQ PACKET PO ONE (23:00)
--- NOTE | 2017-08-12 23:34 | ED ---
Rimma Castle Elizabeth, scribed for Bonnie Mauro MD on 08/12/17 at 1828 . GI/ HPI - HPI Summary HPI Summary: This patient is a 21 year old F who is estimated 17 weeks PG, presenting to [facility] via EMS with a chief complaint of bilateral flank pain since noon today. Patient notes that the pain is worse on the right side. The patient rates the pain 7/10 in severity. Symptoms aggravated by nothing. Symptoms alleviated by nothing. Patient reports sore throat, difficulty swallowing, vomiting, and diaphoresis. Patient denies vaginal bleeding or cough. Patient was admitted to [facility] on 08/07/17 for hydronephrosis and discharged on 08/10/17. Patient has a hx of kidney stones and was diagnosed with hydronephrosis. Presumptive dx was ureteral calculi, although stones were not seen in the ureter on US, only bilat in the kidney. She has not been straining her urine at home. During her previous stay at [facility], patient notes that her pain was previously alleviated with oxycodone. Since being discharged home, she has been taking Tylenol and her pain has not alleviated. Patient is 17 weeks with her first . Dr. Khan is her OB provider. On previous admission 08/07-01/18 pt had MRI, and surgical consult and appendicitis was also RO'd. - History of Current Complaint Chief Complaint: EDFlankPain Time Seen by Provider: 08/12/17 17:08 Stated Complaint: VOMITING KIDNEY STONE PREG Hx Obtained From: Patient, Medical Records - [facility] admission 08/07-01/18 Hx Last Menstrual Period: 04/07/17 Onset/Duration: Started Hours Ago - started at noon today, Atraumatic, Still Present Timing: Constant, Lasting Hours Severity: Moderate Current Severity: Moderate Number of Pads per Day: 0 Number of Pads per Hour: 0 Pain Intensity: 7 Location of Pain: Flank - bilateral flank pain, right worse Pain Characteristics: Sharp Associated Signs and Symptoms: Positive: Vomiting, Diaphoresis, Flank Pain Additional Signs & Symptoms: Positive: Positive Test - 17 weeks Aggravating Factor(s): Nothing Alleviating Factor(s): Nothing - Additional Pertinent History Primary Care Physician: ROS - Allergy/Home Medications Allergies/Adverse Reactions: Allergies Allergy/AdvReac Type Severity Reaction Status Date / Time No Known Allergies Allergy Verified 08/07/17 10:34 PMH/Surg Hx/FS Hx/Imm Hx Previously Healthy: No Endocrine/Hematology History: Denies: Hx Anticoagulant Therapy, Hx Blood Disorders, Hx Diabetes, Hx Thyroid Disease Cardiovascular History: Denies: Hx Pacemaker/ICD Respiratory History: Reports: Hx Seasonal Allergies Denies: Hx Asthma GI History: Denies: Hx Gall Bladder Disease, Hx Gastroesophageal Reflux Disease, Hx Hiatal Hernia, Hx Irritable Bowel, Hx Ulcer History: Reports: Hx Kidney Infection, Hx Kidney Stones, Other Problems/ Disorders - HX PCOS Musculoskeletal History: Reports: Other Musculoskeletal History - Lt foot fx Sensory History: Reports: Hx Contacts or Glasses Denies: Hx Hearing Aid Opthamlomology History: Reports: Hx Contacts or Glasses Neurological History: Reports: Other Neuro Impairments/Disorders - 5 concussions Psychiatric History: Reports: Hx Anxiety - no meds, has counselor - does not feel she's interactive, Hx Depression Denies: Hx Panic Disorder - Surgical History Surgery Procedure, Year, and Place: wisdom teeth extraction, t&a Infectious Disease History: No Infectious Disease History: Denies: Traveled Outside the [place] in Last 30 Days - Family History Known Family History: Positive: Unknown - Patient is adopted - Social History Lives: Alone Alcohol Use: None Hx Substance Use: No Substance Use Type: Reports: None Hx Tobacco Use: Yes - not currently Smoking Status (MU): Former Smoker Review of Systems Positive: Skin Diaphoresis Positive: Sore Throat Cardiovascular: Negative Negative: Cough Positive: Vomiting Positive: flank pain, other - NEGATIVE VAGINAL BLEEDING Skin: Negative Neurological: Negative Psychological: Normal All Other Systems Reviewed And Are Negative: Yes Physical Exam - Summary Physical Exam Summary: Appearance: Ill-appearing, moderate pain distress, Well-nourished, , diaphoretic Skin: Warm, color reflects adequate perfusion, diaphoretic Head: Normal Head/Face inspection, Atraumatic Eyes: Conjunctiva clear ENT: Normal inspection, TMs normal, pharynx red, no tonsilar swelling Neck: Supple, no nodes, no JVD. Respiratory: Lungs clear, Normal breath sounds, no respiratory distress Cardio: RRR, No murmur, pulses normal, brisk capillary refill Abdomen: soft, nontender, fundus 2 finger-breadths below umbilicus, HR 130 with doppler, positive right CVA tenderness Bowel sounds: present Musculoskeletal: Strength Intact/ ROM intact. No calf tenderness. No edema. Psychological: Normal Neuro: Alert, muscle tone normal, no focal deficit Triage Information Reviewed: Yes Vital Signs On Initial Exam: Initial Vitals Temp Pulse Resp BP Pulse Ox 98.6 F 110 16 121/69 100 18 16:51 18 16:51 08/12/17 16:51 18 16:51 08/12/17 16:51 Vital Signs Reviewed: Yes Diagnostics - Vital Signs Vital Signs Temp Pulse Resp BP Pulse Ox 08/12/17 16:51 98.6 F 110 16 121/69 100 - Laboratory Lab Results: Lab Results 08/12/17 08/12/17 08/12/17 Range/Units 17:19 17:19 17:19 WBC (3.5-10.8) 10^3/ul RBC (4.0-5.4) 10^6/ul Hgb (12.0-16.0) g/dl Hct (35-47) % MCV (80-97) fL MCH (27-31) pg MCHC (31-36) g/dl RDW (10.5-15) % Plt Count (150-450) 10^3/ul MPV (7.4-10.4) um3 Neut % (Auto) (38-83) % Lymph % (Auto) (25-47) % [place] % (Auto) (0-7) % Eos % (Auto) (0-6) % Baso % (Auto) (0-2) % Absolute Neuts (auto) (1.5-7.7) 10^3/ul Absolute Lymphs (auto) (1.0-4.8) 10^3/ul Absolute Monos (auto) (0-0.8) 10^3/ul Absolute Eos (auto) (0-0.6) 10^3/ul Absolute Basos (auto) (0-0.2) 10^3/ul Absolute Nucleated RBC 10^3/ul Nucleated RBC % INR (Anticoag Therapy) 0.96 (0.77-1.02) APTT 27.6 (26.0-36.3) seconds Sodium (139-145) mmol/L Potassium (3.5-5.0) mmol/L Chloride (101-111) mmol/L Carbon Dioxide (22-32) mmol/L Anion Gap (2-11) mmol/L BUN (6-24) mg/dL Creatinine (0.51-0.95) mg/dL Est GFR ( Amer) (>60) Est GFR (Non-Af Amer) (>60) BUN/Creatinine Ratio (8-20) Glucose (70-100) mg/dL Lactic Acid 0.8 (0.5-2.0) mmol/L Calcium (8.6-10.3) mg/dL Magnesium (1.9-2.7) mg/dL Total Bilirubin (0.2-1.0) mg/dL AST (13-39) U/L ALT (7-52) U/L Alkaline Phosphatase (34-104) U/L C-Reactive Protein (< 5.00) mg/L Total Protein (6.4-8.9) g/dL Albumin (3.2-5.2) g/dL Globulin (2-4) g/dL Albumin/Globulin Ratio (1-3) Lipase (11.0-82.0) U/L Urine Color Yellow Urine Appearance Clear Urine pH 7.0 (5-9) Ur Specific [place] 1.014 (1.010-1.030) Urine Protein Negative (Negative) Urine Ketones Trace A (Negative) Urine Blood Negative (Negative) Urine Nitrate Negative (Negative) Urine Bilirubin Negative (Negative) Urine Urobilinogen Negative (Negative) Ur Leukocyte Esterase Negative (Negative) Urine Glucose Negative (Negative) 08/12/17 08/12/17 Range/Units 17:20 17:20 WBC 11.4 H (3.5-10.8) 10^3/ul RBC 3.86 L (4.0-5.4) 10^6/ul Hgb 12.2 (12.0-16.0) g/dl Hct 35 (35-47) % MCV 91 (80-97) fL MCH 32 H (27-31) pg MCHC 35 (31-36) g/dl RDW 13 (10.5-15) % Plt Count 171 (150-450) 10^3/ul MPV 10.2 (7.4-10.4) um3 Neut % (Auto) 73.3 (38-83) % Lymph % (Auto) 18.6 L (25-47) % [place] % (Auto) 5.6 (0-7) % Eos % (Auto) 2.1 (0-6) % Baso % (Auto) 0.4 (0-2) % Absolute Neuts (auto) 8.3 H (1.5-7.7) 10^3/ul Absolute Lymphs (auto) 2.1 (1.0-4.8) 10^3/ul Absolute Monos (auto) 0.6 (0-0.8) 10^3/ul Absolute Eos (auto) 0.2 (0-0.6) 10^3/ul Absolute Basos (auto) 0 (0-0.2) 10^3/ul Absolute Nucleated RBC 0 10^3/ul Nucleated RBC % 0 INR (Anticoag Therapy) (0.77-1.02) APTT (26.0-36.3) seconds Sodium 135 L (139-145) mmol/L Potassium 3.3 L (3.5-5.0) mmol/L Chloride 104 (101-111) mmol/L Carbon Dioxide 22 (22-32) mmol/L Anion Gap 9 (2-11) mmol/L BUN 5 L (6-24) mg/dL Creatinine 0.54 (0.51-0.95) mg/dL Est GFR ( Amer) 183.3 (>60) Est GFR (Non-Af Amer) 142.5 (>60) BUN/Creatinine Ratio 9.3 (8-20) Glucose 71 (70-100) mg/dL Lactic Acid (0.5-2.0) mmol/L Calcium 9.1 (8.6-10.3) mg/dL Magnesium 1.7 L (1.9-2.7) mg/dL Total Bilirubin 0.60 (0.2-1.0) mg/dL AST 13 (13-39) U/L ALT 8 (7-52) U/L Alkaline Phosphatase 47 (34-104) U/L C-Reactive Protein 3.32 (< 5.00) mg/L Total Protein 6.4 (6.4-8.9) g/dL Albumin 3.9 (3.2-5.2) g/dL Globulin 2.5 (2-4) g/dL Albumin/Globulin Ratio 1.6 (1-3) Lipase 10 L (11.0-82.0) U/L Urine Color Urine Appearance Urine pH (5-9) Ur Specific [place] (1.010-1.030) Urine Protein (Negative) Urine Ketones (Negative) Urine Blood (Negative) Urine Nitrate (Negative) Urine Bilirubin (Negative) Urine Urobilinogen (Negative) Ur Leukocyte Esterase (Negative) Urine Glucose (Negative) Result Diagrams: 08/13/17 05:20 08/13/17 05:20 Lab Statement: Any lab studies that have been ordered have been reviewed, and results considered in the medical decision making process. - Additional Comments Diagnostic Additional Comments: Renal US: Interpreted by radiologist. IMPRESSION: Moderate right hydronephrosis with no evidence of a right ureteral jet. Dr. Mauro has reviewed this report. Re-Evaluation - Re-Evaluation first re-evaluation Re-Evaluation Time: 21:16 Change: Unchanged Comment: Discussed Dr. Nino's recommendations with patient. The patient expressed fear of taking care of herself as outpatient since she is still in pain and expressed desire to be admitted for pain management. GIGU Course/Dx - Course Course Of Treatment: Renal US reveals, per radiologist, moderate right hydronephrosis with no evidence of a right ureteral jet. Dr. Mauro has reviewed this radiology report. In the ED course the patient was given Tylenol, IV fluids, and hydrocodone. We discussed patient care with Dr. Soto and he advised no need for a transvaginal US and recommends consult with Dr. Norton. At 20:50, discussed care of patient with Dr. Norton who advised the patient go into a [id number] position for 20 minutes of every hour she is awake and advises patient call their office for a follow-up US. Dr. Norton notes that the patient is not a candidate for a stent. The patient was re-evaluated at 21:17, and Dr. Sue recommendations were relayed. The patient expressed fear of taking care of herself as outpatient since she is still in pain and expressed desire to be admitted for pain management. Discussed care of patient with Dr. Gonzales at 21:28, who agreed to admit patient. Patient is diagnosed with right hydronephrosis and flank pain and second trimester and will be admitted to [facility]. The patient is agreeable with this plan. - Diagnoses Differential Diagnoses - Female: , Pyelonephritis, Renal Calculi, Renal Colic Provider Diagnoses: Hydronephrosis, right, Flank pain, - Physician Notifications Discussed Care Of Patient With: Otoniel Gonzales Time Discussed With Above Provider: 21:28 Instructed by Provider To: Other - at 20:15, Dr. Soto advised there is no need for a transvaginal US and recommends consult with Dr. Norton. At 20:50, Dr. Norton advised the patient go into a [id number] position for 20 minutes of every hour she is awake and advises patient call their office for a follow-up US. Discussed care of patient at 21:[address] Gonzales, hospitalist, who agreed to admit the patient to [facility]. Discharge - Sign-Out/Discharge Documenting (check all that apply): Discharge/Admit/Transfer - Discharge Plan Condition: Stable Disposition: ADMITTED TO [facility] - Billing Disposition and Condition Condition: STABLE Disposition: HOSP-[facility] The documentation as recorded by the Rimma liang Elizabeth accurately reflects the service I personally performed and the decisions made by Nj iglesias Barbara J, MD.
[2017-08-12] MEDS: Acetaminophen TAB* 325 MG PO PRN (23:51)
--- NOTE | 2017-08-13 01:24 | HP ---
CC: Dr. Borges; Dr. Norton; Dr. Soto; Leta Cotto CNM * HISTORY AND PHYSICAL: DATE OF ADMISSION: 08/12/17 PRIMARY CARE PROVIDER: None. INFORMATION SECURITY ASSOCIATE: aliyah Macdonaldife. ATTENDING PHYSICIAN: Otoniel Gonzales MD * (dictated by Ellen Artis NP) CHIEF COMPLAINT: Back pain and right kidney pain. HISTORY OF PRESENT ILLNESS: Ms. Jerez is a 21-year-old female with no significant past medical history other than nephrolysis who is 18 weeks , who initially presented to the emergency room on 08/07/17 with complaints of severe abdominal pain mostly in her back and right lower quadrant but also on the left side as well. The patient had noticed some blood that she felt was in her urine. She was denying any fevers or chills. Pain was coming and going in waves. She was nauseous, but did not vomit. This was not getting any better. She decided to present to the emergency room. The patient was seen in the emergency room in consultation by Dr. Frerie with Surgery, who recommended an MRI of her abdomen to rule out acute appendicitis. The patient's MRI showed "trace fluid adjacent to the cecum and the appendix, the appendix was otherwise normal in appearance and normal in size. Acute appendicitis appears to be unlikely from the imaging perspective. [id number] right-sided hydronephrosis." The patient was also seen in consultation by Dr. Soto, because she was , in addition to Dr. Borges with Urology. At that time, it was felt to do conservative management, observe the patient, and provide pain medications as needed. The plan was that if she showed more findings of a right obstructive uropathy that she would proceed for ureteroscopy and stent placement. The patient was then discharged on 08/10/17 with plans to follow up with her campus director and Dr. Borges if needed. The patient states that she was feeling well yesterday and decided to go for a walk today. She states that while going for a walk today, she developed back pain in addition to right lower quadrant pain. Again, she denies any recent fevers, chills, chest pain, shortness of breath, nausea, vomiting, urinary symptoms such as dysuria or frequency. Due to the significance of her pain, she decided to come back to the emergency room for further evaluation. While in the emergency room, the patient had a renal ultrasound showing moderate right hydronephrosis with no evidence of a right ureteral jet. The emergency room contacted Dr. Norton who was bone char puller for Urology, who recommended the patient be admitted overnight with a repeat ultrasound in the morning. Dr. Soto, bone char puller with Obstetrics, who has previously seen the patient on her last admission was aware of the patient being admitted, but didn't formally consult. Hospitalists were asked to evaluate the patient for admission. PAST MEDICAL HISTORY: 1. Nephrolysis. 2. history, G3, P1. PAST SURGICAL HISTORY: 1. Status post tonsillectomy. 2. Status post wisdom tooth extraction. MEDICATIONS: Home medications include: 1. vitamin 1 tablet oral daily. 2. Acetaminophen 650 mg oral every 6 hours as needed for pain. ALLERGIES: No known drug allergies. FAMILY HISTORY: The patient is unaware of her family history as she is adopted. SOCIAL HISTORY: The patient denies tobacco, recreational drugs, or alcohol use. She would like her father Prery Jerez to be her surrogate decision maker in the event she is unable to make decisions for herself. REVIEW OF SYSTEMS: I performed an 11-point review of systems. All the pertinent positives and negatives are mentioned in the history of present illness. The remaining review of systems is negative with the exception of the patient complaining of some throat discomfort last evening that she describes as having difficulty swallowing; this has since resolved. PHYSICAL EXAMINATION GENERAL APPEARANCE: The patient is alert, pleasant, and appears to be in no acute distress. VITAL SIGNS: Temperature 98.6, heart rate 110, respiratory rate 16, O2 sat 100 % on room air, blood pressure 121/69. HEENT: Normocephalic, atraumatic. Pupils are equal and reactive to light. Extraocular movements are intact. RESPIRATORY: There is no accessory muscle use. The lungs are clear to auscultation bilaterally. CARDIOVASCULAR: Regular rate and rhythm. S1 and S2 present. There are no murmurs, rubs, or gallops heard. ABDOMEN: Soft, nontender, nondistended. The patient has some tenderness in her right lower quadrant and right CVA tenderness. EXTREMITIES: There is no lower extremity edema. DP and PT pulses are 2+ and symmetric. MUSCULOSKELETAL: There is no clubbing or cyanosis noted. NEUROLOGICAL: The patient is alert and oriented x4. Cranial nerves II through XII are grossly intact. PSYCHOLOGICAL: The patient is calm and cooperative. SKIN: There are no rashes or abnormalities seen. DIAGNOSTIC STUDIES/LAB DATA: Sodium 135, potassium 3.3, chloride 104, CO2 22, BUN 5, creatinine 0.54, glucose 71, magnesium 1.7. White blood cell count 11.4 , hemoglobin 12.2, hematocrit 35, platelet count 171. Urinalysis negative. Influenza A and B negative. Renal ultrasound from today. Radiologist's impression: Moderate right hydronephrosis with no evidence of a right ureteral jet. IMPRESSION AND PLAN: Ms. Jerez is a 21-year-old female with past medical history significant for nephrolysis, who presented to the emergency room with complaints of right flank pain and back pain and is 18 weeks . She will be admitted as an observation for hydronephrosis. 1. [address]. [address]. Norton is aware of the patient and he will see the patient in the morning. I suspected that her hydronephrosis is secondary to her uterus being tipped and obstructing her right ureter. Dr. Norton has recommended the patient place her "knee to her chest" for 20 minutes every hour overnight and have a repeat ultrasound in the morning to see if this moves her uterus and her hydronephrosis is improving. She will have Tylenol for pain control. We are going to avoid narcotics if possible. She will have Zofran as needed for any nausea. She does not appear to have an infection at this time. We will strain all urine to monitor for possible kidney stones. 2. Electrolyte abnormalities. The patient has hypokalemia and hypomagnesium. Going to give her some replacement today and recheck her labs in the morning. 3. . The patient is just over 18 weeks . SENIOUR INSIGHT MANAGER is aware of her being here. We will consider contacting them in the morning if we need their assistance. She will have heart tones every shift. We will ensure that any medications she gets are safe with . 4. Fluids, electrolytes, and nutrition. The patient will have a regular diet. She will be n.p.o. after midnight for her ultrasound in the morning in the event that she needs to have a procedure. 5. Code status. Full code. 6. DVT prophylaxis. She is at low risk and will be encouraged to ambulate. If she is unable to ambulate, she will have SCDs. 7. Disposition. Observation. TIME SPENT: Time for this admission was approximately 60 minutes; greater that half of that was spent with the patient discussing medications, past medical history, the events leading up to her arrival today, and performing a physical examination. The case has been reviewed with the attending, Dr. Gonzales, who agrees with the plan of care. Reviewed by DASIA COSTELLO 08/13/17 1326 [id number]/[facility] #: [id number] RONALD
[2017-08-13] MEDS: Acetaminophen TAB* 325 MG PO PRN ×2 (04:10→08:35)
[2017-08-13 05:31] LABS: ABS Basophils 0.1 10^3/ul (0-0.2); ABS Eosinophils 0.3 10^3/ul (0-0.6); ABS Lymphocytes 2.5 10^3/ul (1.0-4.8); ABS Monocytes 0.6 10^3/ul (0-0.8); ABS Neutrophils 4.9 10^3/ul (1.5-7.7); ABS Nucleated RBC 0 10^3/ul; Eosinophil % 4.1 % (0-6); Hematocrit 30 % (35-47); Hemoglobin 10.5 g/dl (12.0-16.0); Lymphocyte % 29.9 % (25-47); Mean Corpuscular HGB Conc 35 g/dl (31-36); Mean Corpuscular Hemoglobin 32 pg (27-31); Mean Corpuscular Volume 90 fL (80-97); Mean Platelet Volume 10.2 um3 (7.4-10.4); Nucleated Red Blood Cells % 0.1; Platelet Count 155 10^3/ul (150-450); Red Blood Count 3.34 10^6/ul (4.0-5.4); Red Cell Distribution Width 13 % (10.5-15); White Blood Count 8.4 10^3/ul (3.5-10.8)
[2017-08-13 05:57] LABS: EGFR Non-African American 148.9 (>60)
[2017-08-13] MEDS ORDERED: Prenatal Vitamin TAB PO SCH (09:00)
[2017-08-13] MEDS ORDERED: [UNRECOGNIZED DRUG - REMARK] PO SCH (09:00)
--- NOTE | 2017-08-13 09:51 | RAD ---
Indication: Evaluate hydronephrosis. Real-time sonography of the right kidney was performed. The right kidney measures 11.4 x 5.3 x 5.1 cm with moderate degree of hydronephrosis. This appears to be similar to that seen previously. Evaluation of the urinary bladder demonstrates bilateral ureteral jets. IMPRESSION: Right hydronephrosis is unchanged. On the current study right ureteral jet could be identified.
--- NOTE | 2017-08-13 14:21 | CONSULT ---
Consult Consult: OB brief consult S) Pt at about 18 wks EGA, admitted last week for pain mgmt for presumed kidney stones. Went home after a couple days. Returned last night with similar pain, primarily right sided this time ( previously bilateral). Initial U/S showed no ureteral jet on the right. Repeated this AM and there are bilat jets again. No stones were seen on U/S (previously seen in both kidneys, though). Pt has been doing a knee-chest position a few times per hour to help. She reports pain is improved right now and would like to go home. O) VS normal, afebrile Normal FHR (q shift) Gen: comfortable appearing, NAD A) 18 wks EGA with kidney stones vs ureteral kinking from gravid uterus. I tend to doubt the kinking issues partly because she has a strong history of stones and she recently had bilateral pains. Also, 17 weeks is very early to see that sort of symptom. It is typically later when the uterus is larger and more rotated. P) Pt desires discharge which seems reasonable considering her pain is greatly improved and she is not taking any narcotics anyway. She has follow up scheduled with her OB provider in about 10 days already. Thank you for this consult.
[2017-08-13 15:45] VITALS: BP 100/53
--- NOTE | 2017-08-13 21:52 | DS ---
CC: Christiano Khan MD * DISCHARGE SUMMARY: DATE OF ADMISSION: 08/12/17 DATE OF DISCHARGE: 08/13/17 PRIMARY CARE PROVIDER: Christiano Khan MD PRIMARY DIAGNOSIS: Pain with concern for increasing hydronephrosis. SECONDARY DIAGNOSES: Include: 1. Nephrolithiasis. 2. history, G3, P1, currently 18 weeks . MEDICATIONS AT DISCHARGE: Include: 1. Tylenol 650 mg every 4 hours as needed for pain. 2. multivitamin 1 tab daily. 3. Zofran ODT 4 mg every 6 hours as needed for vomiting. PERTINENT IMAGING STUDIES: Include renal ultrasound, impression: Moderate hydronephrosis with no evidence of right ureteral jet. Repeated approximately 12 hours later, official impression is right hydronephrosis is unchanged. On the current study, right ureteral jet could be identified. This imaging was reviewed by Dr. Norton, who disagrees with the official reading and thinks that the hydronephrosis is slightly improved from admission and improved from previous study from 08/09/17. CONSULTATIONS DURING THIS HOSPITAL STAY: Include Urology and HOT ROLL LAMINATOR. HISTORY OF PRESENT ILLNESS AND HOSPITAL COURSE: This is a 21-year-old female with past medical history as outlined in the history of present illness on the day of admission, presented to the hospital and admitted recently from 08/07/17 to 08/10/17 with similar problems of flank pain. There was concern for nephrolithiasis at that time; however, no intervention needed. The patient was discharged home, returned with flank pain again alternating left or right, radiating up her back. On the day of discharge she was seen in the morning, she had left-sided flank pain described as radiating up the middle of her back and in the evening it was right-sided flank pain radiating up the middle of her back. She describes the pain as lasting for about 5 to 10 minutes before being relieved. Things that improved the pain include hot showers and/or changes in position. She has had some nausea, but no vomiting since admission, tolerating her diet well. She was seen by Dr. Soto as well as Dr. Norton. In Dr. Norton's opinion, he does not think this is nephrolithiasis in conjunction with imaging, clinical presentation. He does not plan on any intervention. He believes that the repeat imaging has showed improvement since previous ultrasound of her kidneys and that it is likely physiologic hydronephrosis in the setting of . The patient is requesting discharge at this time as her pain is well controlled. She was counseled by Dr. Soto that her pain will likely continue throughout her and she feels okay with this. She has currently not been using Tylenol during the course of her hospital stay as she is encouraged to use it for pain as it presents. She was counseled for concerning symptoms to return to the hospital including worsening pain, chest pain, shortness of breath, nausea, vomiting, lightheadedness, loss of consciousness or near loss of consciousness, bleeding from any source, decreased urination, changes in her urinary frequency or any urinary urgency or hesitancy. She acknowledged understanding. TIME SPENT: Greater than 30 minutes were spent on the discharge of the patient , greater than half was spent [id number] with the patient. [id number]/[facility] #: [id number] RONALD
== END 2017-08-13 16:30 | disposition home or self-care (01) ==
LOC: ED 16:39 → SSU 21:53
PROVIDERS: ADMIT Hospitalist; ATTEND Internal Medicine
DX: N13.30 Unspecified hydronephrosis (principal); O99.89 Other specified diseases and conditions complicating pregnancy, childbirth and the puerperium; Z3A.18 18 weeks gestation of pregnancy; N20.0 Calculus of kidney
CPT/HCPCS: 36415; 76775; 80048; 80053; 81003; 83605; 83690; 83735; 85025; 85610; 85730; 86140; 87502; 87651; 96374; 99283; A9270-GY; G0378; J3475

== ENCOUNTER 2017-09-04 10:40 | Emergency (ER) | payer OTHER ==
[2017-09-04] MEDS ORDERED: Nitroglycerin TAB 0.4 MG* 0.4 MG TAB SL ONE (11:06)
[2017-09-04] MEDS ORDERED: NS 0.9% 1000 ML* 1,000 ML IV ONE (11:10)
[2017-09-04 11:32] LABS: ABS Basophils 0.1 10^3/ul (0-0.2); ABS Eosinophils 0 10^3/ul (0-0.6); ABS Lymphocytes 2.1 10^3/ul (1.0-4.8); ABS Monocytes 0.5 10^3/ul (0-0.8); ABS Neutrophils 9.5 10^3/ul (1.5-7.7); ABS Nucleated RBC 0 10^3/ul; Eosinophil % 0.4 % (0-6); Hematocrit 31 % (35-47); Hemoglobin 10.8 g/dl (12.0-16.0); Lymphocyte % 17.2 % (25-47); Mean Corpuscular HGB Conc 34 g/dl (31-36); Mean Corpuscular Hemoglobin 31 pg (27-31); Mean Corpuscular Volume 91 fL (80-97); Mean Platelet Volume 10.3 um3 (7.4-10.4); Nucleated Red Blood Cells % 0; Platelet Count 176 10^3/ul (150-450); Red Blood Count 3.47 10^6/ul (4.0-5.4); Red Cell Distribution Width 13 % (10.5-15); White Blood Count 12.2 10^3/ul (3.5-10.8)
[2017-09-04 11:50] LABS: EGFR Non-African American 136.7 (>60)
[2017-09-04] MEDS ORDERED: Potassium Chlor TAB* 20 MEQ TAB.ER PO ONE (13:27)
[2017-09-04] MEDS ORDERED: Magnesium Oxide TAB* 400 MG PO ONE (13:27)
[2017-09-04 13:31] VITALS: BP 110/60
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
== END 2017-09-04 13:39 | disposition home or self-care (01) ==
LOC: ED 10:40
DX: O26.892 Other specified pregnancy related conditions, second trimester (principal); R55 Syncope and collapse; Z3A.21 21 weeks gestation of pregnancy; Z87.442 Personal history of urinary calculi; F41.9 Anxiety disorder, unspecified; Z72.0 Tobacco use
CPT/HCPCS: 36415; 80053; 83735; 84443; 84484; 85025; 93005; 96360; 96361; 99283; A9270-GY

== ENCOUNTER 2018-01-06 16:41 | Inpatient (IN) | payer MEDICAID, OTHER ==
[2018-01-06] MEDS ORDERED: Nalbuphine* 10 MG/ML 1 ML VIAL IM PRN (20:57)
[2018-01-06] MEDS ORDERED: Promethazine INJ(RESTRICTED)* 25 MG/ML 1 ML VIAL IM PRN (20:57)
[2018-01-06] MEDS ORDERED: Nalbuphine* 10 MG/ML 1 ML VIAL ONE (21:06)
[2018-01-06] MEDS ORDERED: Promethazine INJ(RESTRICTED)* 25 MG/ML 1 ML VIAL ONE (21:07)
--- NOTE | 2018-01-06 21:37 | HP ---
General Information - Reason for Visit contractions - General Information Maternal Age: 22 Grav: 1 Para: 0 SAB: 0 IEA: 0 Estimated Due Date: 01/15/18 Determined By: LMP Maternal Blood Type and Rh: O Negative - Results this Serology/RPR Result: Non-Reactive Rubella Result: Immune HBsAg Result: Negative HIV Result: Negative GBS Culture Result: Negative Past Medical History Delivery History: See Records Pertinent Past Medical History: See Records - kidney stones Pertinent Past Surgical History: None Pertinent Family History: Non-Contributory - Antepartal Records Antepartal Records: Reviewed, Complicated by: - polyhydramnios ( resolved), heart arrythmia (resolved), kidney stones (resolved), threatened labor Review of Systems Constitutional: Uncomfortable CV Complaint: No Respiratory: Shortness of Breath: No Gastrointestinal: No Nausea/Vomiting, Normal Bowel Movement Genitourinary: No Dysuria, No Bleeding, No Leaking Fluid Musculoskeletal: Contractions Neurological: No Headache, No Visual Changes Movement: Normal Exam Allergies/Adverse Reactions: Allergies No Known Allergies Allergy (Verified 10/20/17 01:32) BP: 125/73, P:68, R:20 - Measurements Height: 5 ft 3 in Weight: 148 lb Weight in lbs: [id number] Body Mass Index (BMI): 26.2 Pre- Weight: 115 lb Weight Gained This : 33 lbs and 0 ozs - Exam Breast: Breast Exam Deferred CVA: No CVA Tenderness Extremities: No Edema Heart: Normal Rhythm/Heart Sounds HEENT: No Significant Findings Lungs: Clear Bilaterally Rectal: Rectal Exam Deferred Reflexes: DTR 2+ Thyroid: No Thyromegaly - Abdominal Exam Abdomen Exam: Fundal Height Consistent with Dates - Ultrasound/Biophysical Profile Ultrasound Status: Not Done Targeted Exam Findings Estimated Weight: 7lbs Cervical Exam: 2cm Effacement: 80% Station: -2 Presenting Part: Vertex Membrane Status: Bulging Bleeding/Discharge: None EFM Findings - External Monitor Findings Baseline Heart Rate: 135 External Monitor Findings: Accelerations Present, No Pattern of Variable or Late Decelerations, Variability Moderate, Baseline Stable Contractions: Irregular, Mild, < 45 Seconds, 45-90 Seconds Assessment/Plan - Assessment 22 y.o. , early labor - Plan Plan: Observe - Date/Time of Admission Date of Admission: 01/06/18 Time of Admission: 19:00
--- NOTE | 2018-01-06 21:43 | PN ---
Progress Note - Progress Note Date of Service: 01/06/18 SOAP: Subjective: [Pt increasingly uncomfortable. Pt c/o contractions closer together and more intense. -LOF, -VB, +FM. Pt requests pain medication.] Objective: [BP: 134/89, P:109 NST: baseline 135bpm, +accels, -decels, moderate variability cervix: 5cm/100/-1] Assessment: [22 y.o. active labor] Plan: [1) Nubain and phenergan 2) therapeutic support 3) anticipate vaginal delivery]
[2018-01-06] MEDS ORDERED: OBEPIDURAL* 250 ML EPIDURAL ONE (22:20)
[2018-01-06] MEDS ORDERED: fentaNYL* 50 MCG/ML 2 ML VIAL (100 MCG VIAL) ONE (22:25)
[2018-01-06] MEDS ORDERED: fentaNYL* 50 MCG/ML 2 ML VIAL (100 MCG VIAL) IV SLOW PU ONE (22:58)
[2018-01-06] MEDS ORDERED: Phenylephrine IV* 40 MCG/ML 10 ML SYRINGE IV PUSH PRN ×2 (22:59)
[2018-01-06] MEDS ORDERED: Sodium Citrate/Citric Acid* 15 ML UDC PO PRN (22:59)
[2018-01-06] MEDS ORDERED: EPHEDrine (Pressors)* 50 MG/ML VIAL IV PUSH PRN ×2 (22:59)
[2018-01-06] MEDS ORDERED: Famotidine TAB* 20 MG PO PRN (22:59)
[2018-01-06] MEDS ORDERED: OBEPIDURAL* 250 ML EPIDURAL SCH (23:00)
[2018-01-06 23:30] LABS: ABS Basophils 0.1 10^3/ul (0-0.2); ABS Eosinophils 0.1 10^3/ul (0-0.6); ABS Lymphocytes 2.4 10^3/ul (1.0-4.8); ABS Monocytes 0.8 10^3/ul (0-0.8); ABS Neutrophils 15.8 10^3/ul (1.5-7.7); ABS Nucleated RBC 0 10^3/ul; Eosinophil % 0.3 % (0-6); Hematocrit 35 % (35-47); Hemoglobin 11.6 g/dl (12.0-16.0); Lymphocyte % 12.5 % (25-47); Mean Corpuscular HGB Conc 33 g/dl (31-36); Mean Corpuscular Hemoglobin 27 pg (27-31); Mean Corpuscular Volume 80 fL (80-97); Mean Platelet Volume 10.6 um3 (7.4-10.4); Nucleated Red Blood Cells % 0.2; Platelet Count 202 10^3/ul (150-450); Red Blood Count 4.37 10^6/ul (4.00-5.40); Red Cell Distribution Width 14 % (10.5-15); White Blood Count 19.1 10^3/ul (3.5-10.8)
[2018-01-07] MEDS ORDERED: Oxytocin in LR* 20 UNITS/1,000 ML BAG IVPB ONE (01:24)
[2018-01-07] MEDS ORDERED: Dibucaine 1% 28.35 GM TUBE PR PRN (02:46)
[2018-01-07] MEDS ORDERED: Witch Hazel PAD* JAR TOPICAL PRN (02:46)
[2018-01-07] MEDS ORDERED: Glycerin ADULT SUPP PR PRN (02:46)
--- NOTE | 2018-01-07 02:52 | PROCNOTE ---
[facility] OB: Delivery Note - Delivery A Date of : 01/07/18 Time of : 02:21 Sex: Male Score 1 Minute: 8 Score 5 Minutes: 9 Gestational Age in Weeks and Days at Delivery: 38 Weeks and 6 Days Delivery Method: Spontaneous Vaginal Did Patient attempt ?: N/A, No Previous Amniotic Fluid: Clear Anesthesia/Analgesia: IM/IV, CEI for Labor Delivered By: Leta oCtto - Nursery Level of Nursery: Regular/Bedside - Perineum Perineal Injury: Periurethral Laceration, Perineal Laceration, 1st Degree Perineal Repair: By Delivering Practioner - Events Delivery Events of Note: Pitocin Only After Delivery
[2018-01-07] MEDS ORDERED: Oxytocin in LR* 20 UNITS/1,000 ML BAG IVPB SCH (03:00)
[2018-01-07] MEDS: Ibuprofen TAB* 600 MG PO PRN ×2 (05:57→19:59)
[2018-01-07] MEDS ORDERED: Simethicone TAB* 80 MG TAB.CHEW PO SCH (08:30)
[2018-01-07] MEDS: Docusate CAP* 100 MG PO SCH ×3 (08:45→21:20)
[2018-01-08] MEDS: Ibuprofen TAB* 600 MG PO PRN ×4 (02:47→21:13)
[2018-01-08 06:24] LABS: ABS Basophils 0.2 10^3/ul (0-0.2); ABS Eosinophils 0.3 10^3/ul (0-0.6); ABS Lymphocytes 3.2 10^3/ul (1.0-4.8); ABS Monocytes 0.8 10^3/ul (0-0.8); ABS Neutrophils 8.5 10^3/ul (1.5-7.7); ABS Nucleated RBC 0 10^3/ul; Eosinophil % 2.1 % (0-6); Hematocrit 28 % (35-47); Hemoglobin 9.2 g/dl (12.0-16.0); Lymphocyte % 24.6 % (25-47); Mean Corpuscular HGB Conc 33 g/dl (31-36); Mean Corpuscular Hemoglobin 26 pg (27-31); Mean Corpuscular Volume 79 fL (80-97); Mean Platelet Volume 9.5 um3 (7.4-10.4); Nucleated Red Blood Cells % 0.2; Platelet Count 166 10^3/ul (150-450); Red Blood Count 3.52 10^6/ul (4.00-5.40); Red Cell Distribution Width 14 % (10.5-15); White Blood Count 12.9 10^3/ul (3.5-10.8)
[2018-01-08] MEDS: Acetaminophen TAB* 325 MG PO PRN ×2 (07:52→15:15)
[2018-01-08] MEDS: Ferrous Gluconate TAB* 324 MG TAB PO SCH ×2 (08:55→21:13)
[2018-01-08] MEDS: Docusate CAP* 100 MG PO SCH ×3 (08:56→21:13)
[2018-01-08] MEDS ORDERED: RHO D Immune Globulin (HUMAN)* 300 MCG = 1,500 I.U. INJ IM ONE (13:37)
[2018-01-08 20:58] VITALS: BP 116/72
[2018-01-09] MEDS ORDERED: Lidocaine 2% VISCOUS* 15 ML UDC ONE (01:36)
[2018-01-09] MEDS: Ferrous Gluconate TAB* 324 MG TAB PO SCH (09:02)
[2018-01-09] MEDS: Docusate CAP* 100 MG PO SCH (09:02)
[2018-01-09] MEDS: Ibuprofen TAB* 600 MG PO PRN (10:35)
== END 2018-01-09 11:13 | disposition home or self-care (01) | DRG 560 ==
LOC: MCHOBOUT 16:41 → MCHOB 18:51
PROVIDERS: ADMIT Midwife; ATTEND Midwife
PROC: 10E0XZZ Delivery of Products of Conception, External Approach (ICD-10-PCS; principal; 2018-01-07)
PROC: 10907ZC Drainage of Amniotic Fluid, Therapeutic from Products of Conception, Via Natural or Artificial Opening (ICD-10-PCS; 2018-01-07)
PROC: 0HQ9XZZ Repair Perineum Skin, External Approach (ICD-10-PCS; 2018-01-07)
PROC: 4A1HXCZ Monitoring of Products of Conception, Cardiac Rate, External Approach (ICD-10-PCS; 2018-01-07)
PROC: 0UQMXZZ Repair Vulva, External Approach (ICD-10-PCS; 2018-01-07)
DX: O70.0 First degree perineal laceration during delivery (principal); Z37.0 Single live birth; Z3A.38 38 weeks gestation of pregnancy; O90.81 Anemia of the puerperium; Z87.442 Personal history of urinary calculi; O71.82 Other specified trauma to perineum and vulva
CPT/HCPCS: 36415; 85025; 85461; 86850; 86900; 86901; A9270-GY; J2300; J2550; J2790; J3010

== ENCOUNTER 2018-04-20 13:50 | Emergency (ER) | payer OTHER ==
[2018-04-20 13:56] VITALS: BP 106/62
--- NOTE | 2018-04-20 14:02 | UC ---
FLU HPI - HPI Summary HPI Summary: 22 y/o female presents to the urgent care c/o nasal congestion w/ clear nasal discharge , JACOB, body aches, for the past 2 days. Pt reports her pain is 8/10 and it even hurts to carry her 3 month old baby. Pt states She has had 2 episodes of N/V since yesterday. Las episode this morning. 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 She had chills last night, but didn't take her temperature. Pt denies dizziness, JACOB, SOB, chest pain, abdominal pain , diarrhea or constipation. - History of Current Complaint Chief Complaint: UCGeneralIllness Stated Complaint: VOMITING,BODYACHES Time Seen by Provider: 04/20/18 14:01 Hx Obtained From: Patient Hx Last Menstrual Period: 04/07/17 Onset/Duration: Gradual Onset, Lasting Days - 2 days, Still Present Severity Currently: Moderate Severity Initially: Mild Pain Intensity: 8 Pain Scale Used: 0-10 Numeric Associated Signs & Symptoms: Positive: Fever - subjective at home, Myalgia, Nasal Congestion - clear, Headache, Vomiting. Negative: Diarrhea - Risk Factors Influenza Risk Factors: Negative - Allergy/Home Medications Allergies/Adverse Reactions: Allergies Allergy/AdvReac Type Severity Reaction Status Date / Time No Known Allergies Allergy Verified 04/20/18 13:56 PMH/Surg Hx/FS Hx/Imm Hx Previously Healthy: Yes - Pt denies PMHX Other History Of: Negative For: Anticoagulant Therapy - Surgical History Surgical History: Yes Surgery Procedure, Year, and Place: wisdom teeth extraction, t&a - Family History Known Family History: Positive: Unknown - Patient is adopted - Social History Occupation: Unemployed Lives: With Family Alcohol Use: None Substance Use Type: Marijuana Substance Use Comment - Amount & Last Used: PT states she stopped when she got (marijuana)not smoking now Smoking Status (MU): Never Smoked Tobacco - Immunization History Most Recent Influenza Vaccination: none Most Recent Pneumonia Vaccination: none Review of Systems All Other Systems Reviewed And Are Negative: Yes Constitutional: Positive: Chills, Fatigue, Other - body aches Skin: Positive: Negative Eyes: Positive: Negative ENT: Positive: Nasal Discharge - clear, Sinus Congestion, Sinus Pain/Tenderness Respiratory: Positive: Cough - dry Cardiovascular: Positive: Negative Gastrointestinal: Positive: Negative Genitourinary: Positive: Negative Motor: Positive: Negative Neurovascular: Positive: Negative Musculoskeletal: Positive: Myalgia Neurological: Positive: Headache Psychological: Positive: Negative Is Patient Immunocompromised?: No Physical Exam - Summary Physical Exam Summary: VITAL SIGNS: Reviewed. GENERAL: Patient is a well developed and nourished female who is sitting comfortable in the examining table. Patient is not in any acute respiratory distress. HEAD AND FACE: No signs of trauma. No ecchymosis, hematomas or skull depressions. No sinus tenderness. EYES: PERRLA, EOMI x 2, No injected conjunctiva, no nystagmus. No photophobia. EARS: Hearing grossly intact. Ear canals and tympanic membranes are within normal limits. Nose: edematous and erythematous nasal mucosa w/ clear nasal discharge. MOUTH: Positive no erythema, no tonsillar enlargement. Uvula in midline. NECK: Supple, trachea is midline, Positive anterior cervical lymphadenopathy, no JVD, no carotid bruit, no c-spine tenderness, neck with full ROM. No meningeal signs, no Kernig's or brudzinskis signs. CHEST: Symmetric, no tenderness at palpation LUNGS: Clear to auscultation bilaterally. No wheezing or crackles. CVS: Regular rate and rhythm, S1 and S2 present, no murmurs or gallops appreciated. ABDOMEN: Soft, non-tender. No signs of distention. No rebound no guarding, and no masses palpated. Bowel sounds are normal. EXTREMITIES: FROM in all major joints, no edema, no cyanosis or clubbing. NEURO: Alert and oriented x 3. No acute neurological deficits. Speech is normal and follows commands. SKIN: Dry and warm Triage Information Reviewed: Yes Vital Signs: Initial Vital Signs Temp 98.7 F 04/20/18 13:54 Pulse 88 04/20/18 13:54 Resp 17 04/20/18 13:54 BP 106/62 04/20/18 13:54 Pulse Ox 100 04/20/18 13:54 Flu Course/Dx - Course Course Of Treatment: 22 y/o female presents to the urgent care c/o nasal congestion w/ clear nasal discharge , JACOB, body aches, for the past 2 days. Pt reports her pain is 8/10 and it even hurts to carry her 3 month old baby. Pt states She has had 2 episodes of N/V since yesterday. Las episode this morning. 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 She had chills last night, but didn't take her temperature. Pt denies dizziness, JACOB, SOB, chest pain, abdominal pain, diarrhea or constipation. Hx obtained. Pt w/ URI on examination. Rapid influenza A&B ordered:negative. Pt given at the clinic Ibuprofen PO,Zofran PO and famotidine PO by nurse to alleviate symptoms. Pt felt better after 30 min. Pt Rx same medications as directed below. Advised on hand washing. Pt advised to rest, increase fluid intake, eat well and avoid strenuous exercise. If symptoms do not improve or worsen advised to return to the urgent care or f/u with her PCP for further evaluation and treatment. Pt understood and agreed with plan of care. - Differential Dx/Diagnosis Differential Diagnosis/HQI/PQRI: Bronchitis, Influenza, Upper Respiratory Infection Provider Diagnosis: Viral syndrome, Nausea and vomiting Discharge - Sign-Out/Discharge Documenting (check all that apply): Patient Departure - D/C home All imaging exams completed and their final reports reviewed: No Studies - Discharge Plan Condition: Stable Disposition: HOME Prescriptions: Famotidine TAB* [Pepcid 20 MG TAB*] 20 mg PO DAILY #30 tab Ibuprofen TAB* [Motrin TAB* 600 MG] 600 mg PO Q6H PRN #30 tab PRN Reason: Pain Ondansetron ODT TAB* [Zofran 4 MG Odt TAB*] 4 mg PO Q6H PRN #10 tab.odt PRN Reason: Vomiting Patient Education Materials: Acute Nausea and Vomiting (ED), Viral Syndrome (ED ) Forms: *Work Release Referrals: Christiano Khan MD [Primary Care Provider] - 3 Days Additional Instructions: 1-Please take ibuprofen PO q6-8hrs prn as instructed after meals to alleviate pain and swelling. Increase fluid intake, eat well, rest and avoid strenuous exercise 2- Take Zofran PO and Famotidine PO and directed if vomiting continues. First dose givne at the clinic today. 3-If symptoms do not improve or worsen please return to the urgent care or f/u with your PCP in 3 days for further evaluation and treatment. - Billing Disposition and Condition Condition: STABLE Disposition: Home - Attestation Statements Provider Attestation: Per institutional requirements, I have reviewed the chart, however, I was not consulted specifically or made aware of this patient by the midlevel provider. I did not personally evaluate, interact with , or disposition this patient.
[2018-04-20] MEDS ORDERED: Ondansetron ODT TAB* 4 MG PO ONE (14:16)
[2018-04-20] MEDS ORDERED: Famotidine TAB* 20 MG PO ONE (14:16)
[2018-04-20] MEDS ORDERED: Ibuprofen TAB* 600 MG PO ONE (14:17)
== END 2018-04-20 14:50 | disposition home or self-care (01) ==
LOC: UCEAST 13:50
DX: B34.9 Viral infection, unspecified (principal); R11.2 Nausea with vomiting, unspecified
CPT/HCPCS: 99212; A9270-GY; G0463

== ENCOUNTER 2018-10-06 12:28 | Emergency (ER) | payer OTHER ==
[2018-10-06 13:49] LABS: Urine Appearance Cloudy; Urine Bilirubin Negative (Negative); Urine Blood Negative (Negative); Urine Color Yellow; Urine Glucose Negative (Negative); Urine Ketones Negative (Negative); Urine Nitrite Negative (Negative); Urine Protein Negative (Negative); Urine Specific Gravity 1.021 (1.010-1.030); Urine Urobilinogen Negative (Negative)
[2018-10-06] MEDS ORDERED: Acetaminophen TAB* 325 MG PO ONE (14:48)
--- NOTE | 2018-10-06 15:10 | ED ---
GI/ HPI - HPI Summary HPI Summary: Patient presents with what she believes to be kidney stones. Reports she gets these once a year in the summertime and attributes them to drinking more soda and probably not enough water. Her symptoms include sore throat followed by upset stomach followed by left flank pain radiating to right flank and pain down her legs - symptoms started yesterday. She developed a burning pressure with urination in the middle of the week. Thought this was a yeast infection so treated with Monistat without relief. Has had no abnormal vaginal discharge with a history of BV - unsure if this is the same. Has been using vagasil and reports she knows she is sensitive to body washes/scented soaps. Denies frequency or urgency with urination. She has also had diarrhea which she does not typically get with kidney stones and is unsure why. Has not assessed her stool for hematochezia. Denies abdominal pain, nausea, vomiting, fever, chills. She has had reduced appetite but is tolerating food. Last ate eggs at 9 AM this morning. - she is sexually active with her child's father (has an 8-month-old). Vaginal delivery without complications. Has had her menstrual cycle since delivering baby however missed her menstrual cycle last month - possibly . - History of Current Complaint Chief Complaint: EDFlankPain Time Seen by Provider: 10/06/18 13:38 Stated Complaint: KIDNEY STONES PER PT Hx Obtained From: Patient, Family/Press Worker Helper - female friend Hx Last Menstrual Period: 04/07/17 Pain Intensity: 9 - Additional Pertinent History Primary Care Physician: ROS - Allergy/Home Medications Allergies/Adverse Reactions: Allergies Allergy/AdvReac Type Severity Reaction Status Date / Time No Known Allergies Allergy Verified 10/06/18 12:50 PMH/Surg Hx/FS Hx/Imm Hx Previously Healthy: Yes Endocrine/Hematology History: Denies: Hx Anticoagulant Therapy, Hx Blood Disorders, Hx Diabetes, Hx Thyroid Disease Cardiovascular History: Denies: Hx Pacemaker/ICD Respiratory History: Reports: Hx Seasonal Allergies Denies: Hx Asthma GI History: Denies: Hx Gall Bladder Disease, Hx Gastroesophageal Reflux Disease, Hx Hiatal Hernia, Hx Irritable Bowel, Hx Ulcer History: Reports: Hx Kidney Infection, Hx Kidney Stones, Other Problems/ Disorders - HX PCOS, kidney stones Musculoskeletal History: Reports: Other Musculoskeletal History - Lt foot fx Sensory History: Reports: Hx Contacts or Glasses Denies: Hx Hearing Aid Opthamlomology History: Reports: Hx Contacts or Glasses Neurological History: Reports: Other Neuro Impairments/Disorders - 5 concussions Psychiatric History: Reports: Hx Anxiety - no meds, has counselor - does not feel she's interactive, Hx Depression Denies: Hx Panic Disorder - Surgical History Surgery Procedure, Year, and Place: wisdom teeth extraction, t&a Infectious Disease History: No Infectious Disease History: Denies: Traveled Outside the [place] in Last 30 Days - Family History Known Family History: Positive: Unknown - Patient is adopted - Social History Alcohol Use: None Hx Substance Use: No Substance Use Type: Reports: Marijuana Substance Use Comment - Amount & Last Used: PT states she stopped when she got (marijuana)not smoking now Hx Tobacco Use: Yes - not currently Smoking Status (MU): Never Smoked Tobacco Review of Systems Constitutional: Negative Eyes: Negative ENT: Negative Cardiovascular: Negative Respiratory: Negative Positive: Diarrhea. Negative: Abdominal Pain, Vomiting, Nausea Positive: see HPI Musculoskeletal: Other - B/L flank pain Psychological: Normal - concerned All Other Systems Reviewed And Are Negative: Yes Physical Exam Triage Information Reviewed: Yes Vital Signs On Initial Exam: Initial Vitals Temp Pulse Resp BP Pulse Ox 98.9 F 58 14 116/65 99 10/06/18 12:46 10/06/18 12:46 10/06/18 12:46 10/06/18 12:46 10/06/18 12:46 Vital Signs Reviewed: Yes Appearance: Positive: Well-Nourished, Pain Distress - Appears mildly fatigued, lying on stretcher Skin: Positive: Warm, Skin Color Reflects Adequate Perfusion, Dry Head/Face: Positive: Normal Head/Face Inspection Eyes: Positive: Normal, EOMI, LUISA, Conjunctiva Clear - anicteric sclera ENT: Positive: Normal ENT inspection, Hearing grossly normal, Pharynx normal - mucosa moist Neck: Positive: Supple Respiratory/Lung Sounds: Positive: Clear to Auscultation, Breath Sounds Present. Negative: Rales, Rhonchi, Wheezes Cardiovascular: Positive: Normal, RRR Abdomen Description: Positive: Nontender, No Organomegaly, Soft, CVA Tenderness (R), CVA Tenderness (L) Bowel Sounds: Positive: Present Pelvic Exam: Positive: External Exam Normal, Bimanual Exam Normal, No Cerv. Motion Tender, Discharge - watery d/c - fishy odor. Negative: Active Bleeding, Cervicitis, Lesions, Mass Musculoskeletal: Positive: Strength/ROM Intact, Pain @ - in back with transitioning from lying reclined to sitting upright Neurological: Positive: Normal, Sensory/Motor Intact, Alert, Oriented to Person Place, Time, CN Intact II-III Psychiatric: Positive: Normal - Pep Coma Scale Best Eye Response: 4 - Spontaneous Best Motor Response: 6 - Obeys Commands Best Verbal Response: 5 - Oriented Coma Scale Total: 15 Diagnostics - Vital Signs Vital Signs Temp Pulse Resp BP Pulse Ox 10/06/18 12:46 98.9 F 58 14 116/65 99 - Laboratory Lab Results: Lab Results 10/06/18 Range/Units 13:41 Urine Color Yellow Urine Appearance Cloudy Urine pH 6.0 (5-9) Ur Specific [place] 1.021 (1.010-1.030) Urine Protein Negative (Negative) Urine Ketones Negative (Negative) Urine Blood Negative (Negative) Urine Nitrate Negative (Negative) Urine Bilirubin Negative (Negative) Urine Urobilinogen Negative (Negative) Ur Leukocyte Esterase Negative (Negative) Urine Glucose Negative (Negative) Result Diagrams: 10/06/18 15:23 10/06/18 15:23 Lab Statement: Any lab studies that have been ordered have been reviewed, and results considered in the medical decision making process. Re-Evaluation - Re-Evaluation First Eval Change: Improved - pain improved w/ med GIGU Course/Dx - Course Course Of Treatment: CT: Lt renal calculi - nonobstructing - will tx pain and have her f/u w/ urology - pt has already been seen by Dr. Borges - will call Monday or return to ED if worse before then. U/A clear today and CBC, lactic acid, CRP w/o signs of infection - will refrain from anbx. Suspect BV - no PID - will initiate tx and f/u w/ PP - advised we will call if other tx's are necessary. Reviewed danger s/sx of when to return to ED. - Diagnoses Provider Diagnoses: Renal calculus, left, Bacterial vaginosis Discharge - Sign-Out/Discharge Documenting (check all that apply): Patient Departure Patient Received Moderate/Deep Sedation with Procedure: No - Discharge Plan Condition: Stable Disposition: HOME Prescriptions: metroNIDAZOLE VAGINAL 0.75%* 1 applic VAGINAL BEDTIME #1 tube oxyCODONE/Acetamin 5/325 MG* [Percocet 5/325 TAB*] 1 tab PO Q6H PRN #20 tab MDD 4 PRN Reason: Pain Patient Education Materials: Bacterial Vaginosis (ED), Kidney Stones (ED), How to Strain Your Urine (ED) [facility], [Z.CONVERSION PROVIDER TYPE] - Thomas Borges MD [Medical Doctor] - Additional Instructions: For your kidney stone, you may alternate 800 mg of ibuprofen with food every 8 hours with Percocet every 6 hours as needed for pain. Strain your urine every time until seen by urology. Call Dr. Borges Monday to schedule an appointment. If in the meantime you develop worsening of flank pain, difficulty with urination, bloody urine, fever, chills, difficulty tolerating food or drink by mouth, severe abdominal pain, return to the emergency department. For your vaginal infection, an intravaginal antibiotic has been prescribed. Use for 5 nights. If symptoms persist, [facility] with [facility]. If symptoms worsen in the meantime (i.e. Fever, abdominal pain, pelvic pain, worsening of vaginal discharge, nausea, vomiting, etc.), Return to the ED. - Billing Disposition and Condition Condition: STABLE Disposition: Home
[2018-10-06 15:30] LABS: ABS Basophils 0.1 10^3/ul (0-0.2); ABS Eosinophils 0.3 10^3/ul (0-0.6); ABS Lymphocytes 3.1 10^3/ul (1.0-4.8); ABS Monocytes 0.5 10^3/ul (0-0.8); ABS Neutrophils 4.4 10^3/ul (1.5-7.7); Eosinophil % 3.4 %; Hematocrit 40 % (35-47); Hemoglobin 13.4 g/dL (12.0-16.0); Lymphocyte % 36.5 %; Mean Corpuscular HGB Conc 33 g/dL (31-36); Mean Corpuscular Hemoglobin 30 pg (27-31); Mean Corpuscular Volume 90 fL (80-97); Mean Platelet Volume 10.6 fL (7.4-10.4); Nucleated Red Blood Cells % 0.1; Platelet Count 176 10^3/uL (150-450); Red Blood Count 4.46 10^6 /uL (3.70-4.87); Red Cell Distribution Width 13 % (10-15); White Blood Count 8.4 10^3/uL (3.5-10.8)
[2018-10-06 15:49] LABS: ALT 11 U/L (7-52); AST 14 U/L (13-39); Albumin 4.5 g/dL (3.2-5.2); Albumin/Globulin Ratio 2.1 (1-3); Alkaline Phosphatase 57 U/L (34-104); Anion Gap 6 mmol/L (2-11); BUN/Creatinine Ratio 19.8 (8-20); Blood Urea Nitrogen 16 mg/dL (6-24); C Reactive Protein < 1.00 mg/L (<8.01); CO2 Carbon Dioxide 23 mmol/L (22-32); Calcium 9.3 mg/dL (8.6-10.3); Chloride 109 mmol/L (101-111); EGFR Non-African American 88.4 (>60); Globulin 2.1 g/dL (2-4); Glucose 82 mg/dL (70-100); Potassium 3.8 mmol/L (3.5-5.0); Sodium 138 mmol/L (135-145); Total Protein 6.6 g/dL (6.4-8.9)
[2018-10-06 15:54] LABS: HCG Pregnancy < 0.60 mIU/mL
[2018-10-06] MEDS ORDERED: Ibuprofen TAB* 400 MG PO ONE (16:58)
[2018-10-06] MEDS ORDERED: oxyCODONE TAB* 5 MG TAB PO ONE (16:58)
[2018-10-06 17:27] VITALS: BP 114/67
[2018-10-08 14:09] LABS: Neisseria gonorrhoeae (GC) RNA Negative (Negative)
[2018-10-08 14:19] LABS: Trichomonas vaginalis Result Negative (Negative)
--- NOTE | 2018-10-09 12:57 | PN ---
Progress Note - Progress Note Date of Service: 10/07/18 Note: Vaginal DNA positive for Gardnerella Patient was placed on Flagyl prior to discharge Nothing further this time
== END 2018-10-06 17:26 | disposition home or self-care (01) ==
LOC: ED 12:28
DX: N20.0 Calculus of kidney (principal); N76.0 Acute vaginitis; B96.89 Other specified bacterial agents as the cause of diseases classified elsewhere
CPT/HCPCS: 36415; 74176; 80053; 81003; 83605; 84702; 85025; 86140; 87480; 87491; 87510; 87591; 87661; 99283; A9270-GY